=== PATIENT | female | born 1945 | race Caucasian/White ===

== ENCOUNTER 2018-03-10 14:55 | Emergency (ER) | payer MEDICARE, OTHER, SELFPAY ==
[2018-03-10 14:56] VITALS: BP 122/72; PULSE 60; RESP 14; TEMP 36.2; O2SAT 99; BMI 23.8
--- NOTE | 2018-03-10 15:22 | EKG12_ITS ---
Test Reason : SYNCOPE Blood Pressure : / mmHG Vent. Rate : 053 BPM Atrial Rate : 053 BPM P-R Int : 168 ms QRS Dur : 072 ms QT Int : 484 ms P-R-T Axes : 012 000 018 degrees QTc Int : 454 ms Sinus bradycardia Low voltage QRS (limb leads) Confirmed by DICK URIAS, JOSE ([id number]), industrial editor KRISTOPHER DE LA TORRE ([id number]) on 03/12/2018 11:47:24 AM Referred By: INES Confirmed By:JOSE JENNINGS MD
--- NOTE | 2018-03-10 15:29 | ED.VISSUMM ---
- ER Visit Summary Date of Service: 03/10/18 Chief Complaint: Syncope History of Present Illness: The patient is a [address] Becerril. She reports approximately 10:00 this morning she had just stood from having a bowel movement. She reports that she had minimal straining while doing this. She had no symptoms while on the commode. Specifically she denies lightheadedness, chest pain, palpitations, shortness of breath, or abdominal pain. She stood up and had pulled up her pants when she had a syncopal episode. She denied any symptoms that preceded this. Patient estimates that she was out for 1-2 minutes. When she woke she was diaphoretic. However, she still was not experiencing any chest pain, palpitations, abdominal pain, or nausea. She reports that she took her blood pressure and it was 95 systolic this morning. States that typically her blood pressure is 120/80. She states that she was seen in the office and her blood pressure was 102 systolic while sitting and 90 systolic when she stood. Patient denies any injury from the fall. She did not hit her head and does not have a headache now. She is not on blood thinners. She denies any neck, back, shoulder, wrist, or hip pain. Patient has not been ill recently. She denies any chest pain or change in dyspnea exertion in the past month. Review of systems: General: No fever, chills, cold sweats. Cardiovascular: No chest pain, palpitations. Respiratory: No cough, shortness of breath, dyspnea on exertion. Gastrointestinal: No abdominal pain, nausea, vomiting, diarrhea, melena, or hematochezia. Genitourinary: No dysuria, frequency, hematuria. Skin: No rash. Neuro: No headache, numbness, weakness. Physical Examination: Vitals: Stable. Afebrile. General: Well-nourished and well-developed. Head: Normocephalic atraumatic. Neck: Supple, no lymphadenopathy. No JVD. Nontender. Cardiovascular: Regular rate and rhythm. No murmurs. Respiratory: No respiratory distress. Clear to auscultation bilaterally. Abdominal: Soft, nontender, nondistended, normal bowel sounds. No guarding, rebound, or peritoneal signs. Back: Nontender. Extremities: Nontender, no edema. Skin: Normal color, no rash. Neurologic: Alert and oriented ?3. Cranial nerves II through XII are intact. Normal strength and sensation. Psych: Normal affect. Test Results: EKG is sinus bradycardia at 53. Is unchanged from December 2015 except her rate was 83 then. Troponin is negative. Chem-7 is marked for BUN of 19 and a BUN/creatinine ratio 32.8. CBC is marked for monocytes of 11. UA shows leukocytes, but is otherwise negative. Emergency Department Course and Treatment: Patient had positive orthostatic vital signs. She was given a liter of normal saline and feels much improved. Treatment Plan: Patient will be discharged instructions to follow with her primary care physician 1-2 days if not improving. Push fluids. Return to the emergency department for any worsening symptoms. Disposition: To home in improved and stable condition. Impression: 1. Orthostatic hypotension. 2. Dehydration. This note was generated with [employer] dictation software. It may contain incorrect words, spelling, and punctuation that were not noted in review of the chart prior to signing ED Disposition - Plan for ED Patient: Chief Complaint: Syncope Instructions: ED Hypotension Orthostatic Referrals: Annie Becerril DO [Primary Care Provider] - 1-2 Days if not improving
[2018-03-10] MEDS: 0.9% Normal Saline 1,000 ML 1000 ML IV (16:00)
[2018-03-10 16:11] LABS: Absolute Lymphocyte Count 1.84 X10^3/ul (0.83-4.51); Absolute Neutrophil Count 3.4 X10^3/uL (2.0-7.7); Basophil# 0.01 X10^3/uL; Basophil% 0.2 % (0-1); Eosinophil# 0.08 X10^3/uL; Eosinophils% 1.3 % (0-5); Hematocrit 40.5 % (37-47); Hemoglobin 13.7 g/dl (12.0-15.0); Lymphocyte # 1.84 X10^3/ul (4.0); Lymphocyte % 30.8 % (19-41); Mean Corp Hgb Conc 33.8 g/gl (32-36); Mean Corpuscular Hgb 30.3 pg (27.0-32.0); Mean Corpuscular Volume 89.6 fL (81-99); Mean Platelet Vol. 10.2 fl (6.2-12.0); Monocyte# 0.67 X10^3/uL; Monocyte% 11.2 % (0-10); Neutrophil # 3.38 X10^3/uL (2.7-7.7); Neutrophil % 56.5 % (47-70); POSITIVE COUNT NO; POSITIVE DIFFERENTIAL NO; POSITIVE MORPHOLOGY NO; Platelet Count 173 K/mm3 (150-450); RBC Distribution Width CV 14.1 % (11.6-14.6); RBC Distribution Width SD 45.8 fl (35.1-43.9); Red Blood Count 4.52 M/mm3 (4.2-5.4)
[2018-03-10 16:13] LABS: Bacteria 0 SEEN /hpf (None Seen); Mucous, Urine 0 SEEN /hpf (<or=2+); Red Blood Cells-Urine 0 SEEN /hpf (0-5); Squamous Epithelial Cells - UA 0 SEEN /hpf (5-10); White Blood Cells 0 SEEN /hpf (0-5)
[2018-03-10 16:19] LABS: Color, Urine Yellow (Yellow); Glucose, Dipstick Normal (Normal); Ketone-Dipstick Negative (Negative); Leukocyte Esterase-Dipstick 25 /ul (Negative); Nitrite-Dipstick Negative (Negative); Occult Blood-Urine Negative /ul (Negative); Protein-Dipstick Negative (Negative); Urine Bilirubin Dipstick Negative (Negative); Urine Clarity Clear (Clear); Urine Urobilinogen Normal (Normal)
[2018-03-10 16:22] VITALS: BP 105/83; BP 118/68; BP 125/65; PULSE 52; PULSE 54; PULSE 66
[2018-03-10 16:29] LABS: Anion Gap 8 (5-15); BUN 19 mg/dL (7-18); BUN/Creat Ratio 32.8 RATIO (10-20); Calcium,Total 9.1 mg/dL (8.5-10.1); Chloride 105 mmol/L (98-107); Creatinine, Serum 0.58 mg/dL (0.55-1.02); EST Glomerular Filtration Rate 109 mL/min (>60); Est Glom Filt Rate - Afr Amer 132 mL/min (>60); Estimated Creatinine Clearance 38.94 ml/min; Glucose 91 mg/dL (74-106); Magnesium 2.1 mg/dL (1.6-2.6); Potassium 3.8 mmol/L (3.5-5.1); Sodium Level 137 mmol/L (136-145)
[2018-03-10 18:04] VITALS: BP 113/65; PULSE 67; RESP 12; O2SAT 96
[2018-03-10] MEDS: 0.9% Normal Saline 1,000 ML 999 ML IV (18:16)
[2018-03-10 19:09] VITALS: BP 123/63; PULSE 68; RESP 21; O2SAT 98
== END 2018-03-10 19:11 | disposition home or self-care (01) ==
PROVIDERS: Emergency Provider Emergency Medicine; Family Provider Internal Medicine; PCP Internal Medicine
DX: I95.1 Orthostatic hypotension (principal); E86.0 Dehydration; E78.00 Pure hypercholesterolemia, unspecified; F32.9 Major depressive disorder, single episode, unspecified; M85.80 Other specified disorders of bone density and structure, unspecified site; M06.9 Rheumatoid arthritis, unspecified; Z85.3 Personal history of malignant neoplasm of breast; Z79.82 Long term (current) use of aspirin; Z79.899 Other long term (current) drug therapy
CPT/HCPCS: 36591; 80048; 81001; 83735; 84443; 84484; 85025; 93005; 96360; 96361; 99284; J7030; A4216

== ENCOUNTER → 2018-07-13 09:47 | Outpatient (CLI) | payer MEDICARE, OTHER, SELFPAY ==
--- NOTE | 2018-07-13 09:51 | BI_ITS ---
MAMMOGRAPHY - BILATERAL SCREENING REASON FOR EXAM: Female, 72 years old. Routine annual screening examination. PERTINENT HISTORY: Personal history of breast cancer. Prior left lumpectomy with radiation and chemotherapy. TECHNIQUE: Digital bilateral breast javier (3D mammographic acquisition) in the CC and MLO projections. 2-D mediolateral oblique (MLO) and craniocaudad (CC) views of both breasts were obtained. CAD: Full Field Digital Mammography with Computer Added Detection was performed. COMPARISON: Comparison is made with prior study dated July 10, 2017 and June 19, 2016. FINDINGS: Breast Composition: There are scattered areas of fibroglandular density. There are no dominant masses or suspicious calcifications. Once again, the patient is status post left lumpectomy with resultant breast deformity and architectural distortion. This is unchanged. No other significant abnormalities are identified. There has been no significant change since the prior study. BI/SCREENING MAMM (CAD), BILAT IMPRESSION: Stable bilateral screening mammogram. Yearly follow-up mammogram recommended. (A) ASSESSMENT CATEGORY: BIRADS Category 2: Benign. A letter regarding these results will be sent to the patient by the facility within 30 days. Approximately 10% of breast cancers are not detected by mammography. A normal mammogram should not delay biopsy of a clinically suspicious abnormality. [id number] Electronically Signed: Ramiro Gilman MD at 14:01 EST Tel [phone], Service support ,
== END ==
PROVIDERS: Family Provider Internal Medicine; PCP Internal Medicine; Referring Provider Radiology Radiation Oncology; Visit Provider Radiology Radiation Oncology
DX: Z12.31 Encounter for screening mammogram for malignant neoplasm of breast (principal); Z85.3 Personal history of malignant neoplasm of breast
CPT/HCPCS: 77063; 77067

== ENCOUNTER → 2018-11-12 14:04 | Outpatient (CLI) | payer MEDICARE, OTHER, SELFPAY ==
[2018-07-21 13:09] VITALS: BMI 24.3
== END ==
PROVIDERS: Family Provider Internal Medicine; PCP Internal Medicine; Referring Provider Urology; Visit Provider Urology
DX: R30.0 Dysuria (principal)
CPT/HCPCS: 87086; 87088

== ENCOUNTER → 2019-07-14 09:49 | Outpatient (CLI) | payer MEDICARE, OTHER, SELFPAY ==
[2019-01-25 13:47] VITALS: BMI 25.4
--- NOTE | 2019-07-14 09:51 | BI_ITS ---
MAMMOGRAPHY - BILATERAL SCREENING REASON FOR EXAM: Female, 73 years old. Routine annual screening examination. PERTINENT HISTORY: Personal history of breast cancer. Prior left lumpectomy with chemotherapy and radiation therapy. TECHNIQUE: Digital bilateral breast almita (3D mammographic acquisition) in the CC and MLO projections. 2-D mediolateral oblique (MLO) and craniocaudad (CC) views of both breasts were obtained. CAD: Full Field Digital Mammography with Computer Added Detection was performed. COMPARISON: Comparison is made with prior examination of July 13, 2018 and July 10, 2017. FINDINGS: Breast Composition: The breasts are heterogeneously dense, which may obscure small masses. There are no dominant masses or suspicious calcifications. Postoperative changes with deformity and architectural distortion in the deep mid lateral portion of the left breast. A port is seen in the axillary region of the right breast. No other significant abnormalities are identified. There has been no significant change since the prior study. BI/SCREEN MAMM (CAD) W/ALMITA BILAT IMPRESSION: Stable bilateral screening mammogram. Yearly follow-up mammogram recommended. (A) ASSESSMENT CATEGORY: BIRADS Category 2: Benign. A letter regarding these results will be sent to the patient by the facility within 30 days. Approximately 10% of breast cancers are not detected by mammography. A normal mammogram should not delay biopsy of a clinically suspicious abnormality. [id number] Electronically Signed: Ramiro Gilman, at 10:50 EST , Service support ,
== END ==
PROVIDERS: Family Provider Internal Medicine; PCP Internal Medicine; Referring Provider Nurse Practitioner Family; Visit Provider Nurse Practitioner Family
DX: Z12.31 Encounter for screening mammogram for malignant neoplasm of breast (principal); Z85.3 Personal history of malignant neoplasm of breast
CPT/HCPCS: 77063; 77067

== ENCOUNTER → 2020-01-20 12:45 | Outpatient (CLI) | payer MEDICARE, OTHER, SELFPAY ==
[2019-07-22 13:55] VITALS: BMI 26.0
--- NOTE | 2020-01-20 12:54 | CDU_ITS ---
Reason For Study: occlusion and stenosis of carotid artery Rt. Velocities/BP Lt. Velocities/BP Prox CCA 82.6/16.0 cm/sec. Prox CCA 73.9/19.0 cm/sec. Mid CCA 64.3/20.0 cm/sec. Mid CCA 72.8/20.1 cm/sec. Dist CCA 60.4/17.3 cm/sec. Dist CCA 73.9/21.2 cm/sec. Prox ICA 52.6/14.7 cm/sec. Prox ICA 79.4/25.6 cm/sec. Mid ICA 49.9/17.3 cm/sec. Mid ICA 74.1/20.8 cm/sec. Dist ICA 65.6/17.3 cm/sec. Dist ICA 86.0/27.8 cm/sec. Rt. ICA/CCA = 1.0. Lt. ICA/CCA = 1.2. Prox ECA 119.1/14.7 cm/sec. Prox ECA 87.1/12.4 cm/sec. Rt. Vert. 31.1/11.3 cm/sec. Lt. Vert. 69.5/22.3 cm/sec. Right Extracranial There is intimal thickening but no significant atherosclerotic plaque noted in the right common carotid artery. There is heterogeneous, irregular atherosclerotic plaque noted in the right internal carotid artery. There is heterogeneous, irregular atherosclerotic plaque noted in the right external carotid artery. Antegrade flow is noted in the right vertebral artery. Left Extracranial There is heterogeneous, smooth atherosclerotic plaque noted in the left common carotid artery. There is heterogeneous, irregular atherosclerotic plaque noted in the left internal carotid artery. There is heterogeneous, irregular atherosclerotic plaque noted in the left external carotid artery. Antegrade flow is noted in the left vertebral artery. Procedure Carotid Duplex [id number]. The exam was diagnostic. Exam performed in department. Interpretation Summary Mild (<50%) stenosis right extracranial internal carotid. Mild (<50%) stenosis left extracranial internal carotid. Acoustic shadowing is present in the proximal left internal carotid artery, which obscures visualization of the arterial lumen. The degree of stenosis appears to be <50% based upon velocity criteria. However, this cannot be corroborated by kam-scale imaging. Therefore, clinical correlation is advised, and alternative imaging may be helpful. Flow within the vertebral arteries is antegrade bilaterally. Ordering Physician: Annie Becerril Performed By: Don Winters RVT
== END ==
PROVIDERS: PCP Internal Medicine; Referring Provider Internal Medicine; Visit Provider Internal Medicine
DX: I65.23 Occlusion and stenosis of bilateral carotid arteries (principal)
CPT/HCPCS: 93880

== ENCOUNTER → 2020-06-06 11:57 | Outpatient (CLI) | payer MEDICARE, OTHER, SELFPAY ==
[2019-07-22 13:55] VITALS: BMI 26.0
--- NOTE | 2020-06-06 11:59 | US_ITS ---
STUDY: RENAL ULTRASOUND - COMPLETE REASON FOR EXAM: Female, 74 years old. UTI TECHNIQUE: Ultrasound evaluation of the kidneys was performed with real-time and static boles-scale imaging. COMPARISON: None. FINDINGS: Aorta: Not visualized. IVC: Visualized portions appear patent. Right kidney: Measures 9.8 cm. Normal contour. Renal cortical thickness appears normal. No cysts. No masses, stones, or hydronephrosis identified. Left kidney: Measures 10.2 cm. Normal contour. Renal cortical thickness appears normal. No cysts. No masses, stones, or hydronephrosis identified. Bladder: No intrinsic masses, stones, or abnormal dilatation noted. US/Kidney and Bladder IMPRESSION: Renal ultrasound is within normal limits. Electronically Signed: Eric Salguero, at 21:29 EDT Tel , Service support ,
== END ==
PROVIDERS: PCP Internal Medicine; Referring Provider Urology; Visit Provider Urology
DX: N39.0 Urinary tract infection, site not specified (principal)
CPT/HCPCS: 76770

== ENCOUNTER 2020-06-20 08:31 | Day surgery (SDC) | payer MEDICARE, OTHER, SELFPAY ==
[2019-07-22 13:55] VITALS: BMI 26.0
--- NOTE | 2020-06-19 10:30 | EKG12_ITS ---
Test Reason : PREOP Blood Pressure : / mmHG Vent. Rate : 061 BPM Atrial Rate : 061 BPM P-R Int : 152 ms QRS Dur : 070 ms QT Int : 426 ms P-R-T Axes : 014 -04 016 degrees QTc Int : 428 ms Normal sinus rhythm Normal ECG Confirmed by KEIRA URIAS, GAUILAR ([id number]), associate entertainment editor KINZA GÓMEZ ([id number]) on 06/20/2020 10:56:54 AM Referred By: Concepción Conway Confirmed By:AGUILAR CROCKETT MD
--- NOTE | 2020-06-19 10:34 | RAD_ITS ---
STUDY: X-RAY CHEST REASON FOR EXAM: Female, 74 years old. Preop chest xray for biopsy of urinary bladder, pt states lumpectomy on left side x 5 years ago TECHNIQUE: PA and lateral views of the chest. COMPARISON: Comparison is made with prior examination dated 12/14/2015. FINDINGS: A right-sided portacatheter is in situ with the tip at the junction of the superior vena cava and right atrium. Hyperinflation. The lungs are clear. There is no demonstrated pleural abnormality. Normal size heart. Normal mediastinum and inna. Normal visualized pulmonary arteries. There is atherosclerotic calcification of the aortic arch with tortuosity. There are diffuse degenerative changes of the visualized thoracic spine. Normal visualized ribs, clavicles, and shoulders. Hiatal hernia. RAD/Chest PA and Lateral IMPRESSION: Hyperinflation. No acute abnormality is seen. Electronically Signed: Ramiro Gilman, at 15:59 EST , Service support ,
[2020-06-19 11:19] LABS: Hematocrit 41.3 % (37-47); Hemoglobin 13.2 g/dL (12.0-15.0); Mean Corpuscular Hgb 29.5 pg (27.0-32.0); Mean Corpuscular Volume 92.4 fL (81-99); Mean Platelet Vol. 9.9 fl (6.2-12.0); Platelet Count 170 K/mm3 (150-450); RBC Distribution Width CV 13.5 % (11.6-14.6); RBC Distribution Width SD 44.9 fl (35.1-43.9); Red Blood Count 4.47 M/mm3 (4.2-5.4); White Blood Count 4.7 K/mm3 (4.4-11.0)
[2020-06-19 11:50] LABS: AST(SGOT) 21 U/L (15-37); Alanine Aminotransfer ALT/SGPT 26 U/L (13-56); Albumin, Serum 3.9 g/dL (3.2-5.0); Alkaline Phosphatase 64 U/L (45-117); Bilirubin, Direct 0.18 mg/dL (0.00-0.30); Globulin 3.4 g/dL (2.2-4.2); Protein, Total 7.3 g/dL (6.4-8.2)
[2020-06-20 08:46] VITALS: BP 120/85; PULSE 72; RESP 14; TEMP 36.3; O2SAT 97; BMI 25.2
[2020-06-20] MEDS: Lactated Ringers 1,000 ML 100 ML IV (09:10)
--- NOTE | 2020-06-20 09:26 | PCM.OPRPT ---
Problem List (1) Neoplasm of unspecified behavior of bladder Status: Acute Report of Operation Date of Procedure: 06/20/20 Pre-Operative Diagnosis: bladder neoplasm unspecified behavior Post-Operative Diagnosis: same Surgery/Procedure Performed:: cystoscopy with bladder biopsy and fulguration Type of Anesthesia:: General Specimen's removed: Bladder biopsy Description of Procedure: The patient is a 74-year-old female who had a cystoscopy done in the office for evaluation of urinary tract infections. She was identified as having 2 areas of erythema possible ulceration versus early neoplasm. She now presents for biopsy and fulguration for hemostatic control and tissue treatment. Informed consent was obtained including a discussion of COVID-19. Patient was taken to the operating room and placed on the operating room table. Anesthesia monitored the head, neck, airway, IV access and vital signs throughout the case. Once anesthesia was appropriately administered the patient was placed into dorsal lithotomy position was prepped and draped in usual sterile fashion. The cystoscope with 30 degree lens was inserted through the urethra under direct visualization. The ulcerations seen in the office were seen here today as well. There is one more towards the right lateral wall but also posterior approximately 1.5 cm in size. A second posterior bladder wall ulceration/area of erythema was visualized as well approximately 1 cm in size. Both of these areas were biopsied with flexible biopsy forceps. Both areas were fulgurated for hemostatic control and tissue treatment. The patient's bladder was then emptied. Hemostasis was achieved and there was no injury to the ureters. At this time the patient was awakened and taken to the recovery room in good condition. There were no complications during the procedure. Grafts/Implants Used: none - Complications None - Admit VTE Documentation VTE Present on Admission: Yes VTE Mechan Device Prophylaxis: SCD's VTE Pharm Prophylaxis ordered?: No Reason prophylaxis not ordered:: Treatment Not Indicated
--- NOTE | 2020-06-20 09:30 | PCM.DC.URO ---
Discharge Diet: No Restrictions Discharge Activity: May not drive while taking narcotic pain medications. May resume sexual activity in: No Restrictions Call your doctor if you observe: Fever of 101 or Higher, Inability to urinate, Inability to have a bowel movement Allergies/Adverse Reactions: Allergies No Known Allergies Allergy (Verified 06/16/20 15:06) Medications to take at Discharge Cholecalciferol (VIT D3) [Vitamin D3] 1,000 unit PO MOFR 09/01/15 Citalopram [Celexa] 20 mg PO DAILY 09/01/15 Folic Acid 1 mg PO DAILY@0800 09/01/15 Multivitamins,Therapeutic [Multivitamin] 1 tablet PO DAILY 09/01/15 Simvastatin [Zocor] 20 mg PO QHS 09/01/15 Etanercept [Enbrel] 25 mg SQ TUTH 01/21/17 Methotrexate 6 tab PO QWEEK 01/21/17 Alendronate Sodium [Fosamax] 10 mg PO QWEEK 01/20/18 Aspirin [Aspirin EC] 81 mg PO DAILY 03/10/18 Hypromellose [Systane Gel] 10 gm LEFT EYE QHS 03/10/18 Lidocaine/Prilocaine [Lidocaine-Prilocaine Cream] 1 applicatio TP DAILY PRN PRN 03/10/18 Cephalexin [Keflex] 500 mg PO Q12 3 Days #6 cap 06/20/20 Hydrocodone Bitart/Apap 5-325 [[place] 5MG-325MG] 1 tablet PO Q6H PRN PRN 7 Days #5 tablet 06/20/20 Phenazopyridine [Pyridium] 100 mg PO TID #30 tab 06/20/20 The following prescriptions were given: Cephalexin [Keflex] 500 mg PO Q12 3 Days #6 cap Transmission Status: Pending to [facility] Hydrocodone Bitart/Apap 5-325 [[place] 5MG-325MG] 1 tablet PO Q6H PRN PRN 7 Days #5 tablet PRN Reason: Pain Transmission Status: Sent to [facility] Phenazopyridine [Pyridium] 100 mg PO TID #30 tab Transmission Status: Pending to [facility] Primary Care Physician: Annie Becerril DO [Primary Care Provider] - Test Results: Test results from this visit will be discussed in further detail at your follow-up appointment, if applicable. Please Follow Up With: Concepción Conway MD When: call office for appt next week Proposed Discharge Date: 06/20/20
[2020-06-20] MEDS: Cefazolin 2 GM in 0.9% Normal Saline 100 ML IV (09:39)
--- NOTE | 2020-06-20 10:20 | BLA_PTH ---
PATIENT: CHARMAINE DÍAZ LOC: [facility] U#:[id number] AGE/SX: 74/F ROOM: RE06/20/[address]: Dr. Concepción Conway MD : [id number] BED: DIS: 06/20/2020 SPEC #: [id number] RECD: 06/20/20 12:03 STATUS: PARKER ROBB #: [id number] DARIO: 06/20/20 10:[address]: Concepción Conway DEPT: SURGICAL PATHOLOGY RECD BY: Queenie Kramer ENTERED: 06/20/20 13:04 SP TYPE: BLADDER BX OTHR DR: Dr. Annie Becerril DO Tissues: Urinary bladder, NOS Procedures: Surgery Specimen Level IV HEADER OPERATION: Cysto, biopsy, fulguration, bladder tumor PRE-OP DIAGNOSIS: Neoplasm of bladder TISSUE SUBMITTED: Bladder biopsy MICROSCOPIC DIAGNOSIS Bladder, biopsy: Fragments of urothelial mucosa with moderate chronic inflammation and mild acute inflammation. Negative for malignancy. See comment. JOSE:estrellita 06/21/20 COMMENT The epithelium is denuded in most of the specimen. Detrusor muscle is present in the submitted specimen. MICROSCOPIC DESCRIPTION Slides are reviewed. GROSS DESCRIPTION Received in fixative is one container labeled with the patient's name and designated bladder biopsy. The specimen consists of multiple irregular fragments of light hernandez soft tissue that in aggregate measure 1 x 0.2 x 0.1 cm. The specimen is totally submitted in one cassette. / JOSE:estrellita 06/20/29 TC:3 CPT: 90143
[2020-06-20 10:25] VITALS: BP 120/85; BP 128/76; PULSE 71; RESP 16; TEMP 36.3; O2SAT 94
[2020-06-20 10:30] VITALS: BP 120/85; BP 122/56; PULSE 60; RESP 16; O2SAT 95
[2020-06-20 10:45] VITALS: BP 120/85; BP 127/78; PULSE 64; RESP 16; O2SAT 95
[2020-06-20 11:00] VITALS: BP 120/85; BP 145/44; PULSE 60; RESP 16; TEMP 36.3; O2SAT 95
[2020-06-20 11:48] VITALS: BP 120/85; BP 134/72; PULSE 73; RESP 18; TEMP 36.3; O2SAT 97
== END 2020-06-20 11:52 | disposition home or self-care (01) ==
LOC: SDC 08:31 → AC 08:32
PROVIDERS: Anesthesiology; PCP Internal Medicine; Referring Provider Urology; Visit Provider Urology
PROC: 0TBB8ZX Excision of Bladder, Via Natural or Artificial Opening Endoscopic, Diagnostic (ICD-10-PCS; CPT 52204; principal; 2020-06-20 10:10)
DX: D41.4 Neoplasm of uncertain behavior of bladder (principal); N39.46 Mixed incontinence; N95.2 Postmenopausal atrophic vaginitis; R35.1 Nocturia; F32.9 Major depressive disorder, single episode, unspecified; M06.9 Rheumatoid arthritis, unspecified; E78.2 Mixed hyperlipidemia; Z78.0 Asymptomatic menopausal state; Z85.3 Personal history of malignant neoplasm of breast; Z87.440 Personal history of urinary (tract) infections; Z79.899 Other long term (current) drug therapy; Z79.82 Long term (current) use of aspirin; Z87.891 Personal history of nicotine dependence; Z20.828 Contact with and (suspected) exposure to other viral communicable diseases
CPT/HCPCS: 00910; 52204; 36415; 71046; 80076; 85027; 87426; 88305; 93005; C9803; J7120; J2405

== ENCOUNTER → 2020-07-07 08:46 | Outpatient (CLI) | payer MEDICARE, OTHER, SELFPAY ==
[2020-06-20 08:46] VITALS: BMI 25.2
[2020-07-07 09:20] LABS: Absolute Lymphocyte Count 1.43 X10^3/uL (0.83-4.51); Absolute Neutrophil Count 2.5 X10^3/uL (2.0-7.7); Basophil# 0.04 X10^3/uL; Basophil% 0.9 % (0-1); Eosinophil# 0.12 X10^3/uL; Eosinophils% 2.6 % (0-5); Hemoglobin 13.1 g/dL (12.0-15.0); Lymphocyte # 1.43 X10^3/ul (4.0); Lymphocyte % 30.6 % (19-41); Mean Platelet Vol. 9.9 fl (6.2-12.0); Monocyte# 0.63 X10^3/uL; Monocyte% 13.5 % (0-10); NRBC Flagged by Analyzer 0 % (0-5); Neutrophil # 2.45 X10^3/uL (2.7-7.7); Neutrophil % 52.2 % (47-70); Platelet Count 191 K/mm3 (150-450); RBC Distribution Width CV 13.8 % (11.6-14.6); RBC Distribution Width SD 46.7 fl (35.1-43.9); Red Blood Count 4.36 M/mm3 (4.2-5.4); White Blood Count 4.7 K/mm3 (4.4-11.0)
[2020-07-07 10:17] LABS: ALB/GLOB Ratio 1.1 RATIO (0.9-2.4); AST(SGOT) 29 U/L (15-37); Alanine Aminotransfer ALT/SGPT 27 U/L (13-56); Albumin, Serum 3.7 g/dL (3.2-5.0); Alkaline Phosphatase 66 U/L (45-117); Anion Gap 5 (5-15); BUN 22 mg/dL (7-18); BUN/Creat Ratio 25.9 RATIO (10-20); Chloride 110 mmol/L (98-107); Cholesterol 140 mg/dL (200); Creatinine, Serum 0.85 mg/dL (0.55-1.02); EST Glomerular Filtration Rate 70 mL/min (>60); Est Glom Filt Rate - Afr Amer 84 mL/min (>60); Globulin 3.5 g/dL (2.2-4.2); Glucose 105 mg/dL (74-106); High Density Lipoprotein 56 mg/dL; Potassium 4.2 mmol/L (3.5-5.1); Protein, Total 7.2 g/dL (6.4-8.2); Sodium Level 141 mmol/L (136-145); Thyroid Stim Hormone (TSH) 1.23 uIU/mL (0.358-3.74); Triglycerides 143 mg/dL; Very Low Density Lipoprotein 29 mg/dL (5-40)
== END ==
PROVIDERS: PCP Internal Medicine; Referring Provider Internal Medicine; Visit Provider Internal Medicine
DX: E78.2 Mixed hyperlipidemia (principal)
CPT/HCPCS: 36415; 80053; 80061; 84443; 85025

== ENCOUNTER → 2020-07-19 07:46 | Outpatient (CLI) | payer MEDICARE, OTHER, SELFPAY ==
[2019-07-22 13:55] VITALS: BMI 26.0
[2020-06-20 08:46] VITALS: BMI 25.2
--- NOTE | 2020-07-19 07:48 | BI_ITS ---
MAMMOGRAPHY - BILATERAL SCREENING REASON FOR EXAM: Female, 74 years old. Routine annual screening examination. PERTINENT HISTORY: Personal history of breast cancer. History of prior left lumpectomy with chemotherapy and radiation therapy. TECHNIQUE: Digital bilateral breast almita (3D mammographic acquisition) in the CC and MLO projections. 2-D mediolateral oblique (MLO) and craniocaudad (CC) views of both breasts were obtained. CAD: Full Field Digital Mammography with Computer Added Detection was performed. COMPARISON: Comparison is made with prior study dated 07/14/2019 and 07/13/2018. FINDINGS: Breast Composition: The breasts are heterogeneously dense, which may obscure small masses. Stable deformity of the left breast with architectural distortion in the deep upper lateral aspect of left breast in keeping with the postoperative changes. Stable secretory calcification in the right axillary region. A tissue clip marker is seen in the upper lateral aspect of the right breast. No other significant abnormalities are identified. There has been no significant change since the prior study. BI/SCREEN MAMM (CAD) W/ALMITA BILAT IMPRESSION: Stable bilateral screening mammogram. Yearly follow-up mammogram recommended. (A) ASSESSMENT CATEGORY: BIRADS Category 2: Benign. A letter regarding these results will be sent to the patient by the facility within 30 days. Approximately 10% of breast cancers are not detected by mammography. A normal mammogram should not delay biopsy of a clinically suspicious abnormality. [id number] Electronically Signed: Ramiro Gilman, at 9:28 EST , Service support ,
== END ==
PROVIDERS: PCP Internal Medicine; Referring Provider Internal Medicine Medical Oncology; Visit Provider Internal Medicine Medical Oncology
DX: Z12.31 Encounter for screening mammogram for malignant neoplasm of breast (principal); Z85.3 Personal history of malignant neoplasm of breast
CPT/HCPCS: 77063; 77067

== ENCOUNTER → 2020-09-01 13:16 | Outpatient (CLI) | payer MEDICARE, OTHER, SELFPAY ==
[2020-07-26 11:11] VITALS: BMI 25.3
[2020-09-01 14:52] LABS: Absolute Lymphocyte Count 2.37 X10^3/uL (0.83-4.51); Absolute Neutrophil Count 3.8 X10^3/uL (2.0-7.7); Basophil# 0.06 X10^3/uL; Basophil% 0.8 % (0-1); Eosinophils% 2.8 % (0-5); Hematocrit 34.9 % (37-47); Hemoglobin 11.2 g/dL (12.0-15.0); Lymphocyte # 2.37 X10^3/ul (4.0); Lymphocyte % 33.5 % (19-41); Mean Corp Hgb Conc 32.1 g/dL (32-36); Mean Corpuscular Hgb 31.9 pg (27.0-32.0); Mean Corpuscular Volume 99.4 fL (81-99); Mean Platelet Vol. 10.6 fl (6.2-12.0); Monocyte# 0.65 X10^3/uL; Monocyte% 9.2 % (0-10); NRBC Flagged by Analyzer 0 % (0-5); Neutrophil # 3.77 X10^3/uL (2.7-7.7); Neutrophil % 53.4 % (47-70); Platelet Count 219 K/mm3 (150-450); RBC Distribution Width CV 14.7 % (11.6-14.6); RBC Distribution Width SD 53.1 fl (35.1-43.9); Red Blood Count 3.51 M/mm3 (4.2-5.4); White Blood Count 7.1 K/mm3 (4.4-11.0)
== END ==
PROVIDERS: PCP Internal Medicine; Referring Provider Internal Medicine Rheumatology; Visit Provider Internal Medicine Rheumatology
DX: D64.9 Anemia, unspecified (principal)
CPT/HCPCS: 36415; 85025

== ENCOUNTER → 2020-09-08 | Outpatient (CLI) | payer MEDICARE, OTHER, SELFPAY ==
[2020-07-26 11:11] VITALS: BMI 25.3
[2020-09-08 15:39] LABS: Absolute Lymphocyte Count 2.14 X10^3/uL (0.83-4.51); Absolute Neutrophil Count 2.7 X10^3/uL (2.0-7.7); Basophil# 0.05 X10^3/uL; Basophil% 0.9 % (0-1); Eosinophil# 0.15 X10^3/uL; Eosinophils% 2.6 % (0-5); Hematocrit 39.2 % (37-47); Hemoglobin 12.3 g/dL (12.0-15.0); Lymphocyte # 2.14 X10^3/ul (4.0); Lymphocyte % 37.3 % (19-41); Mean Corp Hgb Conc 31.4 g/dL (32-36); Mean Corpuscular Hgb 31.3 pg (27.0-32.0); Mean Corpuscular Volume 99.7 fL (81-99); Mean Platelet Vol. 10.5 fl (6.2-12.0); Monocyte% 12.2 % (0-10); NRBC Flagged by Analyzer 0 % (0-5); Neutrophil # 2.68 X10^3/uL (2.7-7.7); Neutrophil % 46.8 % (47-70); Platelet Count 218 K/mm3 (150-450); RBC Distribution Width CV 13.8 % (11.6-14.6); RBC Distribution Width SD 50.4 fl (35.1-43.9); Red Blood Count 3.93 M/mm3 (4.2-5.4); White Blood Count 5.7 K/mm3 (4.4-11.0)
[2020-09-08 15:43] LABS: ALB/GLOB Ratio 1.5 RATIO (0.9-2.4); AST(SGOT) 21 U/L (15-37); Alanine Aminotransfer ALT/SGPT 29 U/L (13-56); Albumin, Serum 4.3 g/dL (3.2-5.0); Alkaline Phosphatase 61 U/L (45-117); Anion Gap 6 (5-15); BUN 27 mg/dL (7-18); BUN/Creat Ratio 35.2 RATIO (10-20); Calcium,Total 9.2 mg/dL (8.5-10.1); Chloride 108 mmol/L (98-107); Creatinine, Serum 0.77 mg/dL (0.55-1.02); EST Glomerular Filtration Rate 78 mL/min (>60); Est Glom Filt Rate - Afr Amer 95 mL/min (>60); Globulin 2.8 g/dL (2.2-4.2); Glucose 91 mg/dL (74-106); Potassium 4.3 mmol/L (3.5-5.1); Protein, Total 7.1 g/dL (6.4-8.2); Sodium Level 138 mmol/L (136-145)
== END | disposition home or self-care (01) ==
LOC: LABSPEC 15:11
PROVIDERS: PCP Internal Medicine; Visit Provider Internal Medicine
DX: D64.9 Anemia, unspecified (principal); R17 Unspecified jaundice
CPT/HCPCS: 80053; 85025

== ENCOUNTER 2020-11-07 05:46 | Day surgery (SDC) | payer MEDICARE, OTHER, SELFPAY ==
[2020-07-26 11:11] VITALS: BMI 25.3
[2020-11-07 06:22] VITALS: BP 121/75; PULSE 70; RESP 12; TEMP 36.5; O2SAT 95; BMI 25.4
[2020-11-07] MEDS: Lactated Ringers 1,000 ML 100 ML IV (06:35)
[2020-11-07] MEDS: Lubricating Jelly 60 GM Tube 30 GM TOPICAL (07:23)
[2020-11-07] MEDS: Cefazolin 2 GM in 0.9% Normal Saline 100 ML IV (07:25)
--- NOTE | 2020-11-07 07:30 | PCM.OPRPT ---
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 Informed consent was obtained to proceed with cystoscopy and fulguration under anesthesia. She was taken to the operating room and placed on the operating room table. Anesthesia monitored the head, neck, airway, IV access and vital signs throughout the case. Once anesthesia was apparently administered the patient was placed into dorsal lithotomy position was prepped and draped in usual sterile fashion. A cystourethroscopy was performed through the urethra under direct visualization. There were two areas of ulceration identified one on the patient's right lateral wall approximately 1.5 cm in diameter. The other ulceration was on the patient's left posterior bladder wall and was approximately 1 cm in diameter. Both of these areas were fulgurated for tissue treatment. There were no complications during this procedure. The patient's bladder was emptied and the case was terminated. She was awakened and taken to the recovery room in good condition. Grafts/Implants Used: none - Complications none - Admit VTE Documentation VTE Present on Admission: Yes VTE Mechan Device Prophylaxis: SCD's VTE Pharm Prophylaxis ordered?: No Reason prophylaxis not ordered:: Treatment Not Indicated
--- NOTE | 2020-11-07 07:33 | DCINST_ITS ---
Discharge Diet: No Restrictions Discharge Activity: May not drive while taking narcotic pain medications. May resume sexual activity in: No Restrictions Call your doctor if you observe: Fever of 101 or Higher, Inability to urinate, Inability to have a bowel movement, Calf discomfort, Uncontrolled pain Allergies/Adverse Reactions: Allergies No Known Allergies Allergy (Verified 10/31/20 08:41) Medications to take at Discharge Cholecalciferol (VIT D3) [Vitamin D3] 1,000 unit PO MOFR 09/01/15 Citalopram [Celexa] 20 mg PO DAILY 09/01/15 Folic Acid 1 mg PO DAILY@0800 09/01/15 Multivitamins,Therapeutic [Multivitamin] 1 tablet PO DAILY 09/01/15 Simvastatin [Zocor] 20 mg PO QHS 09/01/15 Etanercept [Enbrel] 25 mg SQ TUTH 01/21/17 Methotrexate 6 tab PO QWEEK 01/21/17 Alendronate Sodium [Fosamax] 10 mg PO QWEEK 01/20/18 Aspirin [Aspirin EC] 81 mg PO DAILY 03/10/18 Hypromellose [Systane Gel] 10 gm LEFT EYE QHS 03/10/18 Lidocaine/Prilocaine [Lidocaine-Prilocaine Cream] 1 applicatio TP DAILY PRN PRN 03/10/18 Cranberry 500 mg PO DAILY 07/26/20 Famotidine [Pepcid] 20 mg PO BID 07/26/20 Phenazopyridine [Pyridium] 100 mg PO TID PRN 07/26/20 Primary Care Physician: Annie Becerril DO [Primary Care Provider] - Test Results: Test results from this visit will be discussed in further detail at your follow- up appointment, if applicable. Please Follow Up With: Concepción Conway MD When: call for appt in 1-2 weeks Proposed Discharge Date: 11/07/20
[2020-11-07 08:02] VITALS: BP 119/77; BP 121/75; PULSE 76; RESP 18; TEMP 36.4; O2SAT 93
[2020-11-07 08:15] VITALS: BP 121/75; BP 122/77; PULSE 70; RESP 18; O2SAT 97
[2020-11-07 08:34] VITALS: BP 107/83; BP 121/75; PULSE 64; RESP 18; TEMP 36.3; O2SAT 97
[2020-11-07 09:32] VITALS: BP 116/56; BP 121/75; PULSE 73; RESP 16; TEMP 36.6; O2SAT 98
== END 2020-11-07 09:45 | disposition home or self-care (01) ==
LOC: SDC 05:46 → AC 05:46
PROVIDERS: PCP Internal Medicine; Referring Provider Urology; Visit Provider Urology
PROC: 0TBB8ZX Excision of Bladder, Via Natural or Artificial Opening Endoscopic, Diagnostic (ICD-10-PCS; CPT 52234; principal; 2020-11-07 07:20)
DX: N30.10 Interstitial cystitis (chronic) without hematuria (principal); N32.89 Other specified disorders of bladder; N95.2 Postmenopausal atrophic vaginitis; N39.46 Mixed incontinence; R30.0 Dysuria; E78.2 Mixed hyperlipidemia; K21.9 Gastro-esophageal reflux disease without esophagitis; M06.9 Rheumatoid arthritis, unspecified; F32.9 Major depressive disorder, single episode, unspecified; Z20.822 Contact with and (suspected) exposure to COVID-19; Z79.82 Long term (current) use of aspirin; Z79.899 Other long term (current) drug therapy; Z87.891 Personal history of nicotine dependence
CPT/HCPCS: 52234; 87426; C9803; J7120; J2405

== ENCOUNTER → 2021-03-16 16:54 | Outpatient (CLI) | payer MEDICARE, OTHER, SELFPAY ==
--- NOTE | 2021-03-16 17:30 | MRI_ITS ---
History: Neck pain, right shoulder pain. Hx of breast CA and RA Technique: T1 and T2 MR imaging of the cervical spine performed without contrast enhancement in axial and sagittal planes. Findings: Mild retrolisthesis of C5 and C6 and mild anterior listhesis of C7 on T1 related to underlying disc degeneration and facet arthropathy. No bone marrow edema. Cervical cord is normal. Visualized soft tissues of the neck are normal. C2-3: No disc protrusion. Normal caliber spinal canal and neural foramina. C3-4: No disc protrusion. Normal caliber spinal canal and neural foramina. C4-5: Moderate disc space narrowing minimal bulging the disc. No significant narrowing of the spinal canal or neuroforamina. C5-6: Prominent disc space narrowing and moderate vertebral hypertrophy. Mild posterior ligamentous redundancy. No significant impingement on the spinal canal. Moderate narrowing of the left neural foramen related to uncinate joint hypertrophy. C6-7: Moderate disc space narrowing. Mild disc bulging without significant impingement on the spinal canal. Moderate narrowing of the neural foramina related to uncinate joint hypertrophy. C7-T1: No disc protrusion. Normal caliber spinal canal and neural foramina. MRI/Spine Cervical (Routine) IMPRESSION: Disc degeneration at C4-5, C5-6 and C6-7 without significant spinal stenosis. Neural foraminal narrowing related to uncinate joint hypertrophy. Normal cervical cord. at 0949 Reported and signed by: Denzel Yang MD Electronically Signed: Denzel Yang MD at 9:48 EDT Tel , Service support ,
== END ==
PROVIDERS: PCP Internal Medicine; Referring Provider Internal Medicine Rheumatology; Visit Provider Internal Medicine Rheumatology
DX: M50.321 Other cervical disc degeneration at C4-C5 level (principal)
CPT/HCPCS: 72141

== ENCOUNTER 2021-03-21 13:41 | Observation (INO) | payer MEDICARE, OTHER, SELFPAY ==
[2021-03-21] VITALS (8 sets, daily range): BP systolic 107–150; BP diastolic 61–86; PULSE 66–98; RESP 16–18; TEMP 36.2–36.8; O2SAT 93–99; BMI 22.1; BMI 23.3
--- NOTE | 2021-03-21 14:12 | CT_ITS ---
STUDY: CT HEAD STROKE PROTOCOL W/O CONTRAST INJECTION REASON FOR EXAM: Female, 75 years old. Neuro deficit, acute, stroke suspected RADIATION DOSAGE (If Supplied By Facility): CTDIvol = ( 44.99 ) mGy, DLP = ( 745.49 ) mGycm TECHNIQUE: Transaxial CT imaging of the brain was performed without administration of intravenous contrast material. Individualized dose optimization techniques were used for this CT. COMPARISON: Comparison is made with prior study 03/30/2010. FINDINGS: Normal soft tissue structures. Normal calvarium. There is mild cerebral atrophy with widening of the extra-axial spaces and ventricular dilatation. There is a 7 mm x 7 mm rounded hypodensity in the posterior medial aspect of the right frontal lobe suggestive of an old ischemic insult. Findings suggestive of a small lacunar infarct in the posterior limb of the left internal capsule. These are unchanged. Normal brainstem. Normal cerebellum. There is no intracranial hemorrhage. There are no findings of an acute ischemic infarction. Atherosclerotic calcification of the cavernous portions of the internal carotid arteries bilaterally. Normal visualized paranasal sinuses. CT/STROKE Brain/Head without Cont IMPRESSION: Chronic involutional changes of the brain. N.B. : The above Results were Read Back by Ramiro Gilman MD to Asad Gibbons and understanding confirmed on 03/21/2021 15:07:40 (ET). Electronically Signed: Ramiro Gilman MD at 15:09 EDT , Service support ,
--- NOTE | 2021-03-21 14:12 | EKG12_ITS ---
Test Reason : WEAKNESS Blood Pressure : / mmHG Vent. Rate : 083 BPM Atrial Rate : 083 BPM P-R Int : 140 ms QRS Dur : 072 ms QT Int : 366 ms P-R-T Axes : 025 005 027 degrees QTc Int : 430 ms Normal sinus rhythm Normal ECG Confirmed by OSMANI URIAS, HUGO ([id number]), newspaper editor KINZA GÓMEZ ([id number]) on 03/23/2021 10:10:03 A M Referred By: NAHOMY Confirmed By:NICHOLE KEEN MD
--- NOTE | 2021-03-21 14:14 | EDS_ITS ---
HPI History of Present Illness Chief Complaint: Weakness Informant: patient and PCP Onset/Context/Timing Onset: Yesterday Context: Sudden Onset Timing: Continuous Quality and Location: Positive for - (off-balance) Onset: see below Current Severity: Mild Maximum Severity: Moderate Worsened by: walking Relieved by: remaining still Associated Symptoms Associated Symptoms: Negative for Headache, Nausea, Vomiting and Chest Pain Narrative Narrative: Patient states yesterday morning she was standing at her counter, she told her chin to look down at the counter, and suddenly her legs gave out causing her to almost fall but her was nearby and caught her keeping her from injuring herself. She denies any other symptoms with this at the time such as chest pain, headache, loss of consciousness, dizziness/lightheadedness of any kind, but since then, she has been off balance when walking. When sitting or lying down, she has no symptoms. She has experienced no dizziness or symptoms in her head. No ear symptoms including pain, tinnitus, changes in hearing, discharge. No recent illness, fevers or chills. She did have 3 episodes of loose diarrhea since this occurred, 2 yesterday and 1 today, without any abdominal pain, blood, nausea, vomiting. She called her doctor, her doctor referred her here for further evaluation. Patient takes baby aspirin daily, no anticoagulants. Patient states that her doctor wanted her to have a Covid test. She has had no known contact with anyone with Covid that she knows of. She suspects she had Covid in August based on symptoms she had and the fact that she was around a lot of people with Covid at that time, but she was not tested she subsequently was vaccinated in September. [facility] Medical History (Updated 03/21/21 @ 15:[address] Asad Gibbons MD) Arthritis Breast cancer Depression Hyperlipidemia Interstitial cystitis med port placement Neoplasm of unspecified behavior of bladder Rheumatoid arthritis pain Home Medications cholecalciferol (vitamin D3) [Vitamin D3] 1,000 unit PO MOFR 09/01/15 [History Last Taken 03/19/21] citalopram 20 mg PO DAILY 09/01/15 [History Last Taken 03/21/21] folic acid 1 mg PO DAILY@0800 09/01/15 [History Last Taken 03/21/21] multivitamin with folic acid [Thera] 1 tab PO DAILY 09/01/15 [History Last Taken 03/21/21] simvastatin 20 mg PO QHS 09/01/15 [History Last Taken 03/20/21] Enbrel 25 mg SQ WESA 01/21/17 [History Last Taken 03/17/21] methotrexate sodium 6 tab PO WE 01/21/17 [History Last Taken 03/21/21] Systane Gel 1 drp LEFT EYE QHS 03/10/18 [History Last Taken 03/09/18] aspirin 81 mg PO DAILY 03/10/18 [History Last Taken 03/21/21] lidocaine-prilocaine 1 applicatio TP DAILY PRN PRN 03/10/18 [History Last Taken Unknown] cranberry 500 mg PO DAILY 07/26/20 [History Last Taken 03/21/21] famotidine 40 mg PO DAILY 07/26/20 [History Last Taken 03/21/21] alendronate 70 mg PO QWEEK 03/21/21 [History Last Taken Unknown] ascorbic acid (vitamin C) 1 g PO DAILY 03/21/21 [History Last Taken 03/21/21] cephalexin 250 mg PO QHS 03/21/21 [History Last Taken 03/20/21] methenamine hippurate 1 g PO BID 03/21/21 [History Last Taken 03/21/21] vibegron [Gemtesa] 75 mg PO DAILY 03/21/21 [History Last Taken 03/21/21] Allergy/AdvReac Type Severity Reaction Status Date / Time No Known Allergies Allergy Verified 03/21/21 13:44 Family History Father Diabetes Prostate CA Mother Arthritis Lupus Surgical History (Updated 07/26/20 @ 11:[address] Jorge Martin MD) History of bladder surgery Previous back surgery Social History (Updated 03/21/21 @ 16:[address] Alexa Watkins MD) household members: spouse Smoking Status: Former smoker how long ago did patient quit smoking: Quit > 20 years prior, smoked <1/4 ppd since teen. alcohol intake: never substance use type: does not use ROS ROS ED Constitutional Constitutional ED: Denies chills or fever(s) Eyes Eyes: Denies change in vision or diplopia ENT ENT ED: Denies rhinorrhea or sore throat Cardiovascular Cardiovascular: Denies chest pain or palpitations Respiratory/Chest Respiratory/Chest: Denies cough or dyspnea Gastrointestinal Gastrointestinal: Reports as per HPI and diarrhea; Denies abdominal pain, nausea or vomiting Genitourinary Genitourinary ED: Denies dysuria or hematuria Musculoskeletal Musculoskeletal: Denies back pain or neck pain Integumentary Denies abscess or rash Neurologic Neurologic: Reports as per HPI and disequilibrium; Denies dizziness, focal weakness, headache(s), paresthesias or weakness Psychiatric Psychiatric: Denies anxiety or suicidal thoughts EXAM Physical Exam Const Vital Signs: 03/21/21 13:42 03/21/21 15:35 03/21/21 15:39 Temperature 97.1 F L 97.6 F L Temperature Source Temporal Oral Pulse Rate 98 66 Respiratory Rate 18 16 Respiratory Effort Normal Non-Labored Blood Pressure 107/61 142/76 H Blood Pressure Mean 76 98 Pulse Ox 99 95 Oxygen Delivery Method Room Air Room Air Positive well nourished and well developed General Appearance ED: well developed and NAD HEENT Reports moist mucous membranes normocephalic and atraumatic Eyes PERRL and EOMs intact bilaterally EOM: nystagmus horizontal, with left lateral gaze and other (No vertical or rotatory nystagmus) Neck full ROM and supple Resp normal respiratory effort and clear to auscultation bilaterally Cardio regular rate, regular rhythm and no murmurs GI non-tender and non-distended Auscultation: normoactive bowel sounds Palpation: soft Back/Spine no CVA tenderness General Back: other FROM Extremity normal to inspection General Extremety ED: Negative for edema, pulses abnormal or tenderness General Extremity: Negative for edema or pulses abnormal Neuro oriented x3, CN's II-XII intact bilaterally and no sensory deficits noted Neuro Narrative: Normal [id number] and lgvu-uh-[id number] bilaterally Sensorium / Orientation: awake and alert Motor Exam: strength 5/5 throughout Skin no rashes or lesions noted and no wounds STROKE Vital Signs/Narrative: Vital Signs Temp Pulse Resp BP Pulse Ox 03/21/21 15:35 97.6 F L 66 16 142/76 H 95 03/21/21 13:42 97.1 F L 98 18 107/61 99 NIHSS Initial: 1a Level of Consciousness: 0 1b LOC Questions (Score 2 if aphasic/stupor): 0 1c LOC Commands (Only score 1st attempt): 0 2 Best Gaze (If aphasic, use reflexive mvmts.): 0 3 Visual: 0 4 Facial Palsy: 0 5 Motor Arm Right (UN = amputation/fusion): 0 5 Motor Arm Left: 0 6 Motor Leg Right: 0 6 Motor Leg Left: 0 7 Limb ataxia (Only + if out of proportion): 0 8 Sensory (Aphasia/stupor=0 or 1, coma=2): 0 9 Best Language: 0 10 Dysarthria (mute, coma=2, intubated=UN): 0 11 Extinction and Inattention (only scored if +): 0 Total Score: 0 MDM MDM MDM Narrative Medical decision making narrative: My concern in this patient is central etiology of vertigo. CT shows no changes compared with prior, lab work is unremarkable. Chest x-ray shows atelectasis versus infiltrate in the right upper lobe, I suspect this is atelectasis. She has no leukocytosis or symptoms of Covid although she does want to be tested, that is sent and pending. Plan will be for admission and further evaluation. Lab Data Attestation: I reviewed the patient's lab results. Labs: Laboratory Results - last 24 hr 03/21/21 03/21/21 03/21/21 14:30 14:30 14:30 WBC 6.7 RBC 3.96 L Hgb 11.9 L Hct 36.9 L MCV 93.2 MCH 30.1 MCHC 32.2 RDW Std Deviation 54.6 H RDW Coeff of Marya 16.3 H Plt Count 163 MPV 9.4 Immature Gran % (Auto) 0.400 Neut % (Auto) 78.6 H Lymph % (Auto) 10.9 L Merrick % (Auto) 8.3 Eos % (Auto) 1.5 Baso % (Auto) 0.3 Absolute Neuts (auto) 5.3 Absolute Lymphs (auto) 0.73 L Nucleated RBC % 0 Sodium 133 L Potassium 3.6 Chloride 99 Carbon Dioxide 24.0 Anion Gap 10 BUN 24 H Creatinine 0.58 Estim Creat Clear Calc 37.24 Est GFR (MDRD) Af Amer 131 Est GFR (MDRD) Non-Af 108 BUN/Creatinine Ratio 41.5 H Glucose 93 Calcium 8.8 Magnesium 2.0 Troponin I High Sens 6.0 Radiography Diagnostic Testing: Radiology Impression Brain CT 03/21/21 14:12 IMPRESSION: Chronic involutional changes of the brain. N.B. : The above Results were Read Back by Ramiro Gilman MD to Asad Gibbons and understanding confirmed on 03/21/2021 15:07:40 (ET). Electronically Signed: Ramiro Gilman MD at 15:09 EDT , Service support , ADDENDUM: 03/21/21 1516 IMPRESSION: Chronic involutional changes of the brain. N.B. : The above Results were Read Back by Ramiro Gilman MD to Asad Gibbons and understanding confirmed on 03/21/2021 15:07:40 (ET). Electronically Signed: Ramiro Gilman MD at 15:09 EDT , Service support , Chest X-Ray 03/21/21 14:55 IMPRESSION: Hyperinflation. Increased markings in the right upper lobe suggestive of atelectasis and/or early infiltrate. Electronically Signed: Ramiro Gilman MD at 15:10 EDT , Service support , EKG Initial EKG: Attestation: I personally reviewed and interpreted this EKG as follows: Interpretation: Sinus Rhythm and No Acute Injury Pattern Stroke Documentation Questions Stroke Team Activated: No (Patient presents outside of 24 hours) Was Patient considered for Endovascular Intervention?: No (outside of 24 hrs window) IV Alteplase (t-PA) Administered: No Discharge Plan Dx/Rx/DC Orders Clinical Impression: Vertigo, central Disposition Disposition: Acute Care Hospital [facility] Discharge Date/Time: 03/21/21 16:19
[2021-03-21 14:41] LABS: Absolute Lymphocyte Count 0.73 X10^3/uL (0.83-4.51); Absolute Neutrophil Count 5.3 X10^3/uL (2.0-7.7); Basophil# 0.02 X10^3/uL; Basophil% 0.3 % (0-1); Eosinophils% 1.5 % (0-5); Hematocrit 36.9 % (37-47); Hemoglobin 11.9 g/dL (12.0-15.0); Lymphocyte # 0.73 X10^3/ul (0.83-4.51); Lymphocyte % 10.9 % (19-41); Mean Corp Hgb Conc 32.2 g/dL (32-36); Mean Corpuscular Hgb 30.1 pg (27.0-32.0); Mean Corpuscular Volume 93.2 fL (81-99); Mean Platelet Vol. 9.4 fl (6.2-12.0); Monocyte# 0.56 X10^3/uL; Monocyte% 8.3 % (0-10); NRBC Flagged by Analyzer 0 % (0-5); Neutrophil # 5.27 X10^3/uL (2.7-7.7); Neutrophil % 78.6 % (47-70); Platelet Count 163 K/mm3 (150-450); RBC Distribution Width CV 16.3 % (11.6-14.6); RBC Distribution Width SD 54.6 fl (35.1-43.9); Red Blood Count 3.96 M/mm3 (4.2-5.4); White Blood Count 6.7 K/mm3 (4.4-11.0)
--- NOTE | 2021-03-21 14:55 | RAD_ITS ---
STUDY: X-RAY CHEST REASON FOR EXAM: Female, 75 years old. Neuro deficit, acute, stroke suspected TECHNIQUE: Single AP portable view of the chest. COMPARISON: Comparison is made with prior study dated 06/19/2020. FINDINGS: A right-sided Port-A-Cath is seen with the tip in the right atrium. Hyperinflation. Mild increased markings in the right upper lobe suggestive of either atelectasis and/or early infiltrate. There is no demonstrated pleural abnormality. Normal size heart. Normal mediastinum and inna. Normal visualized pulmonary arteries. There is atherosclerotic calcification of the aortic arch with tortuosity. Normal visualized thoracic spine. Normal visualized ribs, clavicles, and shoulders. Hiatal hernia. RAD/Chest 1 View IMPRESSION: Hyperinflation. Increased markings in the right upper lobe suggestive of atelectasis and/or early infiltrate. Electronically Signed: Ramiro Gilman MD at 15:10 EDT , Service support ,
[2021-03-21 14:56] LABS: Anion Gap 10 (5-15); BUN 24 mg/dL (7-18); BUN/Creat Ratio 41.5 RATIO (10-20); Calcium,Total 8.8 mg/dL (8.5-10.1); Chloride 99 mmol/L (98-107); Creatinine, Serum 0.58 mg/dL (0.55-1.02); EST Glomerular Filtration Rate 108 mL/min (>60); Est Glom Filt Rate - Afr Amer 131 mL/min (>60); Estimated Creatinine Clearance 37.24 ml/min; Glucose 93 mg/dL (74-106); Potassium 3.6 mmol/L (3.5-5.1); Sodium Level 133 mmol/L (136-145)
--- NOTE | 2021-03-21 15:33 | PCM.HP.STD ---
HPI - General General Date of Admission: 03/21/21 Date of Service: 03/21/21 Chief Complaint: Debility, imbalance/disequilibrium, diarrhea HPI Narrative The patient is a 75 y/o F w/ PMHx: Hx Breast CA, RA, HLD, OA, Anxiety and Depression who presents to the [facility] ED on 03/21/21 with history of day prior suddenly losing her balance describing her legs having given out and falling in her kitchen, fortunately caught by her with no injury with since then difficulty walking with sensation of feeling off balance with only other noted ongoing symptoms including loose stools with 2-day prior and one on day of presentation with no associated fevers, chills, nausea, emesis, abdominal pain, chest pain or dyspnea. Patient did discuss this presentation with her ED physician who recommended that she be Covid tested and evaluated. Patient additionally notes poor appetite over the last 1 to 2 weeks as well as body aches. Patient has been Covid vaccinated and suspected that she was ill with Covid in August of this year. Work-up in the ED included T 97.1 temporally, heart rate 98, BP 107/61, respiratory rate 18, 99% on room air, CBC with a BC 6.7, hemoglobin 11.9, platelet 163 with lymphopenia, BMP with sodium 133, BUN/creatinine 24/0.58 otherwise not marked appearing, high-sensitivity troponin 6.0, chest x-ray with hyperinflation with increased markings right upper lobe suggestive of atelectasis and/or early infiltrate, CT head with chronic involutional changes with no acute intracranial findings, EKG with SR without acute evidence of ischemia. In the ED NIHSS 0 but noted abnormal horiztonal nystagmus. UA requested. COVID testing pending. [facility] Medical History (Updated 03/21/21 @ 15:[address] Asad Gibbons MD) Arthritis Breast cancer Depression Hyperlipidemia Interstitial cystitis med port placement Neoplasm of unspecified behavior of bladder Rheumatoid arthritis pain Home Medications cholecalciferol (vitamin D3) [Vitamin D3] 1,000 unit PO MOFR 09/01/15 [History Last Taken 03/19/21] citalopram 20 mg PO DAILY 09/01/15 [History Last Taken 03/21/21] folic acid 1 mg PO DAILY@0800 09/01/15 [History Last Taken 03/21/21] multivitamin with folic acid [Thera] 1 tab PO DAILY 09/01/15 [History Last Taken 03/21/21] simvastatin 20 mg PO QHS 09/01/15 [History Last Taken 03/20/21] Enbrel 25 mg SQ WESA 01/21/17 [History Last Taken 03/17/21] methotrexate sodium 6 tab PO WE 01/21/17 [History Last Taken 03/21/21] Systane Gel 1 drp LEFT EYE QHS 03/10/18 [History Last Taken 03/09/18] aspirin 81 mg PO DAILY 03/10/18 [History Last Taken 03/21/21] lidocaine-prilocaine 1 applicatio TP DAILY PRN PRN 03/10/18 [History Last Taken Unknown] cranberry 500 mg PO DAILY 07/26/20 [History Last Taken 03/21/21] famotidine 40 mg PO DAILY 07/26/20 [History Last Taken 03/21/21] alendronate 70 mg PO QWEEK 03/21/21 [History Last Taken Unknown] ascorbic acid (vitamin C) 1 g PO DAILY 03/21/21 [History Last Taken 03/21/21] cephalexin 250 mg PO QHS 03/21/21 [History Last Taken 03/20/21] methenamine hippurate 1 g PO BID 03/21/21 [History Last Taken 03/21/21] vibegron [Gemtesa] 75 mg PO DAILY 03/21/21 [History Last Taken 03/21/21] Allergy/AdvReac Type Severity Reaction Status Date / Time No Known Allergies Allergy Verified 03/21/21 13:44 Family History Father Diabetes Prostate CA Mother Arthritis Lupus Surgical History (Updated 07/26/20 @ 11:[address] Jorge Martin MD) History of bladder surgery Previous back surgery Social History (Updated 03/21/21 @ 16:[address] Alexa Watkins MD) household members: spouse Smoking Status: Former smoker how long ago did patient quit smoking: Quit > 20 years prior, smoked <1/4 ppd since teen. alcohol intake: never substance use type: does not use ROS ROS Narrative Admission Review of Systems: CONSTITUTIONAL: No weight loss, fever, chills, + weakness or fatigue. HEENT: Eyes: No visual loss, blurred vision, double vision or yellow sclerae. Ears, Nose, Throat: No hearing loss, sneezing, congestion, runny nose or sore throat. SKIN: No rash or itching, lesions, wounds. CARDIOVASCULAR: No chest pain, chest pressure or chest discomfort, palpitations, edema, orthopnea, syncopal events. RESPIRATORY: No shortness of breath, cough or sputum, wheezing, hemoptysis. GASTROINTESTINAL: + anorexia, diarrhea, No nausea, vomiting, abdominal pain, melena, BRBPR. GENITOURINARY: No dysuria, frequency, urgency or retention. NEUROLOGICAL: + Disequilibrium. No headache, dizziness, syncope, paralysis, ataxia, numbness or tingling in the extremities, focal weakness, change in bowel or bladder control, seizure. MUSCULOSKELETAL: + muscle, back pain, joint pain or stiffness. HEMATOLOGIC: + anemia, bleeding or bruising. LYMPHATICS: No enlarged nodes. No history of splenectomy. PSYCHIATRIC: + history of depression or anxiety. ENDOCRINOLOGIC: No reports of sweating, cold or heat intolerance. No polyuria or polydipsia. ALLERGIES: No history of asthma, hives, eczema or rhinitis. Vital Signs Vital Signs Vital Signs: 03/21/21 13:42 Temperature 97.1 F L Temperature Source Temporal Pulse Rate 98 Respiratory Rate 18 Blood Pressure 107/61 Blood Pressure Mean 76 Pulse Ox 99 Oxygen Delivery Method Room Air Weight Weight: 117 lb Body Mass Index (BMI) 22.1 Physical Exam Narrative Physical Examination: General: Awake, alert, oriented x 3 and cooperative, seated upright in the ED bed in no apparent distress. Skin: Normal color, normal turgor, no icterus, no cyanosis except for abrasion to the face. HEENT: AT/NC, EOMI, PERRLA, mildly dry MM, no carotid bruits or JVD noted. Lungs: Mildly diminished, greater ASIS, appropriate effort, no rales, ronchi or wheezing. Heart: Regular rate and rhythm; no gallop, rub audible. Abdomen: Soft, NTTP, ND, mildly hyperactive BS, no HSM. Extremities: No cyanosis, clubbing, or edema. Neurological: Patient awake, alert, oriented as noted, cognitive function intact; pupils equally reactive to light and accommodation, cranial nerves II-XII grossly normal, moving all 4 extremities, no focal deficits, strength moderately global decreased secondary to acute presentation, unable to reproduce nystagmus witnessed by ED physician. Psychiatric: Affect appears fatigued otherwise normal, no acute evidence of depressive or anxiety feelings. Results Lab / Micro Data Result Diagrams: 03/21/21 14:30 03/21/21 14:30 Labs: Laboratory Results - last 24 hr 03/21/21 14:30: WBC 6.7, RBC 3.96 L, Hgb 11.9 L, Hct 36.9 L, MCV 93.2, MCH 30.1, MCHC 32.2, RDW Std Deviation 54.6 H, RDW Coeff of Marya 16.3 H, Plt Count 163, MPV 9.4, Immature Gran % (Auto) 0.400, Neut % (Auto) 78.6 H, Lymph % (Auto) 10.9 L, [place] % (Auto) 8.3, Eos % (Auto) 1.5, Baso % (Auto) 0.3, Absolute Neuts (auto) 5.3, Absolute Lymphs (auto) 0.73 L, Nucleated RBC % 0 03/21/21 14:30: Sodium 133 L, Potassium 3.6, Chloride 99, Carbon Dioxide 24.0, Anion Gap 10, BUN 24 H, Creatinine 0.58, Estim Creat Clear Calc 37.24, Est GFR (MDRD) Af Amer 131, Est GFR (MDRD) Non-Af 108, BUN/Creatinine Ratio 41.5 H, Glucose 93, Calcium 8.8, Troponin I High Sens 6.[address] 03/21/21 14:12 IMPRESSION: Chronic involutional changes of the brain. N.B. : The above Results were Read Back by Ramiro Gilman MD to Asad Gibbons and understanding confirmed on 03/21/2021 15:07:40 (ET). Electronically Signed: Ramiro Gilman MD at 15:09 EDT , Service support , ADDENDUM: 03/21/21 1516 IMPRESSION: Chronic involutional changes of the brain. N.B. : The above Results were Read Back by Ramiro Gilman MD to Asad Gibbons and understanding confirmed on 03/21/2021 15:07:40 (ET). Electronically Signed: Ramiro Gilman MD at 15:09 EDT , Service support , Chest X-Ray 03/21/21 14:55 IMPRESSION: Hyperinflation. Increased markings in the right upper lobe suggestive of atelectasis and/or early infiltrate. Electronically Signed: Ramiro Gilman MD at 15:10 EDT , Service support , Assessment & Plan Assessment/Plan (1) Vertigo, central: PLAN: The patient is a 75 y/o F w/ PMHx: Hx Breast CA, RA, HLD, OA, Anxiety and Depression who presents to the [facility] ED on 03/21/21 with history of day prior suddenly losing her balance describing her legs having given out and falling in her kitchen, fortunately caught by her with no injury with since then difficulty walking with sensation of feeling off balance with only other noted ongoing symptoms including loose stools with 2-day prior and one on day of presentation with no associated fevers, chills, nausea, emesis, abdominal pain, chest pain or dyspnea. 1. Debility, imbalance/disequilibrium, unclear specific etiology but concerning for possible acute CVA: Will admit to PCU, will obtain MRI Brain, MRA Head and carotid ultrasound, ECHO, PT/OT/Speech/Nutrition evaluation per protocol. Will allow permissive HTN, maintain on asa, continue home statin w/ AM FLP, fall precautions. Magnesium, TSH, FLP, hemoglobin A1c requested. Given also history of occasional diarrhea will obtain stools samples to be cautious and obtain COVID testing. 2. Hyperlipidemia: Continue home statin regimen. AM FLP. 3. Anxiety and depression: We will continue patient home citalopram regimen. 4. Rheumatoid arthritis: We will continue patient home Enbrel and methotrexate regimen with supplemental folic acid. 5. History of breast cancer: Unclear specific type, in remission, continue outpatient follow-up with her oncologist. 6. DVT prophylaxis: SCDs, Lovenox. 7. CODE status: Patient HCPOA is her who is present and living will is currently in place. Discussed CODE status at length including difference between FULL code, DNR-CCA and DNR-CC status. Following discussions about the differences in these status, requested Full Code status. Advanced Care Planning Face to Face Time: 16 minutes. Charges/Coding Visit Charges OBSV E&M: 86799 Initial observation care L3 Procedures Hospitalists Procedures: [id number] Advncd Care Plan 30 Min
[2021-03-21] MEDS: 0.9% Normal Saline 1,000 ML 100 ML IV ×2 (15:55→16:59)
--- NOTE | 2021-03-21 16:32 | MRI_ITS ---
STUDY: MRI BRAIN WITHOUT CONTRAST REASON FOR EXAM: Female, 75 years old. CVA weakness, unsteady gait TECHNIQUE: Standardized multiplanar fat and water weighted pulse sequences were obtained. COMPARISON: CT. FINDINGS: There is mild cerebral atrophy with widening of the extra-axial spaces and ventricular dilatation. There are multiple white matter hyperintensities, distributed throughout the deep white matter tracts of the cerebral hemispheres, consistent with moderate chronic white matter ischemic changes. There is 0.7 cm dilated perivascular space or cyst of the right frontal lobe. There is no evidence for recent intracranial ischemia or other cause of cytotoxic edema on diffusion weighted imaging (DWI). Normal T2* images of the brain without demonstrated susceptibility artifact. There is no demonstrated hemosiderin stain. Normal bilateral basal ganglia. Normal thalami. There is no extra-axial fluid accumulation. Normal flow voids within the major intracranial circulation suggesting patency by spin echo criteria. Normal sella turcica, pituitary gland, infundibular stalk, optic chiasm and hypothalamus. Normal tectal plate and pineal gland. There are chronic white matter ischemic changes of the grayson. The midbrain and medulla are otherwise normal. Normal cerebellum. Normal basal cisterns. Normal bilateral temporal bones. Normal bilateral internal auditory canals. No demonstrated orbital abnormality, within the constraints of a routine brain study. Normal visualized paranasal sinuses. Normal calvarium and skull base. Normal visualized soft tissue structures. Normal visualized upper cervical spine. MRI/Brain without Contrast IMPRESSION: Involutional changes of the brain, as described above. Electronically Signed: Asad Pfeiffer MD at 23:10 EDT , Service support ,
--- NOTE | 2021-03-21 16:32 | MRI_ITS ---
STUDY: MRA OF THE HEAD WITHOUT CONTRAST REASON FOR EXAM: Female, 75 years old. CVA, weakness, unsteady gait TECHNIQUE: 3-D akso-lx-sqbnae (TOF) imaging was performed with MIPs. The study was performed unenhanced. COMPARISON: None. FINDINGS: Normal bilateral petrous carotid arteries. Normal right cavernous carotid artery with a normal supraclinoid bifurcation. Normal left cavernous carotid artery with a normal supraclinoid bifurcation. Normal right A1 segments of the anterior cerebral artery. Normal left A1 segments of the anterior cerebral artery. Normal intact anterior communicating artery (ACOM). Normal bilateral A2 segments of the anterior cerebral arteries. Normal right M1 and M2 segments of the middle cerebral arteries, with a normal M1 bifurcation. Normal left M1 and M2 segments of the middle cerebral arteries, with a normal M1 bifurcation. There is non-visualization of the right posterior communicating artery (PCOM). Normal left posterior communicating artery (PCOM). Normal bilateral vertebral arteries. Normal basilar artery with a normal basilar bifurcation. The visualized bilateral superior cerebellar (SCA) arteries are normal. Normal bilateral P1, P2 and visualized P3 segments of the posterior cerebral arteries. There is no demonstrated aneurysm of the [place] of [place]. There is no major vessel occlusion or hemodynamically significant stenosis. There is no demonstrated abnormality of the visualized brain. MRI/MRA Head ONLY without Contrast IMPRESSION: Normal MRA of the head. No aneurysm or large vessel occlusion. Electronically Signed: Asad Pfeiffer MD at 23:13 EDT , Service support ,
[2021-03-21] MEDS: Atorvastatin Calcium 10 MG Tablet PO (21:25)
[2021-03-21] MEDS: Methenamine Hippurate 1 GM Tablet PO (21:25)
[2021-03-21] MEDS: Cephalexin 250 MG Capsule PO (21:25)
[2021-03-22] VITALS (9 sets, daily range): BP systolic 105–130; BP diastolic 70–88; PULSE 81–106; RESP 16–18; TEMP 36.7–37.1; O2SAT 96–98; BMI 23.3
[2021-03-22] MEDS: 0.9% Normal Saline 1,000 ML 100 ML IV ×2 (05:10→13:55)
[2021-03-22 07:20] LABS: Absolute Lymphocyte Count 0.66 X10^3/uL (0.83-4.51); Absolute Neutrophil Count 3.3 X10^3/uL (2.0-7.7); Basophil# 0.01 X10^3/uL; Basophil% 0.2 % (0-1); Eosinophil# 0.08 X10^3/uL; Eosinophils% 1.8 % (0-5); Hematocrit 34.9 % (37-47); Hemoglobin 11.2 g/dL (12.0-15.0); Lymphocyte # 0.66 X10^3/ul (0.83-4.51); Lymphocyte % 14.8 % (19-41); Mean Corp Hgb Conc 32.1 g/dL (32-36); Mean Corpuscular Hgb 30.1 pg (27.0-32.0); Mean Corpuscular Volume 93.8 fL (81-99); Mean Platelet Vol. 9.8 fl (6.2-12.0); Monocyte# 0.37 X10^3/uL; Monocyte% 8.3 % (0-10); NRBC Flagged by Analyzer 0 % (0-5); Neutrophil # 3.32 X10^3/uL (2.7-7.7); Neutrophil % 74.5 % (47-70); Platelet Count 136 K/mm3 (150-450); RBC Distribution Width CV 16.1 % (11.6-14.6); Red Blood Count 3.72 M/mm3 (4.2-5.4); White Blood Count 4.5 K/mm3 (4.4-11.0)
[2021-03-22] MEDS: Multivitamins,Therapeutic Tablet 1 TABLET PO (07:45)
[2021-03-22] MEDS: Aspirin E.C. 81 MG Tablet PO (07:45)
[2021-03-22] MEDS: Folic Acid 1 MG Tablet PO (07:45)
[2021-03-22 08:02] LABS: ALB/GLOB Ratio 0.7 RATIO (0.9-2.4); AST(SGOT) 17 U/L (15-37); Alanine Aminotransfer ALT/SGPT 23 U/L (13-56); Albumin, Serum 2.4 g/dL (3.2-5.0); Alkaline Phosphatase 57 U/L (45-117); Anion Gap 7 (5-15); BUN 19 mg/dL (7-18); BUN/Creat Ratio 28.7 RATIO (10-20); Chloride 104 mmol/L (98-107); Cholesterol 110 mg/dL (200); Creatinine, Serum 0.66 mg/dL (0.55-1.02); EST Glomerular Filtration Rate 93 mL/min (>60); Est Glom Filt Rate - Afr Amer 112 mL/min (>60); Estimated Creatinine Clearance 37.24 ml/min; Globulin 3.5 g/dL (2.2-4.2); Glucose 101 mg/dL (74-106); High Density Lipoprotein 48 mg/dL; Protein, Total 5.9 g/dL (6.4-8.2); Sodium Level 137 mmol/L (136-145); Thyroid Stim Hormone (TSH) 2.08 uIU/mL (0.358-3.74); Triglycerides 92 mg/dL; Very Low Density Lipoprotein 18 mg/dL (5-40)
[2021-03-22 08:43] LABS: Hemoglobin A1c 5.6 % (3.8-5.6)
[2021-03-22] MEDS: Enoxaparin 40 MG/0.4 ML Syringe SC (08:47)
[2021-03-22] MEDS: Citalopram 20 MG Tablet PO (08:48)
[2021-03-22] MEDS: Methenamine Hippurate 1 GM Tablet PO (08:48)
[2021-03-22] MEDS: Famotidine 20 MG Tablet PO (08:48)
--- NOTE | 2021-03-22 08:52 | CT_ITS ---
STUDY: CTA HEAD AND NECK WITH CONTRAST REASON FOR EXAM: Female, 75 years old. cva RADIATION DOSAGE (If Supplied By Facility): CTDIvol = ( 14.03 ) mGy, DLP = ( 538.19 ) mGycm TECHNIQUE: CT angiography was performed with a multi-detector CT scanner. Data acquisition was obtained from the skull base through the vertex following intravenous administration of IV 100mL Isovue-370. MIP images were reconstructed from the axial data set. Post-processing of the angiographic images was performed, with multiplanar reformation and 3D reconstruction. Individualized dose optimization techniques were used for this CT. COMPARISON: Comparison is made with prior examination dated 03/21/2021 as well as prior MRI of the brain dated 03/21/2021. FINDINGS: Normal bilateral petrous carotid arteries. There is calcified plaque formation of the right cavernous carotid artery, without a cross-sectional luminal stenosis. There is calcified plaque formation of the left cavernous carotid artery, without a cross-sectional luminal stenosis. Normal right A1 segments of the anterior cerebral artery. Normal left A1 segments of the anterior cerebral artery. Normal intact anterior communicating artery (ACOM). Normal bilateral A2 segments of the anterior cerebral arteries. Normal right M1 and M2 segments of the middle cerebral arteries, with a normal M1 bifurcation. Normal left M1 and M2 segments of the middle cerebral arteries, with a normal M1 bifurcation. Normal right posterior communicating artery (PCOM). Normal left posterior communicating artery (PCOM). Normal bilateral vertebral arteries. Normal basilar artery with a normal basilar bifurcation. The visualized bilateral superior cerebellar (SCA) arteries are normal. Normal bilateral P1, P2 and visualized P3 segments of the posterior cerebral arteries. There is no demonstrated aneurysm of the [place] of [place]. AORTIC ARCH: There is atherosclerotic calcific plaque formation of the aortic arch and great vessels arising from the aortic arch, without a hemodynamically significant stenosis. There is a normal origin of the brachiocephalic, left common carotid, and left subclavian arteries. RIGHT CAROTID ARTERIES: Normal right common carotid artery (CCA). Normal right common carotid bulb. There is mild atherosclerotic plaque formation of the origin of the right internal carotid artery with less than 50% cross sectional diameter stenosis. Normal visualized cervical portion of the right internal carotid artery. Normal origin of the right external carotid artery (ECA). LEFT CAROTID ARTERIES: There is atherosclerotic plaque formation of the common carotid artery, but without a hemodynamically significant stenosis. Normal left common carotid bulb. There is moderate atherosclerotic plaque formation of the origin of the left internal carotid artery with an estimated stenosis of 50-69% stenosis. Normal visualized cervical portion of the left internal carotid artery. Normal origin of the left external carotid artery (ECA). VERTEBRAL ARTERIES: Normal bilateral vertebral arteries. There is a 1.2 cm x 0.9 cm hypodense nodule in the upper pole of the left lobe of the thyroid with peripheral calcification. There is also evidence of a 0.7 cm hypodense nodule in the upper pole of the right lobe of the thyroid. CT/CTA Head AND Neck W/ Contrast IMPRESSION: Atherosclerotic calcific plaques at the origin of the right internal carotid artery causing less than 50% luminal stenosis. Atherosclerotic calcific plaques at the origin of the left internal carotid artery causing between 50 and 69% stenosis. Electronically Signed: Ramiro Gilman MD at 10:15 EDT , Service support ,
--- NOTE | 2021-03-22 11:25 | PCM.DC ---
Discharge Instructions Diet Discharge Diet: No restrictions Activity Discharge Activity: Return to Normal Activity Dressing / Incision Call your doctor if you observe: Shortness of breath, Dizziness, Fainting spells and Chest pain Follow Up Care Test Results: Test results from this visit will be discussed in further detail at your follow-up appointment, if applicable. Discharge Plan Admission Admit Date/Time: 03/21/21 15:41 Primary Reason for Your Visit: Imbalance, near syncope Attending Provider: Jose Ham Primary Care Provider: Annie Becerril Discharge Orders/Prescriptions Prescriptions: New Ensure Enlive 0.08 gram-1.5 kcal/mL Liquid 120 ml PO 4X/DAY Qty: 0 RF: 0 Continued citalopram 20 MG tablet 20 mg PO DAILY RF: 0 simvastatin 20 MG tablet 20 mg PO QHS RF: 0 folic acid 1 MG tablet 1 mg PO DAILY@0800 RF: 0 cholecalciferol (vitamin D3) [Vitamin D3] 1,000 UNIT tablet 1,000 unit PO MOFR RF: 0 multivitamin with folic acid [Thera] 1 TABLET tablet 1 tab PO DAILY RF: 0 methotrexate sodium 2.5 MG tablet 6 tab PO WE RF: 0 Enbrel 50 MG/ML syringe 25 mg SQ WESA RF: 0 famotidine 20 MG tablet 40 mg PO DAILY RF: 0 cranberry 500 MG capsule 500 mg PO DAILY RF: 0 aspirin 81 MG tablet,delayed release (DR/EC) 81 mg PO DAILY RF: 0 lidocaine-prilocaine 30 GM cream 1 applicatio TP DAILY PRN PRN (Reason: Not Specified) RF: 0 Systane Gel 10 GM gel 1 drp Left Eye QHS RF: 0 ascorbic acid (vitamin C) 1,000 mg Tablet 1 g PO DAILY RF: 0 cephalexin 250 mg capsule 250 mg PO QHS RF: 0 alendronate 70 mg tablet 70 mg PO QWEEK RF: 0 methenamine hippurate 1 gram tablet 1 g PO BID RF: 0 Gemtesa 75 mg Tablet 75 mg PO DAILY RF: 0 Referrals / Follow Up: Oncology, Primary [Other] - In 1 Week Annie Becerril DO [Primary Care Provider] - In 1 Week Disposition Disposition (needs filled in before D/C Order can be placed): Home, Self Care
--- NOTE | 2021-03-22 12:39 | CASEMGMT ---
Therapy states no need for any further therapy. SStaten RN CM
--- NOTE | 2021-03-22 14:46 | DS.PCM_ITS ---
Documented by User: Ying Hernandez NP, HEALTH AND FITNESS PROFESSOR-C 03/22/21 14:53 Providers Date of Admission: 03/21/21 Date of Discharge: 03/22/21 Primary Care Physician: Dr. Annie Becerril DO Reason For Visit: CVA Diagnosis Discharge Diagnosis (1) Vertigo, central: Status: Acute Code(s): H81.4 - Vertigo of central origin Medications at Discharge Home Medications cholecalciferol (vitamin D3) [Vitamin D3] 1,000 unit PO MOFR 09/01/15 citalopram 20 mg PO DAILY 09/01/15 folic acid 1 mg PO DAILY@0800 09/01/15 multivitamin with folic acid [Thera] 1 tab PO DAILY 09/01/15 simvastatin 20 mg PO QHS 09/01/15 Enbrel 25 mg SQ WESA 01/21/17 methotrexate sodium 6 tab PO WE 01/21/17 Systane Gel 1 drp LEFT EYE QHS 03/10/18 aspirin 81 mg PO DAILY 03/10/18 lidocaine-prilocaine 1 applicatio TP DAILY PRN PRN 03/10/18 cranberry 500 mg PO DAILY 07/26/20 famotidine 40 mg PO DAILY 07/26/20 Gemtesa 75 mg PO DAILY 03/21/21 alendronate 70 mg PO QWEEK 03/21/21 ascorbic acid (vitamin C) 1 g PO DAILY 03/21/21 cephalexin 250 mg PO QHS 03/21/21 methenamine hippurate 1 g PO BID 03/21/21 food supplemt, lactose-reduced [Ensure Enlive] 120 ml PO 4X/DAY #0 ml 03/22/21 Hospital Course Operations None Procedures 2-D Echocardiogram Summary of Care Provided Minutes Spent on Discharge: 35 Hospital Course: Patient is a 75-year-old female admitted 03/21/2021 due to imbalance, near syncope. 1. Imbalance, near syncope-CVA ruled out. Patient denies speech/vision changes, focal deficits. States her legs gave out on her and she has experienced generalized weakness over the past week or more. MRI of brain negative. MRA of head normal. CTA of head and neck with less than 50% right internal carotid stenosis and 50 to 69% left internal carotid stenosis. Recommend outpatient referral to vascular surgery for left carotid monitoring. Orthostatic vitals negative. PT evaluated patient without additional recommend ations. Telemetry without arrhythmia. Echocardiogram completed, report pending and will be reviewed prior to discharge. If patient has recurrent symptoms, may consider 30-day event monitor. Also recommend follow-up with oncology given cancer history and recent significant weight loss. Follow-up with PCP in 1 week. 2. Diarrhea-no further episode during admission. Suspect viral gastroenterit is. 3. Severe protein calorie malnutrition-patient reports 14 pound weight loss over the past 2 weeks. Reports poor appetite and poor oral intake. States she drinks 1 bottle of water per day. Encouraged increased oral intake. Recommend continued nutritional supplementation at discharge. 4. History of breast cancer-given recent weight loss, recommend follow-up with oncology at discharge for cancer surveillance. 5. Hyperlipidemia-continue statin. 6. Anxiety/depression-on citalopram. 7. Rheumatoid arthritis-on Enbrel, methotrexate. Patient seen and examined prior to discharge. Physical assessment as noted below. Patient is stable for discharge with follow up recommendations as noted above. This patient was seen by PILAR Bianchi under the supervision of Dr. Ham. Physical Exam Const alert, oriented x3 and no apparent distress Orientation / Consciousness: awake, oriented to person, oriented to place and oriented to time Nutritional Appearance: cachectic HEENT normocephalic and moist oral mucous membranes Eyes PERRL, EOMs intact bilaterally and conjunctivae normal Neck no lymphadenopathy Resp normal respiratory effort and clear to auscultation bilaterally Cardio regular rate, regular rhythm and no murmurs Peripheral Pulses: pulses 2+ throughout GI normal to inspection, nondistended, normoactive bowel sounds, non-tender and non-distended Extremity normal to inspection Skin no rashes or lesions noted Lesions: no lesions Rashes: no rashes Trauma: no lacerations or abrasions Neuro CN's II-XII intact bilaterally, no focal motor deficits, no sensory deficits noted and deep tendon reflexes 2+ bilaterally Psych mental status grossly normal and affect normal Medical Records Data Medical Nutrition Assessment Dietitian: Nutrition Therapy Diagnosis Start: 03/22/21 11:38 Freq: Status: Active Protocol: Document 03/22/21 11:51 AG (Rec: 03/22/21 11:51 AG [id number]) Nutrition Malnutrition Evidence of Malnutrition Exists Yes Malnutrition (severe): Acute Illness/Injury Evidenced By Suboptimal Energy Intake ( Severe),Weight Loss (Severe) Clinical Problem Acute Disease or Injury Related Malnutrition Etiology severe, acute malnutrition r/t inadequate energy intake during acute illness Signs/Symptoms as evidenced by estimated PO intake meeting <50% of estimated nutritional needs x 2 weeks, 11.3#/8.3% unintentional wt loss x 2 weeks Status Active Problem Recommendation Dietitian Recommendations/Changes regular diet given acute malnutrition, continue ensure enlive 120mL 4x/day Weight / BMI Weight Weight: 126 lb 12.253 oz Body Mass Index (BMI) 23.3 ABG / Lab / Microbiology Data Result Diagrams: 03/22/21 05:50 03/22/21 05:50 Laboratory: Laboratory Results - last 24 hr 03/21/21 14:30: Sodium 133 L, Potassium 3.6, Chloride 99, Carbon Dioxide 24.0, Anion Gap 10, BUN 24 H, Creatinine 0.58, Estim Creat Clear Calc 37.24, Est GFR (MDRD) Af Amer 131, Est GFR (MDRD) Non-Af 108, BUN/Creatinine Ratio 41.5 H, Glucose 93, Calcium 8.8, Troponin I High Sens 6.0 03/21/21 14:30: Magnesium 2.0 03/22/21 05:50: WBC 4.5, RBC 3.72 L, Hgb 11.2 L, Hct 34.9 L, MCV 93.8, MCH 30.1, MCHC 32.1, RDW Std Deviation 55.0 H, RDW Coeff of Marya 16.1 H, Plt Count 136 L, MPV 9.8, Immature Gran % (Auto) 0.400, Neut % (Auto) 74.5 H, Lymph % (Auto) 14.8 L, [place] % (Auto) 8.3, Eos % (Auto) 1.8, Baso % (Auto) 0.2, Absolute Neuts (auto) 3.3, Absolute Lymphs (auto) 0.66 L, Nucleated RBC % 0 03/22/21 05:50: Sodium 137, Potassium 4.0, Chloride 104, Carbon Dioxide 26.0, Anion Gap 7, BUN 19 H, Creatinine 0.66, Estim Creat Clear Calc 37.24, Est GFR (MDRD) Af Amer 112, Est GFR (MDRD) Non-Af 93, BUN/Creatinine Ratio 28.7 H, Glucose 101, Calcium 8.0 L, Total Bilirubin 0.40, AST 17, ALT 23, Alkaline Phosphatase 57, Total Protein 5.9 L, Albumin 2.4 L, Globulin 3.5, Albumin/Globulin Ratio 0.7 L, Triglycerides 92, Cholesterol 110, LDL Cholesterol 44, VLDL Cholesterol 18, HDL Cholesterol 48, TSH 2.08 03/22/21 05:50: Hemoglobin A1c 5.6 Microbiology: Microbiology 03/21/21 15:53 Mucosa - Nose SARS-CoV-2 Antigen (Rapid) - Final Radiography Diagnostic Testing: Radiology Impression Brain CT 03/21/21 14:12 IMPRESSION: Chronic involutional changes of the brain. N.B. : The above Results were Read Back by Ramiro Gilman MD to Asad Gibbons and understanding confirmed on 03/21/2021 15:07:40 (ET). Electronically Signed: Ramiro Gilman MD at 15:09 EDT , Service support , ADDENDUM: 03/21/21 1516 IMPRESSION: Chronic involutional changes of the brain. N.B. : The above Results were Read Back by Ramiro Gilman MD to Asad Gibbons and understanding confirmed on 03/21/2021 15:07:40 (ET). Electronically Signed: Ramiro Gilman MD at 15:09 EDT , Service support , Chest X-Ray 03/21/21 14:55 IMPRESSION: Hyperinflation. Increased markings in the right upper lobe suggestive of atelectasis and/or early infiltrate. Electronically Signed: Ramiro Gilman MD at 15:10 EDT , Service support , Brain MRI 03/21/21 16:32 IMPRESSION: Involutional changes of the brain, as described above. Electronically Signed: Asad Pfeiffer MD at 23:10 EDT , Service support , Head MRA 03/21/21 16:32 IMPRESSION: Normal MRA of the head. No aneurysm or large vessel occlusion. Electronically Signed: Asad Pfeiffer MD at 23:13 EDT , Service support , Head/Neck CTA 03/22/21 08:52 IMPRESSION: Atherosclerotic calcific plaques at the origin of the right internal carotid artery causing less than 50% luminal stenosis. Atherosclerotic calcific plaques at the origin of the left internal carotid artery causing between 50 and 69% stenosis. Electronically Signed: Ramiro Gilman MD at 10:15 EDT , Service support , D/C Instructions Discharge Diet: No restrictions Call your doctor if you observe: Shortness of breath, Dizziness, Fainting spells and Chest pain Meaningful Use Info Meaningful Use Diagnoses (Choose all that apply): None applicable Discharge Plan Admission Admit Date/Time: 03/21/21 15:41 Primary Reason for Your Visit: Imbalance, near syncope Attending Provider: Jose Ham Primary Care Provider: Annie Becerril Discharge Orders/Prescriptions Prescriptions: New Ensure Enlive 0.08 gram-1.5 kcal/mL Liquid 120 ml PO 4X/DAY Qty: 0 RF: 0 Continued citalopram 20 MG tablet 20 mg PO DAILY RF: 0 simvastatin 20 MG tablet 20 mg PO QHS RF: 0 folic acid 1 MG tablet 1 mg PO DAILY@0800 RF: 0 cholecalciferol (vitamin D3) [Vitamin D3] 1,000 UNIT tablet 1,000 unit PO MOFR RF: 0 multivitamin with folic acid [Thera] 1 TABLET tablet 1 tab PO DAILY RF: 0 methotrexate sodium 2.5 MG tablet 6 tab PO WE RF: 0 Enbrel 50 MG/ML syringe 25 mg SQ WESA RF: 0 famotidine 20 MG tablet 40 mg PO DAILY RF: 0 cranberry 500 MG capsule 500 mg PO DAILY RF: 0 aspirin 81 MG tablet,delayed release (DR/EC) 81 mg PO DAILY RF: 0 lidocaine-prilocaine 30 GM cream 1 applicatio TP DAILY PRN PRN (Reason: Not Specified) RF: 0 Systane Gel 10 GM gel 1 drp Left Eye QHS RF: 0 ascorbic acid (vitamin C) 1,000 mg Tablet 1 g PO DAILY RF: 0 cephalexin 250 mg capsule 250 mg PO QHS RF: 0 alendronate 70 mg tablet 70 mg PO QWEEK RF: 0 methenamine hippurate 1 gram tablet 1 g PO BID RF: 0 Gemtesa 75 mg Tablet 75 mg PO DAILY RF: 0 Referrals / Follow Up: Oncology, Primary [Other] - In 1 Week Annie Becerril DO [Primary Care Provider] - In 1 Week Disposition Disposition (needs filled in before D/C Order can be placed): Home, Self Care Documented by User: Dr. Jose Ham MD 03/22/21 15:57 Providers Date of Admission: 03/21/21 Reason For Visit: CVA Medications at Discharge Home Medications cholecalciferol (vitamin D3) [Vitamin D3] 1,000 unit PO MOFR 09/01/15 citalopram 20 mg PO DAILY 09/01/15 folic acid 1 mg PO DAILY@0800 09/01/15 multivitamin with folic acid [Thera] 1 tab PO DAILY 09/01/15 simvastatin 20 mg PO QHS 09/01/15 Enbrel 25 mg SQ WESA 01/21/17 methotrexate sodium 6 tab PO WE 01/21/17 Systane Gel 1 drp LEFT EYE QHS 03/10/18 aspirin 81 mg PO DAILY 03/10/18 lidocaine-prilocaine 1 applicatio TP DAILY PRN PRN 03/10/18 cranberry 500 mg PO DAILY 07/26/20 famotidine 40 mg PO DAILY 07/26/20 Gemtesa 75 mg PO DAILY 03/21/21 alendronate 70 mg PO QWEEK 03/21/21 ascorbic acid (vitamin C) 1 g PO DAILY 03/21/21 cephalexin 250 mg PO QHS 03/21/21 methenamine hippurate 1 g PO BID 03/21/21 food supplemt, lactose-reduced [Ensure Enlive] 120 ml PO 4X/DAY #0 ml 03/22/21 Hospital Course Operations None Summary of Care Provided Hospital Course: This patient was seen in conjunction with MONICA Bianchi . I have independently interviewed and examined the patient and reviewed pertinent historical, laboratory, and other data. Please refer to PILAR Bianchi note for details of this patient's presentation, findings, and recommendations. I have reviewed PILAR Bianchi note and concur with documented findings. In brief, patient is a 75-year-old female with multiple comorbidities admitted with imbalance. Patient was admitted to a monitored bed for subsequent work-up of possible posterior circulation CVA. Patient MRI obtained was negative for CVA. Hospital course: As documented above ABG / Lab / Microbiology Data Result Diagrams: 03/22/21 05:50 03/22/21 05:50 Discharge Plan Admission Admit Date/Time: 03/21/21 15:41 Primary Reason for Your Visit: Imbalance, near syncope Attending Provider: Jose Ham Primary Care Provider: Annie Becerril Discharge Orders/Prescriptions Prescriptions: New Ensure Enlive 0.08 gram-1.5 kcal/mL Liquid 120 ml PO 4X/DAY Qty: 0 RF: 0 Continued citalopram 20 MG tablet 20 mg PO DAILY RF: 0 simvastatin 20 MG tablet 20 mg PO QHS RF: 0 folic acid 1 MG tablet 1 mg PO DAILY@0800 RF: 0 cholecalciferol (vitamin D3) [Vitamin D3] 1,000 UNIT tablet 1,000 unit PO MOFR RF: 0 multivitamin with folic acid [Thera] 1 TABLET tablet 1 tab PO DAILY RF: 0 methotrexate sodium 2.5 MG tablet 6 tab PO WE RF: 0 Enbrel 50 MG/ML syringe 25 mg SQ WESA RF: 0 famotidine 20 MG tablet 40 mg PO DAILY RF: 0 cranberry 500 MG capsule 500 mg PO DAILY RF: 0 aspirin 81 MG tablet,delayed release (DR/EC) 81 mg PO DAILY RF: 0 lidocaine-prilocaine 30 GM cream 1 applicatio TP DAILY PRN PRN (Reason: Not Specified) RF: 0 Systane Gel 10 GM gel 1 drp Left Eye QHS RF: 0 ascorbic acid (vitamin C) 1,000 mg Tablet 1 g PO DAILY RF: 0 cephalexin 250 mg capsule 250 mg PO QHS RF: 0 alendronate 70 mg tablet 70 mg PO QWEEK RF: 0 methenamine hippurate 1 gram tablet 1 g PO BID RF: 0 Gemtesa 75 mg Tablet 75 mg PO DAILY RF: 0 Referrals / Follow Up: Oncology, Primary [Other] - In 1 Week Annie Becerril DO [Primary Care Provider] - In 1 Week Disposition Disposition (needs filled in before D/C Order can be placed): Home, Self Care Charges/Coding Visit Charges OBSV E&M: 45648 Observation care discharge Hospital Course Imaging Results Imaging Results: 03/22/21 08:52 CTA Head AND Neck W/ Contrast [CT] Urgent Operations None
[2021-03-22] MEDS: 0.9% Saline Lock 10 ML Syringe IV (16:00)
== END 2021-03-22 11:30 | disposition home or self-care (01) ==
LOC: ED 15:26 → PCU 16:01
PROVIDERS: Admitting Provider Family Medicine; Emergency Provider Emergency Medicine; PCP Internal Medicine; Visit Provider Internal Medicine
DX: H81.4 Vertigo of central origin (principal); I65.23 Occlusion and stenosis of bilateral carotid arteries; M19.90 Unspecified osteoarthritis, unspecified site; E78.5 Hyperlipidemia, unspecified; F32.9 Major depressive disorder, single episode, unspecified; M06.9 Rheumatoid arthritis, unspecified; N30.10 Interstitial cystitis (chronic) without hematuria; Z79.899 Other long term (current) drug therapy; Z79.82 Long term (current) use of aspirin; Z87.891 Personal history of nicotine dependence; R29.700 NIHSS score 0; F41.9 Anxiety disorder, unspecified; E43 Unspecified severe protein-calorie malnutrition; R19.7 Diarrhea, unspecified; Z85.3 Personal history of malignant neoplasm of breast; Z68.24 Body mass index [BMI] 24.0-24.9, adult
CPT/HCPCS: 36415; 36591; 70450; 70496; 70498; 70544; 70551; 71045; 80048; 80053; 80061; 83036; 83735; 84443; 84484; 85025; 87426; 92610; 93005; 93306; 94762; 96361; 96372; 96374; 97162; 97166; 97802; 99218; 99251; 99285; J7030; Q9967; A4216; G0378; G0463

== ENCOUNTER → 2021-03-29 15:29 | Outpatient (CLI) | payer MEDICARE, OTHER, SELFPAY ==
[2021-03-29 17:39] LABS: Absolute Lymphocyte Count 0.95 X10^3/uL (0.83-4.51); Absolute Neutrophil Count 2.1 X10^3/uL (2.0-7.7); Basophil# 0.02 X10^3/uL; Basophil% 0.5 % (0-1); Eosinophil# 0.14 X10^3/uL; Eosinophils% 3.8 % (0-5); Hematocrit 35.8 % (37-47); Hemoglobin 11.5 g/dL (12.0-15.0); Lymphocyte # 0.95 X10^3/ul (0.83-4.51); Lymphocyte % 25.8 % (19-41); Mean Corp Hgb Conc 32.1 g/dL (32-36); Mean Corpuscular Hgb 29.3 pg (27.0-32.0); Mean Corpuscular Volume 91.3 fL (81-99); Mean Platelet Vol. 9.8 fl (6.2-12.0); Monocyte# 0.45 X10^3/uL; Monocyte% 12.2 % (0-10); NRBC Flagged by Analyzer 0 % (0-5); Neutrophil % 57.2 % (47-70); Platelet Count 247 K/mm3 (150-450); RBC Distribution Width SD 53.1 fl (35.1-43.9); Red Blood Count 3.92 M/mm3 (4.2-5.4); White Blood Count 3.7 K/mm3 (4.4-11.0)
[2021-03-29 17:51] LABS: Erythrocyte Sedimentation Rate 71 mm/hr (0-30)
[2021-03-29 18:00] LABS: ALB/GLOB Ratio 0.6 RATIO (0.9-2.4); AST(SGOT) 31 U/L (15-37); Alanine Aminotransfer ALT/SGPT 32 U/L (13-56); Albumin, Serum 2.7 g/dL (3.2-5.0); Alkaline Phosphatase 64 U/L (45-117); Anion Gap 6 (5-15); BUN 19 mg/dL (7-18); BUN/Creat Ratio 33.4 RATIO (10-20); Calcium,Total 9.4 mg/dL (8.5-10.1); Chloride 107 mmol/L (98-107); Creatinine, Serum 0.57 mg/dL (0.55-1.02); EST Glomerular Filtration Rate 110 mL/min (>60); Est Glom Filt Rate - Afr Amer 134 mL/min (>60); Globulin 4.3 g/dL (2.2-4.2); Glucose 86 mg/dL (74-106); Potassium 3.7 mmol/L (3.5-5.1); Sodium Level 137 mmol/L (136-145); Thyroid Stim Hormone (TSH) 3.04 uIU/mL (0.358-3.74)
[2021-03-31 20:16] LABS: CMV Acute Antibody IgM < 30.0 AU/mL (0.0-29.9); CMV Antibody IgG < 0.60 U/mL (0.00-0.59); EBV Acute VCA IgM < 36.0 U/mL (0.0-35.9); EBV Nuclear Antigen IgG 19.5 U/mL (0.0-17.9); EBV-VCA IgG > 600.0 U/mL (0.0-17.9)
== END ==
PROVIDERS: PCP Internal Medicine; Referring Provider Internal Medicine; Visit Provider Internal Medicine
DX: R05 Cough (principal); R53.83 Other fatigue; I95.9 Hypotension, unspecified; R63.4 Abnormal weight loss
CPT/HCPCS: 36415; 80053; 84443; 85025; 85652; 86140; 86644; 86645; 86664; 86665; 87086; 87088

== ENCOUNTER → 2021-04-06 14:19 | Outpatient (CLI) | payer MEDICARE, OTHER, SELFPAY ==
--- NOTE | 2021-04-06 14:21 | CT_ITS ---
STUDY: CT CHEST, ABDOMEN T PELVIS WITH CONTRAST REASON FOR EXAM: Female, 75 years old. Cough and weight loss. History of breast cancer. RADIATION DOSAGE (If Supplied By Facility): CTDIvol = ( 6.96 ) mGy, DLP = ( 549.97 ) mGycm TECHNIQUE: Transaxial imaging was performed following intravenous administration of Oral and amp; IV Gastrografin and amp; 100mL Isovue-300. Individualized dose optimization techniques were used for this CT. COMPARISON: Comparison made with prior CT scan of the thorax dated 12/07/2015. FINDINGS: CHEST A right-sided portacatheter is seen with the tip in the superior vena cava. Surgical clips are seen in the left axillary region. There now is evidence of a 2.8 cm x 2.2 cm area of scarring and heterogeneous appearance in the anterior aspect of the left upper lobe. This extends inferiorly into the origin of the aortic arch. This most likely represents post radiation fibrosis although a neoplastic process cannot be ruled out. Correlation with a PET scan is recommended for further evaluation. Mild degree of increased markings are also seen along the medial aspect of the right upper lobe suggestive of scarring. There is no demonstrated pleural abnormality. There are calcifications of the coronary arteries. Normal mediastinum. Normal hilar regions. Normal unenhanced pulmonary arteries. Normal aorta arch and descending thoracic aorta. There are multi-level degenerative changes of the thoracic spine. Moderate degree of hiatal hernia. ABDOMEN Normal liver. Normal gallbladder and extrahepatic biliary system. There is a 8.7 mm cyst in the anterior aspect of the spleen. Normal pancreas. Normal bilateral adrenal glands. Normal right kidney. Normal left kidney. There is a moderate sized hiatal hernia. Normal small intestine. Normal colon. The appendix is visualized and appears normal. There is diffuse atherosclerotic calcification of the abdominal aorta, without a demonstrated aneurysm. Normal inferior vena cava. Normal retroperitoneum. Normal abdominal wall. Disc space narrowing and disc degeneration at the L4-L5 and L5-S1 levels. There is evidence of a decreased density of the L2 vertebrae. This may represent an hemangioma. Correlation with the bone scan is recommended. PELVIS Normal urinary bladder. Scattered sigmoid diverticula. 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 Correlation with a PET scan is recommended for further evaluation. Findings suggestive of an hemangioma in the body of the L2 vertebrae. Correlation with a bone scan is recommended. Electronically Signed: Ramiro Gilman MD at 15:10 EDT , Service support ,
== END ==
PROVIDERS: PCP Internal Medicine; Referring Provider Internal Medicine; Visit Provider Internal Medicine
DX: R05 Cough (principal); R63.4 Abnormal weight loss
CPT/HCPCS: 71260; 74177; Q9967

== ENCOUNTER → 2021-04-20 09:30 | Outpatient (CLI) | payer MEDICARE, OTHER, SELFPAY ==
--- NOTE | 2021-04-20 09:32 | NM_ITS ---
CLINICAL: Female, 75 years old. BREAST CA WHOLE BODY NUCLEAR BONE SCAN TECHNIQUE: Following the IV administration of 24 mCi of Tc MDP, whole body bone imaging was performed with a gamma camera following a three hour delay. COMPARISON STUDIES : NM - None. CR - Not available for review at this time. CT - Not available for review at this time. MR - Not available for review at this time. US - Not available for review at this time. FINDINGS: There is a normal concentration of radiopharmaceutical throughout the axial and appendicular skeletal system without either a focal decrease or increase in uptake. NM/Bone Scan Whole Body IMPRESSION: Normal whole body nuclear bone scan. No scintigraphic evidence of metastatic disease. Electronically Signed: Jorge L Looney MD at 13:08 EDT Tel , Service support ,
== END ==
PROVIDERS: PCP Internal Medicine; Referring Provider Internal Medicine; Visit Provider Internal Medicine
DX: C50.919 Malignant neoplasm of unspecified site of unspecified female breast (principal)
CPT/HCPCS: 78306; A9503

== ENCOUNTER → 2021-05-22 16:53 | Outpatient (CLI) | payer MEDICARE, OTHER, SELFPAY ==
--- NOTE | 2021-05-22 16:30 | PET_ITS ---
EXAMINATION: FDG PET-CT INDICATIONS: A 75-year-old female with history of pulmonary nodularity. COMPARISON EXAMINATION: CT of the chest, abdomen and pelvis report dated 04/06/21 TECHNIQUE: Following the intravenous administration of F-18 deoxyglucose, multiplanar image acquisitions of the neck, chest, abdomen and pelvis to level of mid thigh, obtained at one hour post radiopharmaceutical administration contemporaneously interpreted with the current CT of the neck, chest, abdomen and pelvis, to level of mid thigh, dated 05/22/[address] of the chest, abdomen and pelvis report dated 04/06/21 reveals: FINDINGS: 1. There is no quantitative scintigraphic evidence of abnormal increased glucose metabolism to correlate with an ill-defined ground glass density noted in the left upper anteromedial lung-left upper lobe noted on review of CT of the thorax dated 05/22/21. 2. Normal physiologic distribution of the radiopharmaceutical is apparent in the hepatic and splenic parenchyma, both renal units, bladder and visualized intestinal tract. The visualized portion of the cerebral cortical-subcortical structures demonstrate symmetric and preserved glucose metabolism. Diffuse radiopharmaceutical concentration is noted in all four quadrants of the abdomen and pelvis. Pertinent CT findings are as follows: CHEST: Paola-cath placement is noted. There is atherosclerotic calcification defined in the thoracic aorta without evidence of dilatation-aneurysm formation. Coronary arterial calcification is observed. A hiatal hernia is defined. Bilateral axillary soft tissue densities with fatty hilus are ametabolic. Surgical clip placement is defined in the left axilla. The ground glass density defined in the left upper anteromedial lung field demonstrates no evidence of quantitatively significant increased FDG uptake. ABDOMEN AND PELVIS: There is atherosclerotic calcification defined in the abdominal aorta without evidence of dilatation-aneurysm formation. Pelvic arterial calcification is demonstrated. Bilateral inguinal soft tissue densities with fatty hilus are ametabolic. SKELETAL: Degenerative changes are noted in the cervical, thoracic and lumbar spine without evidence of increased radiopharmaceutical concentration. PET/PET/CT Tumor Base -Thigh Init IMPRESSION: 1. NEGATIVE EXAMINATION. There is no quantitative scintigraphic evidence of abnormal increased glucose metabolism to correlate with the ill-defined ground glass density noted in the left upper anteromedial lung-left upper lobe noted on review of CT of the thorax dated 05/22/21. 2. Anatomic stability may be ensured in the nonglucose avid left upper lobe parenchymal density with repeat FDG PET-CT imaging and/or CT of the chest in 3-6 months if clinically indicated. (Keri, Seminars in Thoracic and Cardiovascular Surgery 14:292, 2002). Electronic Signature Jorge L Reeves D.O. Accurate Quantification of SUVs for this report are calculated using the exclusive [employer]. (U.S. Patent No. 10, [id number] 983). Standardization and correction of the FDG SUV metric via [employer] technology allow for vendor non-specific objective quantitative examination comparison and optimization of the sensitivity and specificity of the FDG PET-CT examination. Electronically Signed: Jorge L Reeves DO at 22:37 EDT Tel , Service support ,
== END ==
PROVIDERS: PCP Internal Medicine; Referring Provider Internal Medicine; Visit Provider Internal Medicine
DX: R93.5 Abnormal findings on diagnostic imaging of other abdominal regions, including retroperitoneum (principal)
CPT/HCPCS: 78815; A9552

== ENCOUNTER → 2021-07-20 09:46 | Outpatient (CLI) | payer MEDICARE, OTHER, SELFPAY ==
--- NOTE | 2021-07-20 10:21 | BI_ITS ---
MAMMOGRAPHY - BILATERAL SCREENING REASON FOR EXAM: Female, 75 years old. Routine annual screening examination. PERTINENT HISTORY: Personal history of breast cancer. Prior left lumpectomy with chemotherapy and radiation therapy. TECHNIQUE: Digital bilateral breast almita (3D mammographic acquisition) in the CC and MLO projections. 2-D mediolateral oblique (MLO) and craniocaudad (CC) views of both breasts were obtained. CAD: Full Field Digital Mammography with Computer Added Detection was performed. COMPARISON: Comparison is made with prior study dated 07/19/2020 and 07/14/2019. FINDINGS: Breast Composition: The breasts are heterogeneously dense, which may obscure small masses. There are no dominant masses or suspicious calcifications. The patient is status post left lumpectomy WITH postoperative scarring and deformity in the deep upper lateral aspect of the left breast with persistent skin thickening. Interstitial clip marker is seen in the upper lateral aspect of the right breast. No other significant abnormalities are identified. There has been no significant change since the prior study. BI/SCRN MAMM (CAD)W/ALMITA BILAT IMPRESSION: Stable bilateral screening mammogram. Yearly follow-up mammogram recommended. (A) ASSESSMENT CATEGORY: BIRADS Category 2: Benign. A letter regarding these results will be sent to the patient by the facility within 30 days. Approximately 10% of breast cancers are not detected by mammography. A normal mammogram should not delay biopsy of a clinically suspicious abnormality. [id number] Electronically Signed: Ramiro Gilman MD at 12:17 EST , Service support ,
== END ==
PROVIDERS: PCP Internal Medicine; Referring Provider Internal Medicine Medical Oncology; Visit Provider Internal Medicine Medical Oncology
DX: Z12.31 Encounter for screening mammogram for malignant neoplasm of breast (principal); Z85.3 Personal history of malignant neoplasm of breast
CPT/HCPCS: 77063; 77067

== ENCOUNTER 2021-10-11 11:48 | Outpatient (CLI) | payer MEDICARE, OTHER, SELFPAY ==
--- NOTE | 2021-10-11 15:49 | RAD_ITS ---
STUDY: X-RAY CHEST REASON FOR EXAM: Female, 75 years old. SOB TECHNIQUE: Frontal and lateral views COMPARISON: 04/13/2021. FINDINGS: Stable right-sided venous port. The lungs are clear and expanded. There is no demonstrated pleural abnormality. Normal size heart. Normal mediastinum and inna. Normal visualized pulmonary arteries. Normal visualized aortic arch and descending thoracic aorta. Normal visualized thoracic spine. Normal visualized ribs, clavicles, and shoulders. Hiatal hernia. RAD/Chest PA and Lateral IMPRESSION: Hiatal hernia. Electronically Signed: Carlos Stevens DO at 16:11 EST Reading Location ID and State: [facility] / [place] Tel [phone], Service support ,
[2021-10-11 17:55] LABS: Absolute Lymphocyte Count 2.37 X10^3/uL (0.83-4.51); Absolute Neutrophil Count 7.4 X10^3/uL (2.0-7.7); Basophil# 0.05 X10^3/uL; Basophil% 0.5 % (0-1); Eosinophil# 0.07 X10^3/uL; Eosinophils% 0.6 % (0-5); Hematocrit 41.3 % (37-47); Hemoglobin 13.4 g/dL (12.0-15.0); Lymphocyte # 2.37 X10^3/ul (0.83-4.51); Lymphocyte % 21.8 % (19-41); Mean Corp Hgb Conc 32.4 g/dL (32-36); Mean Corpuscular Hgb 28.8 pg (27.0-32.0); Mean Corpuscular Volume 88.8 fL (81-99); Mean Platelet Vol. 10.4 fl (6.2-12.0); Monocyte# 0.94 X10^3/uL; Monocyte% 8.6 % (0-10); NRBC Flagged by Analyzer 0 % (0-5); Neutrophil # 7.42 X10^3/uL (2.7-7.7); Neutrophil % 68.1 % (47-70); Platelet Count 298 K/mm3 (150-450); RBC Distribution Width CV 15.2 % (11.6-14.6); RBC Distribution Width SD 48.6 fl (35.1-43.9); Red Blood Count 4.65 M/mm3 (4.2-5.4); White Blood Count 10.9 K/mm3 (4.4-11.0)
[2021-10-11 18:14] LABS: ALB/GLOB Ratio 0.9 RATIO (0.9-2.4); AST(SGOT) 20 U/L (15-37); Alanine Aminotransfer ALT/SGPT 22 U/L (13-56); Albumin, Serum 3.9 g/dL (3.2-5.0); Alkaline Phosphatase 89 U/L (45-117); Anion Gap 10 (5-15); BUN 22 mg/dL (7-18); BUN/Creat Ratio 20.6 RATIO (10-20); Calcium,Total 10.3 mg/dL (8.5-10.1); Chloride 106 mmol/L (98-107); Creatinine, Serum 1.07 mg/dL (0.55-1.02); EST Glomerular Filtration Rate 53 mL/min (>60); Est Glom Filt Rate - Afr Amer 64 mL/min (>60); Globulin 4.2 g/dL (2.2-4.2); Glucose 120 mg/dL (74-106); Potassium 4.2 mmol/L (3.5-5.1); Protein, Total 8.1 g/dL (6.4-8.2); Sodium Level 133 mmol/L (136-145)
== END 2021-10-11 23:59 | disposition home or self-care (01) ==
LOC: LAB 11:50 → MTLAB 15:45
PROVIDERS: PCP Internal Medicine; Referring Provider Urology; Visit Provider Urology
DX: L24.4 Irritant contact dermatitis due to drugs in contact with skin (principal); L01.1 Impetiginization of other dermatoses; R06.02 Shortness of breath; R53.83 Other fatigue
CPT/HCPCS: 36415; 71046; 80053; 85025; 87070; 87205

== ENCOUNTER 2021-10-26 10:02 | Day surgery (SDC) | payer MEDICARE, OTHER, SELFPAY ==
--- NOTE | 2021-10-25 11:00 | EKG12_ITS ---
Test Reason : PREOP Blood Pressure : / mmHG Vent. Rate : 072 BPM Atrial Rate : 072 BPM P-R Int : 142 ms QRS Dur : 066 ms QT Int : 398 ms P-R-T Axes : 022 -12 018 degrees QTc Int : 435 ms Normal sinus rhythm Normal ECG Confirmed by OSMANI URIAS, HUGO ([id number]), design editor KINZA GÓMEZ ([id number]) on 10/25/2021 1:39:01 PM Referred By: Concepción Conway Confirmed By:NICHOLE KEEN MD
[2021-10-25 11:31] LABS: Hematocrit 40.1 % (37-47); Hemoglobin 12.9 g/dL (12.0-15.0); Mean Corp Hgb Conc 32.2 g/dL (32-36); Mean Corpuscular Hgb 29.9 pg (27.0-32.0); Mean Corpuscular Volume 92.8 fL (81-99); Mean Platelet Vol. 9.6 fl (6.2-12.0); Platelet Count 259 K/mm3 (150-450); RBC Distribution Width CV 14.7 % (11.6-14.6); RBC Distribution Width SD 49.4 fl (35.1-43.9); Red Blood Count 4.32 M/mm3 (4.2-5.4)
[2021-10-25 11:55] LABS: Anion Gap 4 (5-15); BUN 24 mg/dL (7-18); Calcium,Total 9.7 mg/dL (8.5-10.1); Chloride 108 mmol/L (98-107); Creatinine, Serum 0.75 mg/dL (0.55-1.02); EST Glomerular Filtration Rate 80 mL/min (>60); Est Glom Filt Rate - Afr Amer 97 mL/min (>60); Glucose 116 mg/dL (74-106); Potassium 4.5 mmol/L (3.5-5.1); Sodium Level 137 mmol/L (136-145)
[2021-10-26] VITALS (7 sets, daily range): BP systolic 108–129; BP diastolic 54–76; PULSE 70–96; RESP 16; TEMP 36.2–36.9; O2SAT 94–100; BMI 22.8
--- NOTE | 2021-10-26 10:24 | OP.PCM_ITS ---
Problems Associated Problem List Diagnoses (1) Interstitial cystitis: Report of Operation Date of Procedure: 10/26/21 Pre-Operative Diagnosis: Interstitial cystitis Post-Operative Diagnosis: Same, Hunner's Ulcers Surgery/Procedure Performed:: Cystoscopy, bladder biopsy with fulguration Surgeon: Concepción Conway Type of Anesthesia: MAC Specimen's removed: bladder biopsy Description of Procedure: The patient is a 75-year-old female with a history of interstitial cystitis and Anthony's ulcers. She has been having severe bladder pain with urgency and frequency, severe nocturia for the last few weeks. She now presents for evaluation and management of possible recurrence of these ulcerations. Informed consent was obtained. The patient was taken the operating room and placed on the operating room table. Anesthesia monitored the head, neck, airway, IV access and vital signs throughout the case. Once anest hesia was probably administered the patient was placed into dorsal lithotomy position and was prepped and draped in usual sterile fashion. The cystoscope was then inserted through the urethra under direct visualization into the urinary bladder. The bladder mucosa was visualized in its entirety. Two Hunner's ulcers were identified, one on the left lateral wall and one on the right lateral wall. Both areas were biopsied and fulgurated for hemostasis and tissue treatment. At this time the patient's bladder was emptied and the case was terminated. The patient was awakened and taken to the recovery room in good condition. There were no complications during this procedure. Grafts/Implants Used: None Complications None Admit VTE Documentation VTE Present on Admission: Yes VTE Mechan Device Prophylaxis: SCD's VTE Pharm Prophylaxis ordered?: No Reason prophylaxis not ordered:: Treatment Not Indicated
[2021-10-26] MEDS: Lactated Ringers 1,000 ML 15 ML IV (10:25)
--- NOTE | 2021-10-26 10:26 | PCM.DC ---
Discharge Instructions Diet Discharge Diet: No restrictions Activity Discharge Activity: Return to Normal Activity Dressing / Incision Call your doctor if you observe: Fever of 101 or Higher, Inability to urinate and Inability to have a bowel movement Follow Up Care Please Follow Up With: Concepción Conway MD When: Call the office for appointment Test Results: Test results from this visit will be discussed in further detail at your follow-up appointment, if applicable. Discharge Plan Admission Attending Provider: Concepción Conway Primary Care Provider: Melissa Laura Discharge Orders/Prescriptions Prescriptions: New oxycodone-acetaminophen [oxycodone-acetaminophen] 1 TABLET tablet 2 tab PO Q8H PRN PRN (Reason: Pain) 7 Days Qty: 20 RF: 0 cephalexin [cephalexin] 500 MG capsule 500 mg PO Q12 3 Days Qty: 6 RF: 0 Continued oxybutynin chloride 5 mg tablet 5 mg PO DAILY RF: 0 citalopram 20 MG tablet 20 mg PO DAILY RF: 0 simvastatin 20 MG tablet 20 mg PO QHS RF: 0 folic acid 1 MG tablet 1 mg PO DAILY@0800 RF: 0 cholecalciferol (vitamin D3) [Vitamin D3] 1,000 UNIT tablet 1,000 unit PO MOFR RF: 0 multivitamin with folic acid [Thera] 1 TABLET tablet 1 tab PO DAILY RF: 0 methotrexate sodium 2.5 MG tablet 6 tab PO WE RF: 0 Enbrel 50 MG/ML syringe 25 mg SQ WESA RF: 0 famotidine 20 MG tablet 40 mg PO DAILY RF: 0 cranberry 500 MG capsule 500 mg PO DAILY RF: 0 aspirin 81 MG tablet,delayed release (DR/EC) 81 mg PO DAILY RF: 0 lidocaine-prilocaine 30 GM cream 1 applicatio TP DAILY PRN PRN (Reason: Not Specified) RF: 0 Systane Gel 10 GM gel 1 drp Left Eye QHS RF: 0 ascorbic acid (vitamin C) 1,000 mg Tablet 1 g PO DAILY RF: 0 alendronate 70 mg tablet 70 mg PO QWEEK RF: 0 Referrals / Follow Up: Melissa Laura MD [Primary Care Provider] - Disposition Disposition (needs filled in before D/C Order can be placed): Home, Self Care
[2021-10-26] MEDS: Cefazolin 2 GM in 0.9% Normal Saline 100 ML IV (10:39)
--- NOTE | 2021-10-26 11:25 | BLA_PTH ---
PATIENT: CHARMAINE DÍAZ [place] [facility] [place][id number] AGE/SX: 75/F ROOM: RE10/26/[address]: Dr. Concepción Conway MD : [id number] BED: DIS: 10/26/2021 SPEC #: [id number] RECD: 10/26/21 13:30 STATUS: PARKER ZAMUDIO #: [id number] DARIO: 10/26/21 11:[address]: Concepción Conway DEPT: SURGICAL PATHOLOGY RECD BY: Yoli Arnett ENTERED: 10/29/21 10:26 SP TYPE: BLADDER BX OTHR DR: Dr. Melissa Laura MD Tissues: Urinary bladder, NOS Procedures: Surgery Specimen Level IV HEADER OPERATION: Cysto, bladder biopsy, fulguration PRE-OP DIAGNOSIS: Interstitial cystitis TISSUE SUBMITTED: Bladder biopsy MICROSCOPIC DIAGNOSIS Bladder, biopsy: Fragments of urothelial mucosa with moderate chronic inflammation and mild acute inflammation. Negative for malignancy. See comment. JSOE:estrellita 10/30/2021 COMMENT The epithelium is denuded in most of the specimen. Detrusor muscle is present in the specimen. MICROSCOPIC DESCRIPTION Slides are reviewed. GROSS DESCRIPTION Received in fixative is one container labeled with the patient's name and designated bladder biopsy. The specimen consists of two irregular fragments of light hernandez soft tissue that in aggregate measure 0.2 x 0.2 x 0.1 cm. The specimen is totally submitted in one cassette. / AM:estrellita 10/29/2021 TC:3 CPT: 31485
== END 2021-10-26 23:59 | disposition home or self-care (01) ==
LOC: SDC 10:03 → AC 10:04
PROVIDERS: PCP Internal Medicine; Referring Provider Urology; Visit Provider Urology
PROC: 0TBB8ZX Excision of Bladder, Via Natural or Artificial Opening Endoscopic, Diagnostic (ICD-10-PCS; CPT 52204; principal; 2021-10-26 11:15)
DX: N30.10 Interstitial cystitis (chronic) without hematuria (principal); M06.9 Rheumatoid arthritis, unspecified; N32.89 Other specified disorders of bladder; R35.1 Nocturia; N39.46 Mixed incontinence; N95.2 Postmenopausal atrophic vaginitis; E78.00 Pure hypercholesterolemia, unspecified; K21.9 Gastro-esophageal reflux disease without esophagitis; Z90.12 Acquired absence of left breast and nipple; Z79.82 Long term (current) use of aspirin; Z79.899 Other long term (current) drug therapy; Z87.440 Personal history of urinary (tract) infections; Z87.891 Personal history of nicotine dependence; Z20.822 Contact with and (suspected) exposure to COVID-19
CPT/HCPCS: 52204; 36415; 80048; 85027; 87426; 88305; 93005; C9803; J7120; A4216

== ENCOUNTER 2021-11-20 14:57 | Outpatient (CLI) | payer MEDICARE, OTHER, SELFPAY ==
[2021-11-20 17:51] LABS: Anion Gap 8 (5-15); BUN 17 mg/dL (7-18); Calcium,Total 9.4 mg/dL (8.5-10.1); Chloride 109 mmol/L (98-107); Creatinine, Serum 0.68 mg/dL (0.55-1.02); EST Glomerular Filtration Rate 90 mL/min (>60); Est Glom Filt Rate - Afr Amer 109 mL/min (>60); Glucose 119 mg/dL (74-106); Potassium 3.7 mmol/L (3.5-5.1); Sodium Level 138 mmol/L (136-145)
== END 2021-11-20 23:59 | disposition home or self-care (01) ==
LOC: MTLAB 14:58
PROVIDERS: PCP Internal Medicine; Referring Provider Urology; Visit Provider Urology
DX: N30.10 Interstitial cystitis (chronic) without hematuria (principal); N32.89 Other specified disorders of bladder; R35.1 Nocturia
CPT/HCPCS: 36415; 80048

== ENCOUNTER → 2021-11-30 | Outpatient (CLI) | payer MEDICARE, OTHER, SELFPAY ==
[2021-11-30 15:36] LABS: Anion Gap 7 (5-15); BUN 21 mg/dL (7-18); BUN/Creat Ratio 26.6 RATIO (10-20); Calcium,Total 9.3 mg/dL (8.5-10.1); Chloride 105 mmol/L (98-107); Creatinine, Serum 0.79 mg/dL (0.55-1.02); EST Glomerular Filtration Rate 75 mL/min (>60); Est Glom Filt Rate - Afr Amer 91 mL/min (>60); Glucose 102 mg/dL (74-106); Sodium Level 136 mmol/L (136-145)
== END | disposition home or self-care (01) ==
LOC: MTLAB 11:40
PROVIDERS: PCP Internal Medicine; Referring Provider Urology; Visit Provider Urology
DX: R35.1 Nocturia (principal)
CPT/HCPCS: 36415; 80048

== ENCOUNTER → 2022-02-28 | Outpatient (CLI) | payer MEDICARE, OTHER, SELFPAY ==
[2022-02-28 12:41] LABS: Anion Gap 8 (5-15); BUN 19 mg/dL (7-18); BUN/Creat Ratio 23.1 RATIO (10-20); Calcium,Total 9.2 mg/dL (8.5-10.1); Chloride 105 mmol/L (98-107); Creatinine, Serum 0.82 mg/dL (0.55-1.02); EST Glomerular Filtration Rate 72 mL/min (>60); Est Glom Filt Rate - Afr Amer 87 mL/min (>60); Glucose 139 mg/dL (74-106); Potassium 4.2 mmol/L (3.5-5.1); Sodium Level 136 mmol/L (136-145)
[2022-02-28 15:48] LABS: Mucous, Urine 0 SEEN /hpf (<or=2+)
[2022-02-28 15:59] LABS: Color, Urine Amber (Yellow); Glucose, Dipstick Normal (Normal); Ketone-Dipstick 5 mg/dl (Negative); Leukocyte Esterase-Dipstick Negative /ul (Negative); Nitrite-Dipstick Positive (Negative); Occult Blood-Urine Negative /ul (Negative); Protein-Dipstick 30 mg/dl (Negative); Specific Gravity, Urine 1.015 (1.002-1.030); Urine Clarity Clear (Clear); Urine Urobilinogen 12 mg/dl (Normal)
[2022-02-28 16:09] LABS: Urine Bilirubin Dipstick 6 mg/dL (Negative)
[2022-02-28 16:13] LABS: Bacteria 1+ /hpf (None Seen); Red Blood Cells-Urine 0-5 SEEN /hpf (0-5); Squamous Epithelial Cells - UA 0-5 SEEN /hpf (5-10); White Blood Cells 5-10 SEEN /hpf (0-5)
== END | disposition home or self-care (01) ==
PROVIDERS: Physician Assistant; PCP Internal Medicine; Referring Provider Urology; Visit Provider Urology
DX: N30.10 Interstitial cystitis (chronic) without hematuria (principal); N32.89 Other specified disorders of bladder
CPT/HCPCS: 36415; 80048; 81001; 87086; 87088

== ENCOUNTER → 2022-04-24 | Outpatient (CLI) | payer MEDICARE, OTHER, SELFPAY ==
[2022-04-24 12:34] LABS: Anion Gap 10 (5-15); BUN 19 mg/dL (7-18); BUN/Creat Ratio 24.8 RATIO (10-20); Calcium,Total 9.7 mg/dL (8.5-10.1); Chloride 103 mmol/L (98-107); Creatinine, Serum 0.77 mg/dL (0.55-1.02); EST Glomerular Filtration Rate 78 mL/min (>60); Est Glom Filt Rate - Afr Amer 94 mL/min (>60); Glucose 106 mg/dL (74-106); Potassium 4.1 mmol/L (3.5-5.1); Sodium Level 137 mmol/L (136-145)
== END | disposition home or self-care (01) ==
LOC: MTLAB 10:11
PROVIDERS: PCP Internal Medicine; Referring Provider Urology; Visit Provider Urology
DX: N30.10 Interstitial cystitis (chronic) without hematuria (principal)
CPT/HCPCS: 36415; 80048

== ENCOUNTER → 2022-05-01 | Outpatient (CLI) | payer MEDICARE, OTHER, SELFPAY ==
[2022-05-01 11:01] LABS: Anion Gap 8 (5-15); BUN 18 mg/dL (7-18); BUN/Creat Ratio 27.4 RATIO (10-20); Calcium,Total 9.7 mg/dL (8.5-10.1); Chloride 106 mmol/L (98-107); Creatinine, Serum 0.66 mg/dL (0.55-1.02); EST Glomerular Filtration Rate 93 mL/min (>60); Est Glom Filt Rate - Afr Amer 113 mL/min (>60); Glucose 101 mg/dL (74-106); Potassium 4.2 mmol/L (3.5-5.1); Sodium Level 139 mmol/L (136-145)
[2022-05-01 11:03] LABS: Vitamin D,25 Hydroxy 60.3 ng/mL
[2022-05-01 11:11] LABS: T4 Free Direct 1.02 ng/dL (0.76-1.46); Thyroid Stim Hormone (TSH) 1.69 uIU/mL (0.358-3.74)
== END | disposition home or self-care (01) ==
PROVIDERS: Urology; PCP Internal Medicine; Referring Provider Internal Medicine; Visit Provider Internal Medicine
DX: N30.10 Interstitial cystitis (chronic) without hematuria (principal); M81.0 Age-related osteoporosis without current pathological fracture; R53.83 Other fatigue
CPT/HCPCS: 36415; 80048; 82306; 84439; 84443

== ENCOUNTER 2022-06-19 10:30 | Outpatient (RCR) | payer MEDICARE, OTHER, SELFPAY ==
--- NOTE | 2022-05-15 10:39 | HP.PTEVAL ---
Patient's Visit Information CHARMAINE DÍAZ is a 76 year old F referred to Physical Therapy by Dr. Melissa Laura MD with a diagnosis of balance problems and debility. Date of Evaluation: 05/15/22 Physical Therapist: SKYLAR Lucas - Visit Plan Frequency: 2x /Week Duration: 2 Months Plan: 2X/ week for 8 weeks for LE strengthening, higher level balance on compliant and non compliant surfaces, gait with and without head turns and changes in speed and direction with gait training and HEP. HEP: standing heel and toe raises at the counter - Subjective Pt reports that she is off balance and fatigued. She has to hold on to someone when she goes shopping cause she goes all over the place. When she stands up, she has to get her bearings and then she is ok. She once awhile ago (December) when she was walking into a restraunt and someone caught her. She does not get dizzy. Her legs get weak sometimes. She gets tired to easily. 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 She is up and down all day at home. She does not use an AD at home. Stairs: has a hard time with stairs due to RA. - Pain neck pain Pain Intensity (Out of 10): 6 - Objective Gait: Walks with increase veering in B directions and reaches out for the hallway rails as needed to correct balance. Stairs: up and down recip with 2 hand rails and uses the handrails to pull self up and increase heaviness in her legs going up and down the steps. Sit to stand: uses arms to help get self out of the chair. Takes her a few seconds to stand up straight to get her balance. LE MMT: R hip flex 7.9 and L 7#. R knee ext 8# and L knee ext 6.6#. R knee flex 10.4# and L knee flex 6.9#. R hip abd 9.9# and L 7.3#. Pt struggles to roll from R side to L side. Standing heel and toe raises: Pt has decreased ability to heel and toe raise due to weakness and LOB. FGA 12. CATSIB 80 - Balance/Special Test Scores Functional Gait Assessment Score: 12 % Disability: 60.0000 CATSIB Score (Max score 120 seconds): 80 Lower Extremity Functional Score: 21 - Goals Goal 1:: I HEP Goal Time Frame: 6-8 Weeks Goal 2:: Pt complain of 50% less fatigue with ADL's/housework/shopping Goal Time Frame: 6-8 Weeks Goal 3:: Increase score on FGA to decrease risk of falls (FGA: 12) Goal Time Frame: 6-8 Weeks Goal 4:: Increase CATSIB score (score was 80 at time of the eval) to improve balance Goal Time Frame: 6-8 Weeks - Rehabilitation Potential Rehabilitation Potential: Good - Anticipated Interventions Patient/Client Instruction: Educate patient on: Condition, Plan of Care For the Purpose of:: To improve muscle performance and motor function, To improve ability to perform ADL's, To increase tolerance to activity/condition/position, To improve performance and independence with ADL's, To decrease level of supervision to perform tasks, To improve ability of physical actions for home/community/work/leisure, To improve gait and locomotor functions, To improve endurance, To improve balance, To improve safety with gait Therapeutic Exercise to Include: Strength training, Endurance training, Balance training, Postural training, Gait and locomotor training, Neuromotor development, Active ROM, Dynamic Lumbar Stabilization For the Purpose of:: To improve muscle performance and motor function, To improve ability to perform ADL's, To increase tolerance to activity/condition/position, To improve performance and independence with ADL's, To decrease level of supervision to perform tasks, To improve ability of physical actions for home/community/work/leisure, To improve gait and locomotor functions, To improve endurance, To improve balance, To improve safety with gait Functional Training to Include: Gait training For the Purpose of:: To improve gait and locomotor functions, To improve safety with gait Thank you for the opportunity to evaluate your patient. For Medicare and Medicare HMO plans, please review the plan of care and approve it. It will need to be FAXED BACK to us at [phone] for Medicare purposes. For Medicare only, by signing this I certify the plan of care. Please let me know if there are questions or concerns regarding this plan of care. Physician Signature: Date:
--- NOTE | 2022-06-19 10:54 | HP.PTDCSUM ---
It has been my pleasure to treat CHARMAINE DÍAZ referred by Dr. Melissa Laura MD, with the diagnosis of balance problems and debility for a total of 9 visit(s). Discharge Date: 06/19/22 Please see the following information for a summary of their discharge status. Subjective: Pt reports that she feels 100% better. She feels that her balance is better. She has no pain. She is doing sink exercises including heel and toe raises and side hip abd and sit to stands and moving head horizontal. She has no dizziness. Pt reports 70% improvement in endurance. neck pain Pain Intensity (Out of 10): 0 % Improvement: 100 Objective/Function: FGA 27. CATSIB. Walks with normal gait pattern without veering Goal 1:: I HEP Goal Progress: Goal Met Goal 2:: Pt complain of 50% less fatigue with ADL's/housework/shopping Goal Progress: Goal Met Goal 3:: Increase score on FGA to decrease risk of falls (FGA: 12) Goal Progress: Goal Met Goal 4:: Increase CATSIB score (score was 80 at time of the eval) to improve balance Goal Progress: Goal Met Plan: DC PT to HEP Discharge Comments: DC PT to HEP If there are questions or concerns regarding this patient's physical therapy, please feel free to call me at [phone]. Thank you for the referral of this patient. Sincerely, Jo Ann Rasheed, MPT Balance/Gait/Functional tests - Balance/Special Test Scores Functional Gait Assessment Score: 27 % Disability: 10.0000 CATSIB Score (Max score 120 seconds): 120 Lower Extremity Functional Score: 60
== END 2022-06-19 19:00 | disposition home or self-care (01) ==
LOC: PT 10:30
PROVIDERS: PCP Internal Medicine; Visit Provider Internal Medicine
DX: R26.89 Other abnormalities of gait and mobility (principal); R53.81 Other malaise
CPT/HCPCS: 97110; 97140; 97161

== ENCOUNTER 2022-06-27 07:02 | Day surgery (SDC) | payer MEDICARE, OTHER, SELFPAY ==
[2022-06-27] MEDS: Lactated Ringers 1,000 ML 15 ML IV (07:30)
[2022-06-27 07:44] VITALS: BP 113/53; PULSE 82; RESP 16; TEMP 36.2; O2SAT 99; BMI 22.4
[2022-06-27] MEDS: Vancomycin IV 1,000 MG/200 ML BAG 200 MG IV (07:44)
[2022-06-27] MEDS: Lidocaine 2% /Epi 1:100 (20ml) 20 ML VIAL (08:32)
--- NOTE | 2022-06-27 08:40 | SUR.PREOP ---
PATIENT C/O SEVERE ITCHING TO RIGHT ARM WHERE IV VANCOMYCIN INFUSING, ALSO ITCHING RIGHT FLANK & ABDOMEN WHICH INITIALLY WAS JUST REDDENED, BUT NOW WITH A RAISED RED RASH. STOPPED IV VANCOMYCIN AND FLUSHED IV TUBING. DENIES ANY DIFFICULTY BREATHING OR SWALLOWING, NO ITCHING IN MOUTH, EYES, NOSE, OR THROAT. DR MORAN NOTIFIED, GAVE BENADRYL IV ORDERED. WILL NOTIFY DR TOBAR. WILL ADD VANCOMYCIN TO ALLERGIES.
--- NOTE | 2022-06-27 09:15 | RAD_ITS ---
STUDY: X-RAY - PELVIS REASON FOR EXAM: Female, 76 years old. Catheter placement TECHNIQUE: 3 intraoperative COMPARISON: None. FINDINGS: 3 limited intraoperative studies performed as the patient has undergone neural stimulator placement. No intraoperative complications. RAD/Pelvis 1 or 2 Views IMPRESSION: No intraoperative complications noted during neurostimulator placement Electronically Signed: Krishan Jeffries MD at 10:13 EST ,
[2022-06-27 09:55] VITALS: BP 107/83; BP 113/53; PULSE 71; RESP 16; TEMP 36.9; O2SAT 98
[2022-06-27 10:00] VITALS: BP 113/53; BP 126/56; PULSE 68; RESP 16; O2SAT 99
--- NOTE | 2022-06-27 10:03 | DCINST_ITS ---
Discharge Instructions Diet Discharge Diet: No restrictions Activity Discharge Activity: May Not Shower May resume sexual activity in: 4 weeks Dressing / Incision Call your doctor if your incision/area has: Continuous Slow Oozing, Sudden Increased Bleeding, Increased Pain/ Swelling, Increased Redness, Foul Smelling Discharge and Swelling at the incision site Call your doctor if you observe: Fever of 101 or Higher, Inability to urinate and Inability to have a bowel movement Suture Line Care: Avoid Pulling/Pushing and Avoid Pinching/Bending Change Dressing in: leave in place till F/U Remove Dressing in: do not remove dressing Cleanse incision/area with: Keep Dressing Clean & Dry Follow Up Care Please Follow Up With: Concepción Conway MD When: as scheduled next week Test Results: Test results from this visit will be discussed in further detail at your follow- up appointment, if applicable. Discharge Plan Admission Attending Provider: Concepción Conway Primary Care Provider: Melissa Laura Discharge Orders/Prescriptions Prescriptions: New hydrocodone-acetaminophen [hydrocodone-acetaminophen] 5-325 mg tablet 1 tab PO Q4H PRN PRN (Reason: Pain) 3 Days Qty: 10 0RF cephalexin [cephalexin] 500 mg capsule 500 mg PO Q12 3 Days Qty: 6 0RF Continued oxybutynin chloride 5 mg tablet 5 mg PO DAILY citalopram 20 mg tablet 20 mg PO DAILY Qty: 90 2RF simvastatin 20 mg tablet 20 mg PO QHS Qty: 90 3RF desmopressin 0.2 mg tablet 0.6 mg PO QHS folic acid 1 MG tablet 1 mg PO DAILY@0800 cholecalciferol (vitamin D3) [Vitamin D3] 1,000 UNIT tablet 1,000 unit PO MOFR multivitamin with folic acid [Thera] 1 TABLET tablet 1 tab PO DAILY methotrexate sodium 2.5 MG tablet 6 tab PO WE Rx Instructions: on wednesdays Enbrel 50 MG/ML syringe 25 mg SQ WESA Label Comments: states was not told to stop preop famotidine 20 MG tablet 40 mg PO DAILY aspirin 81 MG tablet,delayed release (DR/EC) 81 mg PO DAILY Label Comments: lidocaine-prilocaine 30 GM cream 1 applicatio TP DAILY PRN PRN (Reason: Not Specified) Rx Instructions: apply dime sized amount topically to port 30 minutes prior to planned access Systane Gel 10 GM gel 1 drp Left Eye QHS ascorbic acid (vitamin C) 1,000 mg Tablet 1 g PO DAILY alendronate 70 mg tablet 70 mg PO QWEEK Label Comments: take 1 tablet by mouth every week ON AN EMPTY STOMACH WITH 6-8 OZ... (REFER TO PRESCRIPTION NOTES). lidocaine-prilocaine 2.5-2.5 % cream 1 applic topical ONCE PRN (Reason: port access) 30 Days Qty: 30 2RF Referrals / Follow Up: Melissa Laura MD [Primary Care Provider] - Disposition Disposition (needs filled in before D/C Order can be placed): Home, Self Care
[2022-06-27 10:05] VITALS: BP 113/53; BP 118/53; PULSE 71; RESP 16; O2SAT 97
[2022-06-27 10:10] VITALS: BP 113/53; BP 115/53; PULSE 68; RESP 16; TEMP 36.6; O2SAT 99
--- NOTE | 2022-06-27 10:16 | OP.PCM_ITS ---
Report of Operation Date of Procedure: 06/27/22 Pre-Operative Diagnosis: Nocturia Post-Operative Diagnosis: Same Surgery/Procedure Performed:: Axonics stage I Surgeon: Concepción Conway Type of Anesthesia: MAC Description of Procedure: The patient is a 76-year-old female with refractory nocturia who has decided to proceed with Axonics stage I for management. Informed consent has been obtained. The patient was taken to the operating room and placed in a prone position on the operating room table. She was appropriately secured and padded. Anesthesia monitored the head, neck, airway, IV access and vital signs throughout the case. Once anesthesia was appropriate ministered, the patient was prepped and draped in usual sterile fashion. The S3 foramen was identified using fluoroscopy in AP and lateral positioning. The area of the skin overlying the sacrum was infiltrated with local anesthetic. The needle was then passed through the right S3 foramen as seen on fluoroscopy. With stimulation of the needle, there was good angela response and toe flexion. The guidewire was then placed through the needle which was removed. A skin incision was then made and the dilator was passed through the S3 foramen. The lead was then passed through the dilator and positioned using fluoroscopy. All 4 leads tested with good response. The sheath of the dilator was then removed leaving the lead in situ. A location for the pocket site was selected and infiltrated with local anesthetic. An incision was made using the knife and dissection of the pocket site was done using blunt dissection and cautery. Once hemostasis was achieved, the tunneling device was used to pull the lead from the insertion site into the pocket. The lead was then dried and inserted into the lead extension and s ecured using the torque wrench. Once again the tunneling device was used to tunnel the lead extension to the contralateral side. The lead extension was pulled into position and secured into the battery using Steri-Strips. This was done after the incisions were closed using 3-0 interrupted Vicryl followed by 4- 0 subcuticular and skin glue. A drain sponge followed by OpSite and cloth tape were then applied. The patient was then awakened and taken to the recovery room in good condition. There were no complications during this procedure. Grafts/Implants Used: Axonics lead and lead extension Complications None Admit VTE Documentation VTE Present on Admission: No VTE Mechan Device Prophylaxis: None VTE Pharm Prophylaxis ordered?: No Reason prophylaxis not ordered:: Treatment Not Indicated
[2022-06-27 10:43] VITALS: BP 113/53
== END 2022-06-27 10:57 | disposition home or self-care (01) ==
LOC: SDC 07:03 → AC 07:05
PROVIDERS: PCP Internal Medicine; Referring Provider Urology; Visit Provider Urology
PROC: (CPT 64581; principal; 2022-06-27 08:35)
DX: N39.46 Mixed incontinence (principal); M06.9 Rheumatoid arthritis, unspecified; R35.1 Nocturia; N30.10 Interstitial cystitis (chronic) without hematuria; E78.5 Hyperlipidemia, unspecified; Z79.82 Long term (current) use of aspirin; Z79.899 Other long term (current) drug therapy
CPT/HCPCS: 64581; 00630; 72170; 76000; J7120; J2405

== ENCOUNTER 2022-07-11 10:49 | Day surgery (SDC) | payer MEDICARE, OTHER, SELFPAY ==
[2022-07-11] VITALS (7 sets, daily range): BP systolic 75–131; BP diastolic 42–83; PULSE 63–84; RESP 16–18; TEMP 36.2–36.8; O2SAT 92–100; BMI 22.1
[2022-07-11] MEDS: Lactated Ringers 1,000 ML 15 ML IV (11:42)
--- NOTE | 2022-07-11 11:53 | DCINST_ITS ---
Discharge Instructions Diet Discharge Diet: No restrictions Activity Discharge Activity: May Shower (tomorrow) Dressing / Incision Call your doctor if your incision/area has: Continuous Slow Oozing, Sudden Increased Bleeding, Increased Pain/ Swelling, Increased Redness, Foul Smelling Discharge and Swelling at the incision site Call your doctor if you observe: Fever of 101 or Higher, Inability to urinate and Inability to have a bowel movement Suture Line Care: Avoid Pulling/Pushing and Avoid Pinching/Bending Additional Dressing/Incision Instructions:: do not pick at the skin glue, leave it to fall off as the incision heals Follow Up Care Please Follow Up With: Concepción Conway MD When: as scheduled Test Results: Test results from this visit will be discussed in further detail at your follow- up appointment, if applicable. Discharge Plan Admission Attending Provider: Concepción Conway Primary Care Provider: Melissa Laura Discharge Orders/Prescriptions Prescriptions: Continued oxybutynin chloride 5 mg tablet 5 mg PO DAILY citalopram 20 mg tablet 20 mg PO DAILY Qty: 90 2RF simvastatin 20 mg tablet 20 mg PO QHS Qty: 90 3RF desmopressin 0.2 mg tablet 0.6 mg PO QHS folic acid 1 MG tablet 1 mg PO DAILY@0800 cholecalciferol (vitamin D3) [Vitamin D3] 1,000 UNIT tablet 1,000 unit PO MOFR multivitamin with folic acid [Thera] 1 TABLET tablet 1 tab PO DAILY methotrexate sodium 2.5 MG tablet 6 tab PO WE Rx Instructions: on wednesdays Enbrel 50 MG/ML syringe 25 mg SQ WESA Label Comments: states was not told to stop preop famotidine 20 MG tablet 40 mg PO DAILY aspirin 81 MG tablet,delayed release (DR/EC) 81 mg PO DAILY Label Comments: lidocaine-prilocaine 30 GM cream 1 applicatio TP DAILY PRN PRN (Reason: Not Specified) Rx Instructions: apply dime sized amount topically to port 30 minutes prior to planned access Systane Gel 10 GM gel 1 drp Left Eye QHS ascorbic acid (vitamin C) 1,000 mg Tablet 1 g PO DAILY alendronate 70 mg tablet 70 mg PO QWEEK Label Comments: take 1 tablet by mouth every week ON AN EMPTY STOMACH WITH 6-8 OZ... (REFER TO PRESCRIPTION NOTES). hydrocodone-acetaminophen 5-325 mg tablet 1 tab PO Q4H PRN PRN (Reason: Pain) 3 Days Qty: 10 0RF cephalexin 500 mg capsule 500 mg PO Q12 3 Days Qty: 6 0RF lidocaine-prilocaine 2.5-2.5 % cream 1 applic topical ONCE PRN (Reason: port access) 30 Days Qty: 30 2RF Referrals / Follow Up: Melissa Laura MD [Primary Care Provider] - Disposition Disposition (needs filled in before D/C Order can be placed): Home, Self Care
--- NOTE | 2022-07-11 11:57 | PCM.OPRPT ---
Report of Operation Date of Procedure: 07/11/22 Pre-Operative Diagnosis: nocturia Post-Operative Diagnosis: same Surgery/Procedure Performed:: Axonics Stage 2 Surgeon: Concepción Conway Type of Anesthesia: MAC Description of Procedure: The patient is a 76-year-old female with greater than 50% improvement in her nocturia who presents for stage II Axonics procedure. Informed consent has been obtained. The patient was taken to the operating room and placed in a prone position on the operating room table. She was appropriately padded and secured. Her dressings were removed. Anesthesia monitored the head, neck, airway, IV access and vital signs throughout the case. Once anesthesia was appropriately administered, the patient was prepped and draped in usual sterile fashion. The skin surrounding the pocket incision was infiltrated with local anesthetic. The incision was reopened using a knife and hemostat. The Axonics lead was isolated and removed from the lead extension. The lead extension was then cut and removed from the contralateral exit site. At this time the pocket site was enlarged using a knife and Bovie cautery as well as blunt dissection. When the pocket was the correct size and hemostasis was achieved, the lead was dried and inserted into the battery and secured using the torque wrench. The battery was then placed into the pocket site which was closed with interrupted 3-0 Vicryl followed by 4-0 subcuticular closure with Monocryl. Skin glue was then applied. The patient was then awakened and taken to the recovery room in good condition. There were no complications during this procedure. Grafts/Implants Used: Axonics battery Complications none Admit VTE Documentation VTE Present on Admission: No VTE Mechan Device Prophylaxis: None Reason prophylaxis not ordered:: Treatment Not Indicated
[2022-07-11] MEDS: Cefazolin 2 GM in 0.9% Normal Saline 100 ML IV (12:02)
[2022-07-11] MEDS: Lidocaine 2% /Epi 1:100 (20ml) 20 ML VIAL (12:20)
== END 2022-07-11 14:03 | disposition home or self-care (01) ==
LOC: SDC 10:51 → AC 10:52
PROVIDERS: PCP Internal Medicine; Referring Provider Urology; Visit Provider Urology
PROC: (CPT 64590; principal; 2022-07-11 12:40)
DX: R35.1 Nocturia (principal); M06.9 Rheumatoid arthritis, unspecified; Z85.3 Personal history of malignant neoplasm of breast; E78.5 Hyperlipidemia, unspecified; N39.41 Urge incontinence
CPT/HCPCS: 64590; J7120; A4216; J2405

== ENCOUNTER → 2022-07-23 | Outpatient (CLI) | payer MEDICARE, OTHER, SELFPAY ==
--- NOTE | 2022-07-23 10:22 | BI_ITS ---
MAMMOGRAPHY - BILATERAL SCREENING REASON FOR EXAM: Female, 76 years old. Routine annual screening examination. PERTINENT HISTORY: Personal history of breast cancer. Prior left lumpectomy with chemotherapy and radiation therapy. TECHNIQUE: Digital bilateral breast almita (3D mammographic acquisition) in the CC and MLO projections. 2-D mediolateral oblique (MLO) and craniocaudad (CC) views of both breasts were obtained. CAD: Full Field Digital Mammography with Computer Added Detection was performed. COMPARISON: Comparison is made with prior study dated 07/20/2021 and 07/19/2020. FINDINGS: Breast Composition: The breasts are heterogeneously dense, which may obscure small masses. There are no dominant masses or suspicious calcifications. Stable appearance of the left breast secondary to prior left lumpectomy. There is residual postoperative scarring and deformity of the breast. A tissue clip marker is once again seen in the upper lateral aspect of the right breast. No other significant abnormalities are identified. There has been no significant change since the prior study. BI/SCRN MAMM (CAD)W/ALMITA BILAT IMPRESSION: Stable bilateral screening mammogram. Yearly follow-up mammogram recommended. (A) ASSESSMENT CATEGORY: BIRADS Category 2: Benign. A letter regarding these results will be sent to the patient by the facility within 30 days. Approximately 10% of breast cancers are not detected by mammography. A normal mammogram should not delay biopsy of a clinically suspicious abnormality. [id number] Electronically Signed: Ramiro Gilman MD at 11:11 EST ,
== END | disposition home or self-care (01) ==
LOC: OPBI 10:21
PROVIDERS: PCP Internal Medicine; Referring Provider Nurse Practitioner Family; Visit Provider Nurse Practitioner Family
DX: Z12.31 Encounter for screening mammogram for malignant neoplasm of breast (principal); Z92.21 Personal history of antineoplastic chemotherapy; Z85.3 Personal history of malignant neoplasm of breast
CPT/HCPCS: 77063; 77067

== ENCOUNTER → 2022-11-22 | Outpatient (CLI) | payer MEDICARE, OTHER, SELFPAY ==
--- NOTE | 2022-11-22 06:47 | RAD_ITS ---
STUDY: X-RAY - UNILATERAL RIBS ( RIGHT ) WITH CHEST REASON FOR EXAM: Female, 76 years old. Right sided rib pain TECHNIQUE - RIBS: 2 view(s) of the ribs. TECHNIQUE - CHEST: Single PA view of the chest. COMPARISON: None. FINDINGS - RIBS: There is severe demineralization of the osseous structures which diminishes the diagnostic sensitivity of this examination, however there is no visualized rib fracture. FINDINGS - CHEST: Satisfactory appearance of a right subclavian port The lungs are clear and expanded. There is no demonstrated pleural abnormality. Normal size heart. Normal mediastinum and inna. Normal visualized pulmonary arteries. There is atherosclerotic calcification of the aortic arch with tortuosity. There are diffuse degenerative changes of the visualized thoracic spine. Normal visualized ribs, clavicles, and shoulders. There is no demonstrated abnormality of the visualized soft tissue structures of the upper abdomen. RAD/Ribs Uni Min 3V w/PA Chest IMPRESSION: RIBS: No demonstrated acute displaced rib fracture, pleural thickening or pneumothorax CHEST: No acute pulmonary process Electronically Signed: Krishan Jeffries MD at 7:45 EDT ,
== END | disposition home or self-care (01) ==
PROVIDERS: PCP Internal Medicine; Referring Provider Internal Medicine; Visit Provider Internal Medicine
DX: R07.89 Other chest pain (principal)
CPT/HCPCS: 71101

== ENCOUNTER 2023-02-16 14:11 | Emergency (ER) | payer MEDICARE, OTHER, SELFPAY ==
[2023-02-16 14:12] VITALS: BP 140/53; PULSE 69; RESP 18; TEMP 36.6; O2SAT 100; BMI 23.6
[2023-02-16] MEDS: Morphine 4 MG/ML Syringe IV (14:21)
[2023-02-16] MEDS: Ondansetron 4 MG/2 ML Vial IV (14:21)
--- NOTE | 2023-02-16 14:21 | CT_ITS ---
STUDY: CT BRAIN WITHOUT CONTRAST REASON FOR EXAM: Female, 77 years old. head injury Individualized dose optimization techniques were used for this CT. TECHNIQUE: Transaxial CT imaging of the brain was performed without administration of intravenous contrast material. COMPARISON: MRI head March 21, 2021 FINDINGS: There are calcifications around the carotid artery. These are noted in the cavernous carotid arteries. Normal calvarium. There is no underlying fracture. Soft tissue swelling of the left forehead.Stable fatty lesion in the right frontal lobe. There is mild cerebral atrophy with widening of the extra-axial spaces and ventricular dilatation. There are areas of decreased attenuation within the white matter tracts of the supratentorial brain, consistent with microvascular disease changes. 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 Normal brainstem. There is mild cerebellar atrophy. There is no intracranial hemorrhage. There are no findings of an acute ischemic infarction. There is sinus disease. Degenerative changes of the mandibular condyles. ASPECTS Score for Acute Strokes: 05/20 CT/Brain/Head without Contrast IMPRESSION: There is no underlying fracture. Soft tissue swelling of the left forehead. Chronic involutional changes of the brain. Electronically Signed: Kennedy Huerta MD at 15:34 EDT ,
--- NOTE | 2023-02-16 14:21 | CT_ITS ---
We are attempting to reach an attending provider to discuss findings. An addendum with communication details will be sent when the communication is complete. EXAM: CT SPINE - CERVICAL WITHOUT IV REASON FOR EXAM: Female, 77 years old. NECK PAIN neck pain HISTORY: NECK PAIN neck pain Individualized dose optimization techniques were used for this CT. TECHNIQUE: Multiplanar images were obtained of the cervical spine. IV contrast was not utilized. COMPARISON: 03/16/21 mri cspine. FINDINGS: The vertebral bodies do maintain their height. The odontoid process is intact. Fracture of the anterior arch of C1.No pre-vertebral soft tissue swelling is seen. The intravertebral disc height is lost. There are scattered lymph nodes in the neck. There are degenerative changes of the osseous structures. There is bilateral facet arthropathy. There are scattered levels of foraminal stenosis. There are vascular calcifications. Degenerative changes of the mandibular condyles. CT/Spine Cervical without Contras IMPRESSION: Degenerative changes of the cervical spine. Fracture of the anterior arch of C1. This is age indeterminate. Electronically Signed: Kennedy Huerta MD at 15:36 EDT ,
--- NOTE | 2023-02-16 14:23 | EDS_ITS ---
HPI <LUIZ Jones - Last Filed: 02/16/23 15:57> History of Present Illness Chief Complaint: Lower Extremity Injury Narrative Narrative: Patient tripped on a step going up to her attic and landed on her right hip and has a deformity and was brought in by EMS. She also struck her head but denies LOC. No blood thinners. She denies weakness numbness or tingling in her extremities. No headache, nausea, or vomiting. PFSH <LUIZ Jones - Last Filed: 02/16/23 15:57> [facility] Medical History Anxiety and depression Arthritis Balance problems Bladder ulcer Breast cancer Cancer Debility Depression Dysuria Fatigue Former smoker Gastric reflux Health care maintenance Hepatitis High cholesterol History of breast cancer History of echocardiogram History of hiatal hernia History of stress test Hyperlipidemia Interstitial cystitis med port placement Mononucleosis MRSA infection Neoplasm of unspecified behavior of bladder Nocturia Non-smoker Osteoporosis Pneumonia Port-A-Cath in place Post-menopausal Rheumatoid arthritis Rheumatoid arthritis pain Right-sided chest wall pain Screening for breast cancer Urinary frequency Wears glasses Wears partial dentures Home Medications cholecalciferol (vitamin D3) 25 mcg (1,000 unit) tablet (Vitamin D3) 1,000 unit PO MOFR 09/01/15 [History Last Taken 02/16/23] folic acid 1 mg tablet 1 mg PO DAILY@0800 supplement 09/01/15 [History Last Taken 02/16/23] multivitamin with folic acid 400 mcg tablet (Thera) 1 tab PO DAILY 09/01/15 [History Last Taken 02/16/23] etanercept 50 mg/mL (1 mL) subcutaneous syringe (Enbrel) 25 mg SQ WESA RA 01/21/17 [History Last Taken 02/12/23] methotrexate sodium 2.5 mg tablet 6 tab PO WE RA 01/21/17 [History Last Taken 02/12/23] aspirin 81 mg tablet,delayed release 81 mg PO DAILY heart health 03/10/18 [History Last Taken 02/16/23] ascorbic acid (vitamin C) 1,000 mg tablet 1 g PO DAILY SUPPLEMENT 03/21/21 [History Last Taken 02/16/23] desmopressin 0.2 mg tablet 0.6 mg PO QHS 04/30/22 [History Last Taken 02/15/23] citalopram 20 mg tablet 20 mg PO DAILY #90 tabs 08/15/22 [Rx Last Taken 02/16/23] simvastatin 20 mg tablet See Rx Instructions .Route .COMPLEX #90 tabs 11/08/22 [Rx Last Taken 02/15/23] Allergy/AdvReac Type Severity Reaction Status Date / Time vancomycin Allergy RASH, Verified 02/16/23 14:16 ITCHING, REDNESS Family History Father Diabetes Prostate CA Mother Arthritis Lupus Other Cancer Heart disease Parkinsons disease Surgical History History of bladder surgery History of bladder surgery History of cystoscopy Hx of breast lump removal Hx of colonoscopy Previous back surgery Social History household members: spouse Smoking Status: Former smoker how long ago did patient quit smoking: Quit > 20 alcohol intake: never substance use type: does not use ROS <LUIZ Jones - Last Filed: 02/16/23 15:57> ROS ED ROS Narrative Eyes: Negative for visual change. CVS: Negative for chest pain. Respiratory: Negative for shortness of breath. GI: Negative for nausea, vomiting. Neuro: Negative for headache, motor/sensory dysfunction. Skin: Negative for wound. Musc: Positive for right hip pain, swelling, trauma. EXAM <LUIZ Jones - Last Filed: 02/16/23 15:57> Physical Exam Narrative Exam Narrative: CONST: Patient sitting in no acute distress. EYES: Normal inspection. ENT: Head normocephalic atraumatic, no raccoon eyes or brown sign, no nasal septal hematoma, no CSF otorrhea or rhinorrhea. NECK: Normal inspection. No midline spinal tenderness, no step off or crepitus. RESP: No respiratory distress, CTAB. Chest wall nontender. CVS: Regular rate and rhythm, no murmur, no gallop. ABD: Soft and nontender, no guarding or rebound, nondistended. Pelvis stable. SKIN: Color normal, no rash, warm, dry, intact. EXTREMITIES: Right hip deformity and tenderness. 2+ radial and DP pulses. NEURO: Oriented x4. PSYCH: Normal affect. Const Vital Signs: 02/16/23 16:14 Pulse Rate 64 Respiratory Rate 16 Blood Pressure 135/83 H Blood Pressure Mean 100 Pulse Ox 99 <Dr. Emery Haywood DO - Last Filed: 02/17/23 15:05> Physical Exam Const Vital Signs: 02/16/23 16:14 Pulse Rate 64 Respiratory Rate 16 Blood Pressure 135/83 H Blood Pressure Mean 100 Pulse Ox 99 MDM <LUIZ Jones - Last Filed: 02/16/23 15:57> [facility] Narrative Medical decision making narrative: History gathered from: Patient and EMS Patient had a mechanical fall onto her right hip. Also struck her head with no LOC and no thinners. Has an obvious right hip deformity with distal pulses intact. No other injuries noted; neurologically intact. ED attending interpretation of the right hip x-ray shows a comminuted right intertrochanteric fracture. CT brain is negative. CT cervical spine shows fracture of the anterior arch of C1 which is age-indeterminate but new from 2020. Patient was placed in a c-collar and remains neurologically intact. She requires transfer to a trauma facility and her preference is [facility]. Case was discussed with the transfer line and accepted under the ED physician, Dr. Miranda Sims. Patient was transferred in stable condition. Differential: Hip fracture or dislocation, pelvic fracture 35 minutes of critical care time was consumed by evaluation of the patient, treatment and planning, discussion with consultants. Lab Data Attestation: I reviewed the patient's lab results. Labs: Laboratory Results - last 24 hr 02/16/23 02/16/23 15:00 15:15 PT 13.5 INR 1.0 Antibody Screen NEGATIVE Radiography Diagnostic Testing: Clinical Impression(s) from Imaging Studies Brain CT 02/16/23 14:21 IMPRESSION: There is no underlying fracture. Soft tissue swelling of the left forehead. Chronic involutional changes of the brain. Electronically Signed: Kennedy Huerta MD at 15:34 EDT , Cervical Spine CT 02/16/23 14:21 IMPRESSION: Degenerative changes of the cervical spine. Fracture of the anterior arch of C1. This is age indeterminate. Electronically Signed: Kennedy Huerta MD at 15:36 EDT , ADDENDUM: 02/16/23 1545 IMPRESSION: Degenerative changes of the cervical spine. Fracture of the anterior arch of C1. This is age indeterminate. N.B. : The above Results were Read Back by Kennedy Huerta MD to LUIZ Jones, and understanding confirmed on 02/16/2023 15:38:36 (ET). Electronically Signed: Kennedy Huerta MD at 15:36 EDT , ADDENDUM: 02/16/23 1550 IMPRESSION: Degenerative changes of the cervical spine. Fracture of the anterior arch of C1. This is age indeterminate. N.B. : The above Results were Read Back by Kennedy Huerta MD to LUIZ Jones, and understanding confirmed on 02/16/2023 15:44:03 (ET). Electronically Signed: Kennedy Huerta MD at 15:36 EDT , ADDENDUM: 02/16/23 1635 IMPRESSION: undefined Chest X-Ray 02/16/23 14:33 IMPRESSION: There are no acute findings. Electronically Signed: Kennedy Huerta MD at 15:12 EDT , Hip/Pelvis X-Ray 02/16/23 14:33 IMPRESSION: Comminuted and impacted right intertrochanteric fracture. Lesser trochanter is displaced medially. Electronically Signed: Kennedy Huerta MD at 15:13 EDT Reading Location ID and State: [facility] / [place] , Service support , ED attending interpretation of 1 view chest x-ray shows normal heart size, no acute infiltrate, edema, or effusion. EKG Initial EKG: Attestation: I personally reviewed and interpreted this EKG as follows: Interpretation: No Acute Injury Pattern Comments: Most of the chest leads appear to be normal sinus rhythm at 61 bpm, machine read as junctional rhythm but I think this is likely NSR <Dr. Emery Haywood, DO - Last Filed: 02/17/23 15:05> MDM MDM Narrative Medical decision making narrative: History gathered from: Patient and EMS Patient had a mechanical fall onto her right hip. Also struck her head with no LOC and no thinners. Has an obvious right hip deformity with distal pulses intact. No other injuries noted; neurologically intact. ED attending inte rpretation of the right hip x-ray shows a comminuted right intertrochanteric fracture. CT brain is negative. CT cervical spine shows fracture of the anterior arch of C1 which is age-indeterminate but new from 2020. Patient was placed in a c-collar and remains neurologically intact. She requires transfer to a trauma facility and [facility]. Case was discussed with the transfer line and accepted under the ED physician, Dr. Miranda Sims. Patient was transferred in stable condition. Differential: Hip fracture or dislocation, pelvic fracture, intracranial hemorrhage, C-spine fracture This patient was seen with a PA/SOFTWARE DEVELOPER MANAGER Individually assessed they patient including history and physical. I have reviewed everything on the chart that is available and agree with the documentation provided by the PA/SOFTWARE DEVELOPER MANAGER including discussion about the assessment, treatment plan, discussion, and return precautions. Patient has significant fracture of the right hip with comminution and displacement. She is also found to have a C1 fracture which is age- indeterminate, but the patient states she is never had a C-spine fracture and it is new from previous imaging. She is neurovascular intact. Discussed with [facility] who accepted the patient in transfer. She was transferred on a backboard and with a c-collar. 35 minutes of critical care time was consumed by evaluation of the patient, treatment and planning, discussion with consultants. Lab Data Labs: Laboratory Results - last 24 hr 02/16/23 02/16/23 15:00 15:15 PT 13.5 INR 1.0 Antibody Screen NEGATIVE Radiography Diagnostic Testing: Clinical Impression(s) from Imaging Studies Brain CT 02/16/23 14:21 IMPRESSION: There is no underlying fracture. Soft tissue swelling of the left forehead. Chronic involutional changes of the brain. Electronically Signed: Kennedy Huerta MD at 15:34 EDT , Cervical Spine CT 02/16/23 14:21 IMPRESSION: Degenerative changes of the cervical spine. Fracture of the anterior arch of C1. This is age indeterminate. Electronically Signed: Kennedy Huerta MD at 15:36 EDT , ADDENDUM: 02/16/23 1545 IMPRESSION: Degenerative changes of the cervical spine. Fracture of the anterior arch of C1. This is age indeterminate. N.B. : The above Results were Read Back by Kennedy Huerta MD to LUIZ Jones, and understanding confirmed on 02/16/2023 15:38:36 (ET). Electronically Signed: Kennedy Huerta MD at 15:36 EDT , ADDENDUM: 02/16/23 1550 IMPRESSION: Degenerative changes of the cervical spine. Fracture of the anterior arch of C1. This is age indeterminate. N.B. : The above Results were Read Back by Kennedy Huerta MD to LUIZ Jones, and understanding confirmed on 02/16/2023 15:44:03 (ET). Electronically Signed: Kennedy Huerta MD at 15:36 EDT , ADDENDUM: 02/16/23 1635 IMPRESSION: undefined Chest X-Ray 02/16/23 14:33 IMPRESSION: There are no acute findings. Electronically Signed: Kennedy Huerta MD at 15:12 EDT , Hip/Pelvis X-Ray 02/16/23 14:33 IMPRESSION: Comminuted and impacted right intertrochanteric fracture. Lesser trochanter is displaced medially. Electronically Signed: Kennedy Huerta MD at 15:13 EDT , Discharge Plan Triage Chief Complaint: Lower Extremity Injury ED Midlevel Provider: Yudith Christine ED Provider: Emery Haywood Dx/Rx/DC Orders Prescriptions: No Action desmopressin 0.2 mg tablet 0.6 mg PO QHS folic acid 1 MG tablet 1 mg PO DAILY@0800 cholecalciferol (vitamin D3) [Vitamin D3] 1,000 UNIT tablet 1,000 unit PO MOFR multivitamin with folic acid [Thera] 1 TABLET tablet 1 tab PO DAILY methotrexate sodium 2.5 MG tablet 6 tab PO WE Rx Instructions: on wednesdays Enbrel 50 MG/ML syringe 25 mg SQ WESA Patient Comments: states was not told to stop preop aspirin 81 MG tablet,delayed release (DR/EC) 81 mg PO DAILY Patient Comments: ascorbic acid (vitamin C) 1,000 mg Tablet 1 g PO DAILY citalopram 20 mg tablet 20 mg PO DAILY Qty: 90 3RF simvastatin 20 mg tablet See Rx Instructions .ROUTE .COMPLEX Qty: 90 3RF Dose Instruction: TAKE 1 TAB BY MOUTH AT BEDTIME FOR CHOLESTEROL Rx Instructions: TAKE 1 TAB BY MOUTH AT BEDTIME FOR CHOLESTEROL Primary Care Provider: Melissa Laura Referrals: Melissa Laura MD [Primary Care Provider] - Disposition Disposition: Acute Care Hospital Discharge Location: [facility] Discharge Date/Time: 02/16/23 16:45
--- NOTE | 2023-02-16 14:33 | RAD_ITS ---
STUDY: XR Chest 1 View 02/16/2023 2:27 PM REASON FOR EXAM: Female, 77 years old. pre op COMPARISON: 11/22/2022 TECHNIQUE: XR Chest 1 View FINDINGS: There is no demonstrated pleural abnormality. There is a right Port-A-Cath and/or mediport in place. The tip is in the superior vena cava. Enlarged heart size. Normal mediastinum. Normal inna. Prominent appearing increased interstitial lung markings. Normal visualized pulmonary arteries. There is atherosclerotic calcification of the aortic arch with tortuosity. There are diffuse degenerative changes of the visualized thoracic spine. There is degenerative osteoarthritis of the bilateral shoulders. There is no demonstrated abnormality of the visualized soft tissue structures of the upper abdomen. RAD/Chest 1 View (Portable) IMPRESSION: There are no acute findings. Electronically Signed: Kennedy Huerta MD at 15:12 EDT ,
--- NOTE | 2023-02-16 14:33 | RAD_ITS ---
EXAM: XR RIGHT HIP WITH PELVIS WHEN PERFORMED, 2 OR 3 VIEWS CLINICAL INDICATION: pain TECHNIQUE: Two or three views of the right hip with pelvis when performed. COMPARISON: No relevant prior studies available. FINDINGS: BONES/JOINTS: Comminuted and impacted right intertrochanteric fracture. Lesser trochanter is displaced medially. Degenerative findings in the lumbar spine. No destructive or sclerotic lesions. Note that overlapping bowel shadows may however obscure fine detail. Sacroiliac joint is unremarkable. No widening of the pubic symphysis. SOFT TISSUES: Unremarkable. No soft tissue swelling or gas. TUBES, LINES AND DEVICES: Electronic device in the region overlying the right hip. RAD/HIP, UNI W/ Pelvis 2-3 Views IMPRESSION: Comminuted and impacted right intertrochanteric fracture. Lesser trochanter is displaced medially. Electronically Signed: Kennedy Huerta MD at 15:13 EDT Reading Location ID and State: [facility] / [place] , Service support ,
[2023-02-16 14:35] LABS: Absolute Lymphocyte Count 2.14 X10^3/uL (0.83-4.51); Absolute Neutrophil Count 3.1 X10^3/uL (2.0-7.7); Basophil# 0.03 X10^3/uL; Basophil% 0.5 % (0-1); Eosinophils% 1.6 % (0-5); Hematocrit 38.1 % (37-47); Hemoglobin 12.7 g/dL (12.0-15.0); Lymphocyte # 2.14 X10^3/ul (0.83-4.51); Lymphocyte % 34.9 % (19-41); Mean Corp Hgb Conc 33.3 g/dL (32-36); Mean Corpuscular Hgb 30.8 pg (27.0-32.0); Mean Corpuscular Volume 92.3 fL (81-99); Mean Platelet Vol. 9.9 fl (6.2-12.0); Monocyte# 0.72 X10^3/uL; Monocyte% 11.7 % (0-10); NRBC Flagged by Analyzer 0 % (0-5); Neutrophil # 3.09 X10^3/uL (2.7-7.7); Neutrophil % 50.5 % (47-70); Platelet Count 177 K/mm3 (150-450); RBC Distribution Width CV 13.2 % (11.6-14.6); RBC Distribution Width SD 44.3 fl (35.1-43.9); Red Blood Count 4.13 M/mm3 (4.2-5.4); White Blood Count 6.1 K/mm3 (4.4-11.0)
--- NOTE | 2023-02-16 14:37 | EKG12_ITS ---
Test Reason : FALL Blood Pressure : / mmHG Vent. Rate : 061 BPM Atrial Rate : 000 BPM P-R Int : 000 ms QRS Dur : 068 ms QT Int : 466 ms P-R-T Axes : 000 029 059 degrees QTc Int : 469 ms Normal sinus rhythm Low voltage QRS Abnormal ECG Confirmed by KEIRA URIAS, AGUILAR ([id number]), editor managing newspaper KINZA GÓMEZ ([id number]) on 02/18/2023 8:28:44 AM Referred By: Confirmed By:AGUILAR CROCKETT MD
[2023-02-16 14:48] LABS: Anion Gap 8 (5-15); BUN 25 mg/dL (7-18); BUN/Creat Ratio 29.2 RATIO (10-20); Calcium,Total 8.6 mg/dL (8.5-10.1); Chloride 107 mmol/L (98-107); Creatinine, Serum 0.86 mg/dL (0.55-1.02); EST Glomerular Filtration Rate 69 mL/min (>60); Est Glom Filt Rate - Afr Amer 83 mL/min (>60); Estimated Creatinine Clearance 41.99 ml/min; Glucose 90 mg/dL (74-106); Potassium 3.8 mmol/L (3.5-5.1); Sodium Level 137 mmol/L (136-145)
[2023-02-16 14:52] VITALS: BP 140/53; PULSE 74; RESP 16; O2SAT 99
[2023-02-16] MEDS: 0.9% Normal Saline 1,000 ML 999 ML IV (14:58)
[2023-02-16] MEDS: HYDROmorphone 0.5 MG/0.5 ML SYRINGE IV ×2 (14:59→15:56)
[2023-02-16 15:31] LABS: Prothrombin Time (Protime)PT. 13.5 SECONDS (11.7-14.9)
--- NOTE | 2023-02-16 16:00 | NURSING ---
CALLED PHYSICIANS TO SET UP TRANSPORT TO [facility] A TRAUMA TRANSFER- ER TO ER-- VIA ALS -- ETA GIVEN 30 MINUTES
[2023-02-16 16:14] VITALS: BP 135/83; PULSE 64; RESP 16; O2SAT 99
== END 2023-02-16 16:45 | disposition short-term general hospital (02) ==
LOC: ED 15:22
PROVIDERS: Physician Assistant; Emergency Provider Student in an Organized Health Care Education/Training Program; PCP Internal Medicine; Visit Provider Student in an Organized Health Care Education/Training Program
DX: S72.141A Displaced intertrochanteric fracture of right femur, initial encounter for closed fracture (principal); S12.090A Other displaced fracture of first cervical vertebra, initial encounter for closed fracture; W10.8XXA Fall (on) (from) other stairs and steps, initial encounter; Y92.008 Other place in unspecified non-institutional (private) residence as the place of occurrence of the external cause; Y93.01 Activity, walking, marching and hiking; Y99.8 Other external cause status; Z87.891 Personal history of nicotine dependence
CPT/HCPCS: 70450; 71045; 72125; 73502; 80048; 85025; 85610; 86850; 86900; 86901; 93005; 96361; 96374; 96375; 96376; 99285; J7030; A4216; J2405

== ENCOUNTER 2023-02-19 18:30 | Inpatient (IN) | payer MEDICARE, OTHER, SELFPAY ==
[2023-02-19 18:48] VITALS: BP 140/94; PULSE 75; RESP 16; TEMP 36.3; O2SAT 97
[2023-02-19 20:12] VITALS: BMI 22.1
[2023-02-19] MEDS: oxyCODONE 5 MG Tablet 10 MG PO (21:33)
[2023-02-19 22:00] VITALS: O2SAT 97
[2023-02-19] MEDS: Atorvastatin Calcium 10 MG Tablet PO (22:13)
[2023-02-19] MEDS: Senna/Docusate Sodium 1 Tablet 2 TABLET PO (22:13)
[2023-02-19] MEDS: Acetaminophen 500 MG Tablet 1000 MG PO (22:13)
[2023-02-20] MEDS: oxyCODONE 5 MG Tablet 10 MG PO ×2 (03:40→09:57)
[2023-02-20] MEDS: Acetaminophen 500 MG Tablet 1000 MG PO ×3 (05:37→19:39)
[2023-02-20 06:09] LABS: Absolute Lymphocyte Count 1.11 X10^3/uL (0.83-4.51); Absolute Neutrophil Count 4.1 X10^3/uL (2.0-7.7); Basophil# 0.03 X10^3/uL; Basophil% 0.5 % (0-1); Eosinophils% 4.7 % (0-5); Hematocrit 29.7 % (37-47); Hemoglobin 9.7 g/dL (12.0-15.0); Lymphocyte # 1.11 X10^3/ul (0.83-4.51); Lymphocyte % 17.5 % (19-41); Mean Corp Hgb Conc 32.7 g/dL (32-36); Mean Corpuscular Hgb 30.7 pg (27.0-32.0); Mean Platelet Vol. 9.9 fl (6.2-12.0); Monocyte# 0.79 X10^3/uL; Monocyte% 12.5 % (0-10); NRBC Flagged by Analyzer 0 % (0-5); Neutrophil # 4.09 X10^3/uL (2.7-7.7); Neutrophil % 64.5 % (47-70); Platelet Count 184 K/mm3 (150-450); RBC Distribution Width CV 13.7 % (11.6-14.6); RBC Distribution Width SD 46.8 fl (35.1-43.9); Red Blood Count 3.16 M/mm3 (4.2-5.4); White Blood Count 6.3 K/mm3 (4.4-11.0)
[2023-02-20 06:53] LABS: ALB/GLOB Ratio 0.8 RATIO (0.9-2.4); AST(SGOT) 21 U/L (15-37); Alanine Aminotransfer ALT/SGPT 16 U/L (13-56); Albumin, Serum 2.6 g/dL (3.2-5.0); Alkaline Phosphatase 62 U/L (45-117); Anion Gap 4 (5-15); BUN 15 mg/dL (7-18); BUN/Creat Ratio 23.6 RATIO (10-20); Calcium,Total 8.8 mg/dL (8.5-10.1); Chloride 107 mmol/L (98-107); Creatinine, Serum 0.64 mg/dL (0.55-1.02); EST Glomerular Filtration Rate 97 mL/min (>60); Est Glom Filt Rate - Afr Amer 117 mL/min (>60); Estimated Creatinine Clearance 42.15 ml/min; Globulin 3.4 g/dL (2.2-4.2); Glucose 109 mg/dL (74-106); Magnesium 1.8 mg/dL (1.6-2.6); Phosphorus 3.6 mg/dL (2.5-4.9); Potassium 4.2 mmol/L (3.5-5.1); Sodium Level 139 mmol/L (136-145)
[2023-02-20 08:04] VITALS: BP 123/63; PULSE 78; RESP 18; TEMP 36.6; O2SAT 95
[2023-02-20] MEDS: Polyethylene Glycol 3350 17 GM PACKET PO (09:24)
[2023-02-20] MEDS: Citalopram 20 MG Tablet PO (09:24)
[2023-02-20] MEDS: Senna/Docusate Sodium 1 Tablet 2 TABLET PO ×2 (09:24→19:39)
[2023-02-20] MEDS: Famotidine 20 MG Tablet PO (09:24)
[2023-02-20] MEDS: Folic Acid 1 MG Tablet PO (09:25)
[2023-02-20] MEDS: Multivitamins,Therapeutic Tablet 1 TABLET PO (09:25)
[2023-02-20] MEDS: Enoxaparin 40 MG/0.4 ML Syringe SC (09:27)
[2023-02-20] MEDS: Aspirin E.C. 81 MG Tablet PO (09:27)
[2023-02-20] MEDS: Ascorbic Acid 500 MG Tablet 1000 MG PO (09:28)
[2023-02-20 10:03] VITALS: O2SAT 97
--- NOTE | 2023-02-20 11:29 | PCM.HP.STD ---
[facility] Date of Admission: 02/19/23 Date of Service: 02/20/23 Chief Complaint: Debility due to a fall resulting in a C1 anterior arch fracture and a comminuted intertrochanteric fracture of the right femur. [facility] Narrative CHARMAINE DÍAZ, is a 77 YO F with a past medical history of anxiety/depression/dysthymia, breast cancer ([address] Martin yearly), GERD, large hiatal hernia, history of hepatitis, hyperlipidemia, interstitial cystitis, bladder ulcers ( sees Dr. Conway - possibly due to Enbrel), bladder neoplasm, osteoporosis, diverticulosis, cholelithiasis, internal hemorrhoids and rheumatoid arthritis (diagnosed in her 40's) who presented to the emergency department at [facility] on 02/16/2023 stating that she had tripped on a step walking up a ladder to her attic and then fell backwards down 2 steps and landed on her right hip. The hip had a deformity and she was unable to bear weight. CT brain showed no underlying fracture. There was soft tissue swelling on the left forehead. CT of the cervical spine showed a fracture of the anterior arch of C1 with no prevertebral soft tissue swelling seen. There was bilateral facet arthropathy and scattered levels of foraminal stenosis. Pelvis and right hip x-ray showed a comminuted and impacted right intertrochanteric fracture with displacement of the lesser trochanter medially. She was transferred to [facility] to be seen by neurosurgery and orthopedic surgery. Neurosurgery thought the C1 anterior arch fracture was possibly chronic but recommended full-time use of a cervical collar for 2 weeks until her outpatient visit with neurosurgery. Dr. Bo took her to surgery on 02/17/2023 for repair of the right hip fracture with an intramedullary nail. Postoperatively she was seen by PT/OT and acute rehab was recommended at discharge. While at [facility] she had a CTA of her head/neck that showed no large vessel occlusion or high-grade arterial stenosis. There was an age-indeterminate fracture of the anterior arch of C1 but a relative lack of adjacent soft tissue swelling which was more consistent with chronic fracture. There was a 1.1 cm peripherally calcified nodule in the left thyroid. All lab drawn this morning was personally reviewed. White blood cell count is normal. Hemoglobin is 9.7, down from 12.7 on 02/16/2023. Platelets are within normal limits. B MP is unremarkable and the creatinine is 0.64 with a BUN of 15. Estimated creatinine clearance is 42.15. Calcium, phosphorus and magnesium are all within normal limits. LFTs are normal. Vitamin D within the past year was normal at 60.3. TSH and T4 were normal in April 2022. Afebrile VSS Maintaining appropriate oxygen saturation on RA Oral intake is good Weight is 123 pounds. Discussed with nursing - no problems that need addressed Reviewed the PT/OT/ST notes Medication list reviewed. [facility] Medical History (Updated 02/20/23 @ 15:[address] Yuli Hernandez, DO) Anxiety and depression Arthritis Balance problems Bladder ulcer Breast cancer Cancer Debility Depression Dysuria Fatigue Former smoker Gastric reflux Health care maintenance Hepatitis High cholesterol History of breast cancer History of echocardiogram History of hiatal hernia History of stress test Hyperlipidemia Interstitial cystitis med port placement Mononucleosis MRSA infection Neoplasm of unspecified behavior of bladder Nocturia Non-smoker Osteoporosis Pneumonia Port-A-Cath in place Post-menopausal Rheumatoid arthritis Rheumatoid arthritis pain Right-sided chest wall pain Screening for breast cancer Urinary frequency Wears glasses Wears partial dentures Home Medications cholecalciferol (vitamin D3) 25 mcg (1,000 unit) tablet (Vitamin D3) 1,000 unit PO MOFR supplement 09/01/15 [History Last Taken 02/16/23] folic acid 1 mg tablet 1 mg PO DAILY@0800 supplement 09/01/15 [History Last Taken 02/16/23] multivitamin with folic acid 400 mcg tablet (Thera) 1 tab PO DAILY supplement 09/01/15 [History Last Taken 02/16/23] etanercept 50 mg/mL (1 mL) subcutaneous syringe (Enbrel) 50 mg SQ ., FRI RA 01/21/17 [History Last Taken 02/12/23] methotrexate sodium 2.5 mg tablet 6 tab PO WE RA 01/21/17 [History Last Taken 02/12/23] aspirin 81 mg tablet,delayed release 81 mg PO DAILY heart health 03/10/18 [History Last Taken 02/16/23] ascorbic acid (vitamin C) 1,000 mg tablet 1 g PO DAILY SUPPLEMENT 03/21/21 [History Last Taken 02/16/23] desmopressin 0.2 mg tablet 0.1 mg PO QHS urination 04/30/22 [History Last Taken 02/15/23] citalopram 20 mg tablet 20 mg PO DAILY depression #90 tabs 08/15/22 [Rx Last Taken 02/16/23] simvastatin 20 mg tablet See Rx Instructions .Route .COMPLEX cholesterol #90 tabs 11/08/22 [Rx Last Taken 02/15/23] acetaminophen 500 mg tablet (Acetaminophen Pain Relief) 1,000 mg PO Q8H pain 1-10 02/19/23 [History Last Taken Unknown] enoxaparin 40 mg/0.4 mL subcutaneous syringe 40 mg subcut DAILY blood thinner 02/19/23 [History Last Taken Unknown] famotidine 20 mg tablet (Pepcid) 20 mg PO BID heartburn 02/19/23 [History Last Taken Unknown] oxycodone 5 mg capsule 10 mg PO Q6H PRN pain 02/19/23 [History Last Taken Unknown] polyethylene glycol 3350 17 gram oral powder packet 17 g PO DAILY laxative 02/19/23 [History Last Taken Unknown] sennosides 8.6 mg-docusate sodium 50 mg tablet (Senna with Docusate Sodium) 2 tab-cap PO BID laxative 02/19/23 [History Last Taken Unknown] Allergy/AdvReac Type Severity Reaction Status Date / Time vancomycin Allergy RASH, Verified 02/16/23 14:16 ITCHING, REDNESS Family History Father Diabetes Prostate CA Mother Arthritis Lupus Other Cancer Heart disease Parkinsons disease Surgical History (Updated 02/20/23 @ 15:[address] Yuli Hernandez DO) History of bladder surgery History of bladder surgery History of cystoscopy Hx of breast lump removal Hx of colonoscopy Previous back surgery Social History (Updated 02/20/23 @ 14:[address] Yuli Hernandez DO) household members: spouse current occupational status: retired Smoking Status: Never smoker alcohol intake: never substance use type: does not use ROS Constitutional Constitutional: Reports weakness; Denies anorexia, change in weight, chills, fatigue, fever(s) or night sweats Eyes Eyes: Denies blurry vision, change in vision, eye pain or loss of vision ENT HEENT: Reports abnormal hearing and hearing loss; Denies dysphagia, headache(s), nasal congestion or sore throat Cardiovascular Cardiovascular: Denies chest pain, dyspnea on exertion, edema, lightheadedness, orthopnea, palpitations, paroxysmal nocturnal dyspnea or syncope Respiratory/Chest Respiratory/Chest: Denies cough, dyspnea, shortness of breath at rest, shortness of breath with exertion or wheezing Gastrointestinal Gastrointestinal: Reports constipation, hemorrhoids and other Details: GERD with a large HH - she takes OTC Prilosec ; Denies abdominal pain, diarrhea, dyspepsia, hematemesis, hematochezia, nausea or vomiting Genitourinary Genitourinary: Denies dysuria, hematuria, nocturia, urinary frequency, urinary hesitancy, urinary incontinence or urinary urgency Musculoskeletal Musculoskeletal: Reports difficulty walking, joint pain, joint swelling, stiffness and other Details: R hip pain due to R hip fx ; Denies back pain or neck pain Integumentary Integumentary: Reports other Details: incision R hip for IM nail ; Denies acne, alopecia, hirsutism, jaundice, non-healing lesions or rash Neurologic Neurologic: Denies confusion, disequilibrium, dizziness, focal weakness, headache(s), paresthesias, seizures or tremor(s) Psychiatric Psychiatric: Reports anxiety, depression, hallucinations and other Details: some hallucinations with Oxycodone. ; Denies homicidal ideation or suicidal ideation Endocrine Endocrinology: Denies change in body appearance, polydipsia or polyuria Hematologic/Lymphatic Hematologic/Lymphatic: Denies easy bleeding, easy bruising or lymphadenopathy Allergic/Immunologic Allergic/Immunologic: Denies rhinitis, eczemia or asthma Vital Signs Vital Signs Vital Signs: 02/19/23 18:48 02/19/23 22:00 02/20/23 08:04 Temperature 97.3 F L 97.9 F Temperature Source Temporal Temporal Pulse Rate 75 78 Respiratory Rate 16 18 Respiratory Effort Normal Non-Labored Blood Pressure 140/94 H 123/63 H Blood Pressure Mean 109 83 Blood Pressure Source Monitor Monitor Blood Pressure Position Semi-Fowlers Semi-Fowlers Blood Pressure Location Right Arm Right Arm Pulse Ox 97 97 95 Oxygen Delivery Method Room Air Room Air Room Air 02/20/23 10:03 Temperature Temperature Source Pulse Rate Respiratory Rate Respiratory Effort Blood Pressure Blood Pressure Mean Blood Pressure Source Blood Pressure Position Blood Pressure Location Pulse Ox 97 Oxygen Delivery Method Room Air Weight Weight: 123 lb Body Mass Index (BMI) 22.1 Physical Exam Const alert, oriented x3 and no apparent distress Constitutional Narrative: Making good eye contact, appropriate. Appears to be in pain. Has ice on the R hip now. General Appearance: cooperative, well kempt and well developed HEENT HEENT Narrative: Dry mucous membranes Head and Scalp: normocephalic and atraumatic Eyes PERRL, EOMs intact bilaterally, conjunctivae normal and no scleral icterus Neck Neck Narrative: Cannot examine the neck because she has a cervical collar on that is not to be removed. Chest Chest: symmetrical chest wall rise Resp normal respiratory effort, no use of accessory muscles and clear to auscultation bilaterally Resp Narrative: Not tachypneic and no conversational dyspnea. Effort and Inspection: able to speak in complete sentences Cardio regular rate, regular rhythm, S1 normal heart sound, S2 normal heart sound, no murmurs, no rub and no gallops Cardio Narrative: No ectopy. GI normal to inspection, nondistended, normoactive bowel sounds, soft to palpation and non-tender GI Narrative: No guarding with palpation. No bowel movement since Friday. no CVA tenderness Extremity Extremity Narrative: The R calf is tender when I compress it. No pain in the L calf. No personal or FH of VTE. There is swelling in the RLE to the ankle. I did not examine the incision since it is still covered with the silver impregnated dressing. No clubbing and no cyanosis. Both feet are warm to the touch and she has intact sensation. Skin Skin Narrative: No rashes, no skin breakdown. She has an incision of the R hip. She is hernandez and spends a lot of time in the pool in the summer. Neuro oriented x3, CN's II-XII intact bilaterally and no focal motor deficits Psych affect normal Psych Narrative: Appropriate, making good eye contact. Able to stay on topic and focus. No flight of ideas. Does not appear anxious or depressed. Conversant and relating well to staff. Very pleasant. Appearance: grossly normal and appropriate Attitude: calm Results Lab / Micro Data 02/20/23 05:36 02/20/23 05:36 Labs: Laboratory Results - last 24 hr 02/20/23 05:36: WBC 6.3, RBC 3.16 L, Hgb 9.7 L, Hct 29.7 L, MCV 94.0, MCH 30.7, MCHC 32.7, RDW Std Deviation 46.8 H, RDW Coeff of Marya 13.7, Plt Count 184, MPV 9.9, Immature Gran % (Auto) 0.300, Neut % (Auto) 64.5, Lymph % (Auto) 17.5 L, [place]pin % (Auto) 12.5 H, Eos % (Auto) 4.7, Baso % (Auto) 0.5, Absolute Neuts (auto) 4.1, Absolute Lymphs (auto) 1.11, Nucleated RBC % 0, Sodium 139, Potassium 4.2, Chloride 107, Carbon Dioxide 28.0, Anion Gap 4 L, BUN 15, Creatinine 0.64, Estim Creat Clear Calc 42.15, Est GFR (MDRD) Af Amer 117, Est GFR (MDRD) Non-Af 97, BUN/Creatinine Ratio 23.6 H, Glucose 109 H, Calcium 8.8, Phosphorus 3.6, Magnesium 1.8, Total Bilirubin 0.50, AST 21, ALT 16, Alkaline Phosphatase 62, Total Protein 6.0 L, Albumin 2.6 L, Globulin 3.4, Albumin/Globulin Ratio 0.8 L Assessment & Plan Assessment/Plan (1) Debility: (2) Closed right hip fracture: QUALIFIERS: Encounter type: subsequent encounter Fracture healing: with routine healing Qualified Code(s): S72.001D - Fracture of unspecified part of neck of right femur, subsequent encounter for closed fracture with routine healing (3) History of open reduction and internal fixation (ORIF) procedure: (4) Hallucinations: PLAN: Due to Oxycodone. (5) Constipation: QUALIFIERS: Constipation type: drug induced constipation Qualified Code(s): K59.03 - Drug induced constipation (6) Acute blood loss anemia: (7) Osteoporosis: QUALIFIERS: Osteoporosis type: unspecified Presence of current pathological fracture: unspecified Qualified Code(s): M81.0 - Age-related osteoporosis without current pathological fracture (8) Rheumatoid arthritis: QUALIFIERS: Rheumatoid arthritis location: unspecified site Rheumatoid factor presence: unspecified presence Qualified Code(s): M06.9 - Rheumatoid arthritis, unspecified (9) Hyperlipidemia: QUALIFIERS: Hyperlipidemia type: Mixed hyperlipidemia Qualified Code(s): E78.2 - Mixed hyperlipidemia (10) Anxiety and depression: (11) Right calf pain: PLAN: Plan PLAN PT for gait stability OT for ADL's ST for evaluation Analgesics as needed Bowel protocol Fall precautions Assess for Anxiety/Depression GI prophylaxis with pantoprazole DVT prophylaxis with Lovenox 40 mg subcu daily for 21 days after surgery Follow up with PCP, senior counsel commercial and orthopedics (Dr. Bo) following DC from [facility] Rehab AM lab including CMP, CBC, Mag and Phos Venous ultrasound of the right lower extremity since it is swollen, painful and she recently had a right hip fracture and surgical repair. Discontinue oxycodone due to hallucinations and drowsiness. It is also not adequately relieving her pain. Tylenol 1 g p.o. every 8 hours Tramadol 50 mg for pain 3-5 and 100 mg if pain is greater than 5. She takes a PPI at home for heartburn so will discontinue famotidine and start pantoprazole. Charges/Coding Visit Charges Inpatient E&M: 62708 Init Hosp L2
--- NOTE | 2023-02-20 15:19 | VDLE_ITS ---
Reason For Study: RLE pain RIGHT GSV is normal. CFV is compressible, spontaneous, phasic, competent and demonstrates normal augmentation. FV is compressible, spontaneous, phasic, competent and demonstrates normal augmentation. POP V is compressible, spontaneous, phasic, competent and demonstrates normal augmentation. T/P Trunk is compressible. PTV is compressible. RT PerV is compressible. Procedure This is a venous duplex using B-mode, color flow and spectral Doppler. Exam performed portable in patient room. The exam was abbreviated due to the COVID 19 protocol. The exam was diagnostic. A preliminary report was called and/or faxed to Rehab staff. VL/Venous Duplex US, Unilateral Interpretation Summary Deep veins of the right lower extremity are patent and compressible segmentally . There is no evidence of right lower extremity deep vein thrombosis. The right great sapheno us vein appears patent and compressible segmentally. Ordering Physician: Yuli Hernandez Performed By: Don Winters RVT
--- NOTE | 2023-02-20 15:29 | PCM.RU.PYE ---
Admission Information Primary Diagnosis:: Physical debility secondary to recent comminuted intertrochanteric fracture of the right hip with placement of an intramedullary nail. Status Changes from Prescreening?: No changes Identified Actual Problem List:: Skin Intergrity, Pain, ALteration in Cmfrt, Bowel, Constipation, Alteration in Sleep, Mobility Impaired, Self Care Deficit and Alteration-Leisure Activ. Potential Problem List:: DVT, Bleeding, Infection, UTI, Aspiration, Falls, Skin Integrity and Depression Risk of Complications DVT: LMWH and JENNIFER Hose Bleeding: Monitor Lab Values, Nursing to Teach Precautions for anti-coagulation therapy., Wound, if applicable, to be assessed every shift. and Stroke patients assessed for lethargy or change in status. Infection: Clinical Staff to Monitor for S/S of infection: and S/S of infection include fever, redness, warmth, etc. Urinary Tract Infection: Monitor for frequency, burning, discomfort, or incontinence. and Nursing will obtain urine sample for urinalysis and C&S when ordered. Aspiration: Clinical staff will monitor for coughing, drooling, congestion., Speech will evaluate swallowing and dsyphasia. and Nursing will monitor patient swallowing during meals. Falls: Patient will be evaluated for Fall Precautions and Patient will be placed on Fall Precautions as indicated per protocol. Skin Breakdown: Nursing will assess skin daily using assessment tool. and Nursing will place on Skin Breakdown Precautions as indicated. Pain: Clinical staff will assess patient's pain level per protocol., Medications will be given, if needed, and the pain level reassessed. and Other methods: Massage, distraction, decrease stimulus, etc. used PRN. Plan of Care Patient requires physician specializing in physical medicine and rehab oversight to provide close medical supervision of rehab issues including: Pain Management, Sleep Problems, Bowel and Bladder, Medical and co-morbidity Management, DVT prophylaxis, Rehabilitation Leadership and Coordination of treatment team Patient needs Physical Therapy: For a minimum of 1 hour and At least 5 out of 7 days Patient needs Physical Therapy to improve:: Mobility, Strengthening, Transfers, Stretching, ROM, Endurance, Stairs, Gait and Balance Patient needs Occupational Therapy: For a minimum of 1 hour and At least 5 out of 7 days Patient needs Occupational Therapy to improve ADL's incl.: Eating, Grooming, Bathing, Dressing, Toileting, Toilet transfers, Community Reintegration, Higher functioning activities, Household tasks, Adaptive Equipment, Splinting and Other activities as determined Patient requires 24/7 Rehabilitation Nursing for: Pain Issues, Identifying and preventing risk factors, Monitoring and reporting current medical conditions, Assisting with ambulation, transfer, and all ADL's, Teaching patients about disease process and medications, Family teaching, Providing safe environment, Bowel and Bladder Issues, Skin integrity and Medication Management Patient needs Drywall Application Supervisor/ Case Management for: Discharge Planning, Arranging Home Equipment or Services and Family Interventions Patient needs Dietary and Nutrition Services for: Adequate Nutrition, Nutritional Supplements and Nutritional Education Goals Patient will remain: free from falls and or injury at time of discharge. Patient will perform bed mobility at: MOD I level of assist. Patient will complete transfers from bed to chair at: MOD I level of assist. (Using the least restrictive device) Patient will ambulate: with LRD and - (200 feet at mod I) Patient will complete upper body dressing at: MOD I level of assist. Patient will complete lower body dressing at: MOD I level of assist. (With assistive devices as needed) Patient will complete toileting at: MOD I level of assist. Patient will perform bathing at: MOD I level of assist. Patient will complete grooming at: MOD I level of assist. Patient will complete home management skills at: MOD I level of assist. Patient will achieve: - (1 curb step with least restrictive device) Patient will have pain level of: of 3 or less Patient's skin will: remain intact Patient will receive: adequate nutrition. Discharge Planning Pt Prognosis for Sig. Practical Improv. w/in Reasonable Time: Good Estimated Length of stay (days): 28 Anticipated D/C Destination: Home with Outpt Therapy Was Preadmission Assessment Accurate?: Yes
[2023-02-20] MEDS: traMADol 50 MG Tablet PO (16:02)
[2023-02-20 19:36] VITALS: BP 113/60; PULSE 72; RESP 17; TEMP 36.6; O2SAT 97
[2023-02-20] MEDS: DESMOPRESSIN ACETATE 0.2 MG TABLET 0.6 MG PO (19:38)
[2023-02-20] MEDS: Pantoprazole Sodium 20 MG Tablet PO (19:38)
[2023-02-20] MEDS: Atorvastatin Calcium 10 MG Tablet PO (19:38)
[2023-02-20 21:26] VITALS: RESP 17; O2SAT 97
[2023-02-21] MEDS: traMADol 50 MG Tablet PO ×3 (02:33→18:01)
[2023-02-21] MEDS: Acetaminophen 500 MG Tablet 1000 MG PO ×3 (04:53→19:41)
[2023-02-21 06:50] VITALS: O2SAT 96
[2023-02-21 07:57] VITALS: BP 127/61; PULSE 91; RESP 16; TEMP 36.7; O2SAT 95
[2023-02-21] MEDS: Aspirin E.C. 81 MG Tablet PO (08:37)
[2023-02-21] MEDS: Multivitamins,Therapeutic Tablet 1 TABLET PO (08:37)
[2023-02-21] MEDS: Polyethylene Glycol 3350 17 GM PACKET PO (08:38)
[2023-02-21] MEDS: Enoxaparin 40 MG/0.4 ML Syringe SC (08:38)
[2023-02-21] MEDS: Folic Acid 1 MG Tablet PO (08:38)
[2023-02-21] MEDS: Citalopram 20 MG Tablet PO (08:38)
[2023-02-21] MEDS: Pantoprazole Sodium 20 MG Tablet PO ×2 (08:39→19:42)
[2023-02-21] MEDS: Senna/Docusate Sodium 1 Tablet 2 TABLET PO ×2 (08:39→19:41)
[2023-02-21] MEDS: Ascorbic Acid 500 MG Tablet 1000 MG PO (08:39)
[2023-02-21] MEDS: Magnesium Hydroxide 30 ML UDC PO (08:47)
--- NOTE | 2023-02-21 09:22 | PCM.PROGNOTE ---
Subjective Subjective Afebrile VSS Maintaining appropriate oxygen saturation on RA Oral intake is fair. Discussed with nursing - no problems that need addressed Reviewed the PT/OT/ST notes Medication list reviewed. Unfortunately Malathi had a another sleepless night. Tramadol has not been effective in relieving her pain. Neither was the oxycodone. She is complaining of pain in the right groin and in the right thigh and it feels as though it is burning. She denies cephalgia, lightheadedness, chest pain, shortness of breath, palpitations, nausea/vomiting, abdominal pain, dysuria and calf pain. Hallucinations have resolved with discontinuation of oxycodone. She feels more alert. Venous ultrasound of the right lower extremity was negative. Objective Data Objective Data Vital Signs: Vital Signs Temp Pulse Resp BP Pulse Ox O2 Del Method 98.0 F 91 16 127/61 H 95 Room Air 02/21/23 07:57 02/21/23 07:57 02/21/23 07:57 02/21/23 07:57 02/21/23 07:57 02/21/23 07:57 Oxygen Delivery Method Room Air Weight: 123 lb Body Mass Index (BMI) 22.1 Intake & Output: Intake and Output for Last 24 Hours 02/19/23 02/20/23 02/21/23 23:59 23:59 23:59 Intake Total 1270 / 1510 420 / 420 Output Total 1839 / 2364 1400 / 1400 Balance -569 / -854 -980 / -980 Lab / Micro Data 02/20/23 05:36 02/20/23 05:36 Physical Exam Const alert and oriented x3 Constitutional Narrative: Mildly diaphoretic and in pain. She is sitting in the recliner. Her brow is furrowed and she looks to be in significant pain. General Appearance: cooperative Resp clear to auscultation bilaterally Cardio regular rate, regular rhythm, no murmurs and no gallops Cardio Narrative: No ectopy GI normal to inspection, nondistended, normoactive bowel sounds, soft to palpation and non-tender Extremity Extremity Narrative: She has calf tenderness on the R but the US was negative. General Extremity: edema right lower extremity Skin General Skin Exam: no breakdown Rashes: no rashes Assessment & Plan Assessment/Plan (1) Debility: (2) Closed right hip fracture: QUALIFIERS: Encounter type: subsequent encounter Fracture healing: with routine healing Qualified Code(s): S72.001D - Fracture of unspecified part of neck of right femur, subsequent encounter for closed fracture with routine healing (3) History of open reduction and internal fixation (ORIF) procedure: (4) Hallucinations: PLAN: Due to Oxycodone. (5) Constipation: QUALIFIERS: Constipation type: drug induced constipation Qualified Code(s): K59.03 - Drug induced constipation (6) Acute blood loss anemia: (7) Rheumatoid arthritis: QUALIFIERS: Rheumatoid arthritis location: unspecified site Rheumatoid factor presence: unspecified presence Qualified Code(s): M06.9 - Rheumatoid arthritis, unspecified (8) Radicular leg pain: PLAN: Plan 1. Continue therapy 2. 200 mg of gabapentin now and if this is effective we will try 100 mg 3 times daily for radicular pain right groin and right anterior thigh 3. Continue Tramadol for incisional pain. 4. Trazodone at HS to facilitate sleep Charges/Coding Visit Charges Inpatient E&M: 77710 Subs Hosp L2
[2023-02-21] MEDS: Gabapentin 100 MG Capsule 200 MG PO (10:37)
[2023-02-21] MEDS: Gabapentin 100 MG Capsule PO (13:00)
[2023-02-21 19:29] VITALS: BP 124/54; PULSE 97; RESP 14; TEMP 36.2; O2SAT 94
[2023-02-21] MEDS: Atorvastatin Calcium 10 MG Tablet PO (19:40)
[2023-02-21] MEDS: Gabapentin 300 MG Capsule PO (19:40)
[2023-02-21] MEDS: Cholecalciferol (VIT D3) 25 MCG TABLET (1,000 UNITS) PO (19:41)
[2023-02-21] MEDS: DESMOPRESSIN ACETATE 0.2 MG TABLET 0.6 MG PO (19:42)
[2023-02-21] MEDS: traZODone 50 MG Tablet PO (19:43)
[2023-02-21 21:41] VITALS: O2SAT 94
[2023-02-22] MEDS: traMADol 50 MG Tablet PO (03:12)
[2023-02-22] MEDS: Acetaminophen 500 MG Tablet 1000 MG PO ×3 (05:19→19:39)
[2023-02-22] MEDS: Gabapentin 100 MG Capsule PO ×2 (07:55→12:14)
[2023-02-22] MEDS: Ascorbic Acid 500 MG Tablet 1000 MG PO (07:56)
[2023-02-22] MEDS: Pantoprazole Sodium 20 MG Tablet PO ×2 (07:57→19:39)
[2023-02-22] MEDS: Citalopram 20 MG Tablet PO (07:57)
[2023-02-22] MEDS: Enoxaparin 40 MG/0.4 ML Syringe SC (07:58)
[2023-02-22] MEDS: Folic Acid 1 MG Tablet PO (07:58)
[2023-02-22] MEDS: Aspirin E.C. 81 MG Tablet PO (07:58)
[2023-02-22] MEDS: Multivitamins,Therapeutic Tablet 1 TABLET PO (07:58)
[2023-02-22 09:08] VITALS: BP 124/57; PULSE 99; RESP 18; TEMP 36.6; O2SAT 99
--- NOTE | 2023-02-22 09:40 | PCM.PROGNOTE ---
Subjective Subjective Afebrile VSS Maintaining appropriate oxygen saturation on RA Oral intake is good. Poor fluid intake yesterday. She took only 600 cc by mouth. Finally had a bowel movement after a prune juice, orange juice and MOM cocktail yesterday. Discussed with nursing - Slept fair last night. Continues to c/o pain, worse in the AM. She stumbled a few times this morning when going to the toilet.....tends to lose balance backwards. Reviewed the PT/OT/ST notes Medication list reviewed. Malathi tells me that she slept better last night but, she thinks it is the cervical collar that keeps waking her up . She continued to deny neck pain. She also denies cephalgia, lightheadedness, chest pain, shortness of breath, cough, dysuria and calf pain. She tells me the pain in her thigh is better since the gabapentin was started. Objective Data Objective Data Vital Signs: Vital Signs Temp Pulse Resp BP Pulse Ox O2 Del Method 97.8 F 99 18 124/57 H 99 Room Air 02/22/23 09:08 02/22/23 09:08 02/22/23 09:08 02/22/23 09:08 02/22/23 09:08 02/22/23 09:08 Oxygen Delivery Method Room Air Weight: 123 lb Body Mass Index (BMI) 22.1 Intake & Output: Intake and Output for Last 24 Hours 02/20/23 02/21/23 02/22/23 23:59 23:59 23:59 Intake Total 1270 / 1510 600 / 1160 920 / 920 Output Total 1839 / 2364 1400 / 1900 500 / 500 Balance -569 / -854 -800 / -740 420 / 420 Lab / Micro Data 02/20/23 05:36 02/20/23 05:36 Physical Exam Const alert, oriented x3 and no apparent distress General Appearance: cooperative Resp clear to auscultation bilaterally Cardio regular rate, regular rhythm, no murmurs and no gallops GI normal to inspection, nondistended, normoactive bowel sounds, soft to palpation and non-tender Extremity Extremity Narrative: The right calf pain she had at admission is much improved. It may have been radicular. Still with some edema in the right lower extremity. The incision is intact with no dehiscence, erythema or purulent discharge. Skin Rashes: no rashes Assessment & Plan Assessment/Plan (1) Debility: (2) Closed right hip fracture: QUALIFIERS: Encounter type: subsequent encounter Fracture healing: with routine healing Qualified Code(s): S72.001D - Fracture of unspecified part of neck of right femur, subsequent encounter for closed fracture with routine healing (3) History of open reduction and internal fixation (ORIF) procedure: (4) Hallucinations: PLAN: Due to Oxycodone. (5) Constipation: QUALIFIERS: Constipation type: drug induced constipation Qualified Code(s): K59.03 - Drug induced constipation (6) Acute blood loss anemia: (7) Rheumatoid arthritis: QUALIFIERS: Rheumatoid arthritis location: unspecified site Rheumatoid factor presence: unspecified presence Qualified Code(s): M06.9 - Rheumatoid arthritis, unspecified (8) Radicular leg pain: PLAN: Plan 1. Continue therapy 2. Continue gabapentin 3 times daily 3. Continue tramadol for pain 4. Malathi and her would like to know if she could follow-up with orthopedics and [place] for the hip fracture and the cervical fracture. Mr. Irwin has seen Dr. Powell in the past. I will ask one of the local orthopedic doctors if he would be willing to follow Malathi on Friday. Since knows Dr. Powell will likely start with Dr. Powell. Charges/Coding Visit Charges Inpatient E&M: 06858 [facility] Hosp L1
[2023-02-22 19:23] VITALS: BP 106/50; PULSE 76; RESP 18; TEMP 36.9; O2SAT 94
[2023-02-22] MEDS: traZODone 50 MG Tablet PO (19:37)
[2023-02-22] MEDS: DESMOPRESSIN ACETATE 0.2 MG TABLET 0.6 MG PO (19:37)
[2023-02-22] MEDS: Gabapentin 300 MG Capsule PO (19:37)
[2023-02-22] MEDS: Senna/Docusate Sodium 1 Tablet 2 TABLET PO (19:38)
[2023-02-22] MEDS: Atorvastatin Calcium 10 MG Tablet PO (19:39)
[2023-02-23] MEDS: Acetaminophen 500 MG Tablet 1000 MG PO ×3 (06:42→21:05)
[2023-02-23 07:56] VITALS: BP 137/53; PULSE 82; RESP 16; TEMP 36.1; O2SAT 95
[2023-02-23] MEDS: Citalopram 20 MG Tablet PO (08:31)
[2023-02-23] MEDS: Folic Acid 1 MG Tablet PO (08:31)
[2023-02-23] MEDS: Multivitamins,Therapeutic Tablet 1 TABLET PO (08:31)
[2023-02-23] MEDS: Aspirin E.C. 81 MG Tablet PO (08:31)
[2023-02-23] MEDS: Gabapentin 100 MG Capsule PO ×2 (08:31→12:05)
[2023-02-23] MEDS: Ascorbic Acid 500 MG Tablet 1000 MG PO (08:32)
[2023-02-23] MEDS: Enoxaparin 40 MG/0.4 ML Syringe SC (08:32)
[2023-02-23] MEDS: Pantoprazole Sodium 20 MG Tablet PO ×2 (08:32→21:04)
[2023-02-23] MEDS: traMADol 50 MG Tablet PO ×3 (08:50→21:03)
[2023-02-23 19:02] VITALS: BP 107/47; PULSE 78; RESP 17; TEMP 36.4; O2SAT 97
[2023-02-23] MEDS: Gabapentin 300 MG Capsule PO (21:04)
[2023-02-23] MEDS: Senna/Docusate Sodium 1 Tablet 2 TABLET PO (21:05)
[2023-02-23] MEDS: traZODone 50 MG Tablet PO (21:06)
[2023-02-23] MEDS: DESMOPRESSIN ACETATE 0.2 MG TABLET 0.6 MG PO (21:06)
[2023-02-23] MEDS: Atorvastatin Calcium 10 MG Tablet PO (21:07)
[2023-02-24] MEDS: Acetaminophen 500 MG Tablet 1000 MG PO ×3 (06:27→21:18)
[2023-02-24 07:22] VITALS: BP 119/68; PULSE 84; RESP 16; TEMP 36; O2SAT 97
[2023-02-24] MEDS: Multivitamins,Therapeutic Tablet 1 TABLET PO (08:41)
[2023-02-24] MEDS: Aspirin E.C. 81 MG Tablet PO (08:41)
[2023-02-24] MEDS: Ascorbic Acid 500 MG Tablet 1000 MG PO (08:41)
[2023-02-24] MEDS: Citalopram 20 MG Tablet PO (08:41)
[2023-02-24] MEDS: Pantoprazole Sodium 20 MG Tablet PO ×2 (08:41→21:18)
[2023-02-24] MEDS: Enoxaparin 40 MG/0.4 ML Syringe SC (08:42)
[2023-02-24] MEDS: Folic Acid 1 MG Tablet PO (08:42)
[2023-02-24] MEDS: traMADol 50 MG Tablet PO ×3 (08:45→21:21)
[2023-02-24] MEDS: Gabapentin 100 MG Capsule PO ×2 (08:45→11:52)
--- NOTE | 2023-02-24 09:55 | PCM.PROGNOTE ---
Subjective Subjective Afebrile VSS Maintaining appropriate oxygen saturation on RA Oral intake is good for food and fluid. Discussed with nursing - night nurse reports frequent urination at night. Reviewed the PT/OT/ST notes Medication list reviewed. Malathi tells me she is sleeping well at night now. Her pain is adequately controlled. She takes desmopressin to decreased urinary frequency at night. She says it is quite effective and the urinary frequency is actually prior to taking the desmopressin. She has a bladder stimulator. She denies chest pain, shortness of breath, lightheadedness, nausea/vomiting/abdominal pain, dysuria, constipation and calf pain. Her son told her that the neurologist wants her to wear the [place] J collar for 6-8 weeks. She has no neck pain and there was no prevertebral swelling on the CT neck. All the reports of the cervical spine say the age of the fracture of the C1 arch is indeterminate. Does not appear to be acute. Objective Data Objective Data Vital Signs: Vital Signs Temp Pulse Resp BP Pulse Ox O2 Del Method 96.8 F L 84 16 119/68 97 Room Air 02/24/23 07:22 02/24/23 07:22 02/24/23 07:22 02/24/23 07:22 02/24/23 07:22 02/24/23 07:22 Oxygen Delivery Method Room Air Weight: 123 lb Body Mass Index (BMI) 22.1 Intake & Output: Intake and Output for Last 24 Hours 02/22/23 02/23/23 02/24/23 23:59 23:59 23:59 Intake Total 2360 / 2360 1480 / 1480 540 / 540 Output Total 700 / 700 1969 / 1970 250 / 250 Balance 1660 / 1660 -490 / -490 290 / 290 Lab / Micro Data 02/20/23 05:36 02/20/23 05:36 Physical Exam Const alert, oriented x3 and no apparent distress General Appearance: cooperative HEENT Mouth: dry mucous membranes Resp normal respiratory effort and clear to auscultation bilaterally Resp Narrative: No conversational dyspnea Effort and Inspection: Negative for tachypneic Cardio regular rate, regular rhythm, no murmurs and no gallops GI normal to inspection, nondistended, normoactive bowel sounds, soft to palpation and non-tender GI Narrative: Nontender to palpation Extremity no calf tenderness Extremity Narrative: No ankle edema today and no edema of the calf Skin General Skin Exam: no breakdown Rashes: no rashes Neuro CN's II-XII intact bilaterally, no focal motor deficits and no sensory deficits noted Speech: speech normal Psych affect normal Assessment & Plan Assessment/Plan (1) Debility: (2) Closed right hip fracture: QUALIFIERS: Encounter type: subsequent encounter Fracture healing: with routine healing Qualified Code(s): S72.001D - Fracture of unspecified part of neck of right femur, subsequent encounter for closed fracture with routine healing (3) History of open reduction and internal fixation (ORIF) procedure: (4) Hallucinations: PLAN: Due to Oxycodone. Resolved with discontinuation of the Oxycodone. (5) Constipation: QUALIFIERS: Constipation type: drug induced constipation Qualified Code(s): K59.03 - Drug induced constipation PLAN: Resolved (6) Acute blood loss anemia: (7) Rheumatoid arthritis: QUALIFIERS: Rheumatoid arthritis location: unspecified site Rheumatoid factor presence: unspecified presence Qualified Code(s): M06.9 - Rheumatoid arthritis, unspecified (8) Radicular leg pain: PLAN: Much improved with Gabapentin. PLAN: Plan 1. Continue therapy 2. Continue gabapentin 3 times daily 3. Continue tramadol for pain 4. Malathi and her would like to know if she could follow-up with orthopedics in [place] for the hip fracture and the cervical fracture. Mr. Irwin has seen Dr. Powell in the past. I sent a text to Dr. Powell today asking if he would be able to follow up with Malathi......if he says no will try Dr. Batres, 5. The collar makes it difficult for her to sleep. Will use a soft collar at night while sleeping. I do not feel the fracture of C1 arch is new. I see the fracture on the CT of the neck I reviewed but, it is not displaced and there is no edema.....I suspect this is not acute. 6. Check a HH in the AM. Charges/Coding Visit Charges Inpatient E&M: 85271 Subs Hosp L2
--- NOTE | 2023-02-24 13:18 | CASEMGMT ---
Social Work IDT met with patient and for Team meeting. Discussed patient's progress in PT/OT/SN. Educated to Medicare approval of 14 days with [facility] 03/05. Pt's goal is to return home with . Offered therapy training for closer to DC. SW will continue to follow for DC planning. ENEIDA MaloneyW
--- NOTE | 2023-02-24 15:31 | CHAPLAIN ---
Type of Pastoral Visit _x__ Initial Visit ___ Follow-up Visit ___ On-call Visit ___ General Patient Visit ___ Spiritual Assessment ___ Family Conference ___ Bereavement ___ Rapid Response ___ Code Blue ___ Other (describe below) Pastoral Care Referral From _x__ Patient ___ Family ___ Nurse ___ Physician ___ Options Advisor ___ Manager Eligibility ___ Other (describe below) Sacrament/Intervention _x__ Active listening ___ Anointing ___ Shinto ___ Bereavement ___ Communion _x__ Jaimee exploration ___ _x__ Life review _x__ Prayer ___ Reconciliation ___ Sacrament of Sick _x__ Supportive presence ___ Wedding ___ Other (describe below) Pastoral Comments patient is alert and lying in bed; pt has neck brace on and has had hip surgery; pt recounts her fall and change of plans for family vacation; pt presents with positive attitude there will be next year' and 'I'll be fine; pt speaks gratitude of good help and comfortable people around her; pt has recently started attending a new holiness in her area; pt is looking forward to a growing relationship with these people; pt gives some life review and welcomes prayer
[2023-02-24 20:00] VITALS: BP 132/60; PULSE 72; RESP 17; TEMP 36.7; O2SAT 96
[2023-02-24] MEDS: Cholecalciferol (VIT D3) 25 MCG TABLET (1,000 UNITS) PO (21:18)
[2023-02-24] MEDS: Gabapentin 300 MG Capsule PO (21:18)
[2023-02-24] MEDS: DESMOPRESSIN ACETATE 0.2 MG TABLET 0.6 MG PO (21:18)
[2023-02-24] MEDS: Atorvastatin Calcium 10 MG Tablet PO (21:18)
[2023-02-24] MEDS: traZODone 50 MG Tablet PO (21:18)
[2023-02-25] MEDS: traMADol 50 MG Tablet PO ×4 (04:04→22:23)
[2023-02-25] MEDS: Acetaminophen 500 MG Tablet 1000 MG PO ×3 (05:45→21:42)
[2023-02-25 05:59] LABS: Hematocrit 28.4 % (37-47); Hemoglobin 8.9 g/dL (12.0-15.0)
[2023-02-25 07:48] VITALS: BP 103/55; PULSE 79; RESP 16; TEMP 36.3; O2SAT 95
[2023-02-25] MEDS: Folic Acid 1 MG Tablet PO (08:17)
[2023-02-25] MEDS: Aspirin E.C. 81 MG Tablet PO (08:17)
[2023-02-25] MEDS: Multivitamins,Therapeutic Tablet 1 TABLET PO (08:17)
[2023-02-25] MEDS: Gabapentin 100 MG Capsule PO ×2 (08:17→11:54)
[2023-02-25] MEDS: Citalopram 20 MG Tablet PO (08:17)
[2023-02-25] MEDS: Senna/Docusate Sodium 1 Tablet 2 TABLET PO ×2 (08:18→21:42)
[2023-02-25] MEDS: Enoxaparin 40 MG/0.4 ML Syringe SC (08:18)
[2023-02-25] MEDS: Polyethylene Glycol 3350 17 GM PACKET PO (08:18)
[2023-02-25] MEDS: Ascorbic Acid 500 MG Tablet 1000 MG PO (08:18)
[2023-02-25] MEDS: Pantoprazole Sodium 20 MG Tablet PO ×2 (08:18→21:42)
--- NOTE | 2023-02-25 09:54 | PCM.PROGNOTE ---
Subjective Subjective Afebrile VSS Maintaining appropriate oxygen saturation on RA Oral intake is good for fluids and food. Discussed with nursing - no problems that need addressed Reviewed the PT/OT/ST notes Medication list reviewed. All lab drawn this morning was personally reviewed. Hemoglobin has dropped to 8.9 from 9.7 on 02/20/2023. Malathi denies lightheadedness, vertigo, CP, SOB at rest, SOB with exertion, cough, nausea, vomiting, abd pain, diarrhea, constipation, dysuria, calf pain and ankle swelling. Objective Data Objective Data Vital Signs: Vital Signs Temp Pulse Resp BP Pulse Ox O2 Del Method 97.4 F L 79 16 103/55 L 95 Room Air 02/25/23 07:48 02/25/23 07:48 02/25/23 07:48 02/25/23 07:48 02/25/23 07:48 02/25/23 08:55 Oxygen Delivery Method Room Air Weight: 123 lb Body Mass Index (BMI) 22.1 Intake & Output: Intake and Output for Last 24 Hours 02/23/23 02/24/23 02/25/23 23:59 23:59 23:59 Intake Total 1480 / 1480 1280 / 1280 690 / 690 Output Total 1970 / 1970 250 / 250 Balance -490 / -490 1030 / 1030 690 / 690 Lab / Micro Data 02/25/23 05:34 02/25/23 05:34 Labs: Laboratory Results - last 24 hr 02/25/23 05:34: Hgb 8.9 L, Hct 28.4 L Radiography Diagnostic Testing: Radiology Impression Venous Doppler Study 02/20/23 15:19 Interpretation Summary Deep veins of the right lower extremity are patent and compressible segmentally. There is no evidence of right lower extremity deep vein thrombosis. The right great saphenous vein appears patent and compressible segmentally. Ordering Physician: Yuli Hernandez Performed By: Don Winters RVT Physical Exam Const alert and no apparent distress General Appearance: cooperative HEENT moist oral mucous membranes Resp normal respiratory effort, no use of accessory muscles and clear to auscultation bilaterally Effort and Inspection: Negative for tachypneic or labored Cardio regular rate, regular rhythm and no gallops GI normal to inspection, nondistended, normoactive bowel sounds, non-tender and non-distended GI Narrative: no guarding with palpation Extremity Negative for no calf tenderness General Extremity: Negative for edema Skin General Skin Exam: no breakdown Rashes: no rashes Psych affect normal Assessment & Plan Assessment/Plan (1) Debility: (2) Closed right hip fracture: QUALIFIERS: Encounter type: subsequent encounter Fracture healing: with routine healing Qualified Code(s): S72.001D - Fracture of unspecified part of neck of right femur, subsequent encounter for closed fracture with routine healing (3) History of open reduction and internal fixation (ORIF) procedure: (4) Hallucinations: PLAN: Resolved (5) Constipation: QUALIFIERS: Constipation type: drug induced constipation Qualified Code(s): K59.03 - Drug induced constipation PLAN: Resolved (6) Acute blood loss anemia: PLAN: Stool is heme negative (7) Rheumatoid arthritis: QUALIFIERS: Rheumatoid arthritis location: unspecified site Rheumatoid factor presence: unspecified presence Qualified Code(s): M06.9 - Rheumatoid arthritis, unspecified PLAN: Plan 1. Continue therapy 2. BMP, serum iron, TIBC and ferritin 3. Hemoccult stool Charges/Coding Visit Charges Inpatient E&M: 37362 Subs Hosp L2
[2023-02-25 10:28] LABS: Anion Gap 5 (5-15); BUN 19 mg/dL (7-18); BUN/Creat Ratio 37.3 RATIO (10-20); Calcium,Total 8.4 mg/dL (8.5-10.1); Chloride 107 mmol/L (98-107); Creatinine, Serum 0.51 mg/dL (0.55-1.02); EST Glomerular Filtration Rate 125 mL/min (>60); Est Glom Filt Rate - Afr Amer 151 mL/min (>60); Estimated Creatinine Clearance 36.12 ml/min; Ferritin 258 ng/mL (8-252); Glucose 90 mg/dL (74-106); Iron 49 ug/dL (50-170); Iron Binding Capacity,Total 277 ug/dL (250-450); PERCENT IRON SATURATION 17.7 % (15.0-55.0); Potassium 3.9 mmol/L (3.5-5.1); Sodium Level 138 mmol/L (136-145)
[2023-02-25 19:24] VITALS: BP 91/51; PULSE 98; RESP 18; TEMP 36.6; O2SAT 95
[2023-02-25] MEDS: DESMOPRESSIN ACETATE 0.2 MG TABLET 0.6 MG PO (21:42)
[2023-02-25] MEDS: Atorvastatin Calcium 10 MG Tablet PO (21:42)
[2023-02-25] MEDS: traZODone 50 MG Tablet PO (21:42)
[2023-02-25] MEDS: Gabapentin 300 MG Capsule PO (21:42)
[2023-02-26 05:02] VITALS: BMI 23.3
[2023-02-26] MEDS: traMADol 50 MG Tablet PO ×3 (06:24→20:48)
[2023-02-26] MEDS: Acetaminophen 500 MG Tablet 1000 MG PO ×3 (06:24→20:53)
[2023-02-26 07:37] VITALS: BP 125/53; PULSE 86; RESP 18; TEMP 36.1; O2SAT 93
[2023-02-26] MEDS: Pantoprazole Sodium 20 MG Tablet PO ×2 (09:00→20:54)
[2023-02-26] MEDS: Enoxaparin 40 MG/0.4 ML Syringe SC (09:00)
[2023-02-26] MEDS: Citalopram 20 MG Tablet PO (09:00)
[2023-02-26] MEDS: Multivitamins,Therapeutic Tablet 1 TABLET PO (09:00)
[2023-02-26] MEDS: Folic Acid 1 MG Tablet PO (09:00)
[2023-02-26] MEDS: Polyethylene Glycol 3350 17 GM PACKET PO (09:01)
[2023-02-26] MEDS: Aspirin E.C. 81 MG Tablet PO (09:01)
[2023-02-26] MEDS: Ascorbic Acid 500 MG Tablet 1000 MG PO (09:01)
[2023-02-26] MEDS: Senna/Docusate Sodium 1 Tablet 2 TABLET PO ×2 (09:01→20:53)
[2023-02-26] MEDS: Gabapentin 100 MG Capsule PO ×2 (09:08→12:04)
[2023-02-26] MEDS: oxyCODONE 5 MG Tablet PO (12:03)
[2023-02-26 19:25] VITALS: BP 105/54; PULSE 89; RESP 14; TEMP 36.9; O2SAT 97
[2023-02-26] MEDS: DESMOPRESSIN ACETATE 0.2 MG TABLET 0.6 MG PO (20:50)
[2023-02-26] MEDS: Gabapentin 300 MG Capsule PO (20:51)
[2023-02-26] MEDS: Atorvastatin Calcium 10 MG Tablet PO (20:53)
[2023-02-26] MEDS: traZODone 50 MG Tablet PO (20:54)
[2023-02-27] MEDS: oxyCODONE 5 MG Tablet PO ×2 (00:20→20:34)
[2023-02-27] MEDS: traMADol 50 MG Tablet PO ×3 (05:40→18:08)
[2023-02-27] MEDS: Acetaminophen 500 MG Tablet 1000 MG PO ×3 (05:40→21:49)
[2023-02-27 07:19] VITALS: BP 124/38; PULSE 84; RESP 16; TEMP 36.6; O2SAT 98
[2023-02-27] MEDS: Multivitamins,Therapeutic Tablet 1 TABLET PO (08:05)
[2023-02-27] MEDS: Folic Acid 1 MG Tablet PO (08:05)
[2023-02-27] MEDS: Pantoprazole Sodium 20 MG Tablet PO ×2 (08:05→20:35)
[2023-02-27] MEDS: Aspirin E.C. 81 MG Tablet PO (08:05)
[2023-02-27] MEDS: Citalopram 20 MG Tablet PO (08:05)
[2023-02-27] MEDS: Gabapentin 100 MG Capsule PO (08:05)
[2023-02-27] MEDS: Senna/Docusate Sodium 1 Tablet 2 TABLET PO ×2 (08:06→20:34)
[2023-02-27] MEDS: Enoxaparin 40 MG/0.4 ML Syringe SC (08:06)
[2023-02-27] MEDS: Ascorbic Acid 500 MG Tablet 1000 MG PO (08:07)
--- NOTE | 2023-02-27 10:04 | PN_ITS ---
Subjective Subjective Afebrile VSS Maintaining appropriate oxygen saturation on RA Oral intake is good Weight is stable Discussed with nursing - no problems that need addressed. Night nurses concerned about urine frequency and are always wanting to get a UA. She has no fevers, no dysuria and she has a bladder stimulator that leads to the frequency. It stops at night because she takes desmopressin at HS. Reviewed the PT/OT/ST notes Medication list reviewed. She has been taking tramadol 100 mg usually 3 times daily but sometimes needs something before the 6 hours is up. She was started on oxycodone 5 mg every 8 hours to supplement in between tramadol doses. She is only taken 2 doses of oxycodone since the order was placed. Pain is better controlled.' Malathi tells me today that she is having pain in the R groin, R anterior thigh and R lateral calf. She describes the thigh pain as burning. She denies lightheadedness, cephalgia, chest pain, shortness of breath, cough, nausea/vomiting, dysuria and constipation. She does have calf pain, on the right lateral calf only, but I think that this is radicular pain. Venous ultrasound at admission was negative. she is sleeping much better with the soft collar on while in bed. Serum iron is low at 49 and the iron saturation is low normal at 17.7. Ferritin is elevated at 258 but this is likely elevated because it is an acute phase reactant and she has toyed arthritis and recent hip fracture. Stool was Hemoccult negative. Objective Data Objective Data Vital Signs: Vital Signs Temp Pulse Resp BP Pulse Ox O2 Del Method 97.9 F 84 16 124/38 H 98 Room Air 02/27/23 07:19 02/27/23 07:19 02/27/23 07:19 02/27/23 07:19 02/27/23 07:19 02/27/23 07:19 Oxygen Delivery Method Room Air Weight: 123 lb 7.342 oz Body Mass Index (BMI) 23.3 Intake & Output: Intake and Output for Last 24 Hours 02/25/23 02/26/23 02/27/23 23:59 23:59 23:59 Intake Total 2140 / 2140 1520 / 1640 540 / 540 Output Total 910 / 910 1350 / 1350 250 / 250 Balance 1230 / 1230 170 / 290 290 / 290 Lab / Micro Data 02/25/23 05:34 02/25/23 05:34 Micro: Microbiology 02/26/23 17:45 Stool Stool Occult Blood (BEKAH) - Final Physical Exam Const alert, oriented x3 and no apparent distress Constitutional Narrative: Sitting in the recliner and appears comfortable. General Appearance: cooperative Resp normal respiratory effort, normal air movement and clear to auscultation bila terally Effort and Inspection: Negative for tachypneic Cardio regular rate, regular rhythm, no murmurs and no gallops GI normal to inspection, nondistended, normoactive bowel sounds, soft to palpation and non-tender Extremity Extremity Narrative: Calf tenderness on the R but, only the lateral calf. General Extremity: Negative for edema Skin General Skin Exam: no breakdown Rashes: no rashes Assessment & Plan Assessment/Plan (1) Debility: (2) Closed right hip fracture: QUALIFIERS: Encounter type: subsequent encounter Fracture healing: with routine healing Qualified Code(s): S72.001D - Fracture of unspecified part of neck of right femur, subsequent encounter for closed fracture with routine healing (3) History of open reduction and internal fixation (ORIF) procedure: (4) Hallucinations: PLAN: Resolved (5) Constipation: QUALIFIERS: Constipation type: drug induced constipation Qualified Code(s): K59.03 - Drug induced constipation PLAN: Resolved (6) Acute blood loss anemia: PLAN: Stool is heme negative (7) Rheumatoid arthritis: QUALIFIERS: Rheumatoid arthritis location: unspecified site Rheumatoid factor presence: unspecified presence Qualified Code(s): M06.9 - Rheumatoid arthritis, unspecified (8) Radicular leg pain: PLAN: R leg, groin, thigh and R lateral calf. PLAN: Plan 1. Continue therapy 2. Increase gabapentin to 200 mg twice daily and continue 300 mg at at bedtime. 3. No need to do any more UAs unless she has dysuria. The urine frequency is secondary to the bladder stimulator. 4. Continue to alternate tramadol and oxycodone. The rheumatoid arthritis complicates pain management. She has 3 different kinds of pain and this includes pain from the fracture and surgery, radicular pain in the right lower extremity and pain from rheumatoid arthritis exacerbated by decrease in activity. 5. Still trying to find orthopedic doctor in [place] who is willing to follow her. 6. start iron and vitamin C once daily at lunch Charges/Coding Visit Charges Inpatient E&M: 68356 Subs Hosp L2
[2023-02-27] MEDS: Ferrous Sulfate 325 MG Tablet PO (11:55)
[2023-02-27] MEDS: Gabapentin 100 MG Capsule 200 MG PO (11:56)
[2023-02-27 19:24] VITALS: BP 111/59; PULSE 85; RESP 14; TEMP 36.5; O2SAT 95
[2023-02-27] MEDS: DESMOPRESSIN ACETATE 0.2 MG TABLET 0.6 MG PO (20:35)
[2023-02-27] MEDS: Gabapentin 300 MG Capsule PO (20:35)
[2023-02-27] MEDS: traZODone 50 MG Tablet PO (20:36)
[2023-02-27] MEDS: Atorvastatin Calcium 10 MG Tablet PO (20:36)
[2023-02-27 22:00] VITALS: PULSE 86; RESP 15; O2SAT 95
[2023-02-28] MEDS: Acetaminophen 500 MG Tablet 1000 MG PO ×3 (06:14→21:23)
[2023-02-28] MEDS: oxyCODONE 5 MG Tablet PO ×3 (06:15→22:16)
[2023-02-28 07:26] VITALS: BP 113/53; PULSE 98; RESP 18; TEMP 36.3; O2SAT 93
[2023-02-28] MEDS: Citalopram 20 MG Tablet PO (08:07)
[2023-02-28] MEDS: Folic Acid 1 MG Tablet PO (08:07)
[2023-02-28] MEDS: Multivitamins,Therapeutic Tablet 1 TABLET PO (08:07)
[2023-02-28] MEDS: Pantoprazole Sodium 20 MG Tablet PO ×2 (08:08→21:23)
[2023-02-28] MEDS: Aspirin E.C. 81 MG Tablet PO (08:08)
[2023-02-28] MEDS: Enoxaparin 40 MG/0.4 ML Syringe SC (08:08)
[2023-02-28] MEDS: Gabapentin 100 MG Capsule 200 MG PO ×2 (08:11→12:24)
--- NOTE | 2023-02-28 09:27 | NURSING ---
therapy reported that pt pain a 7 now in rt hip and down leg into calf. unable to tell whether pt had vomited up oxycodone from previous.
[2023-02-28] MEDS: traMADol 50 MG Tablet PO (09:35)
[2023-02-28] MEDS: Ferrous Sulfate 325 MG Tablet PO (12:24)
[2023-02-28] MEDS: Ascorbic Acid 500 MG Tablet 1000 MG PO (12:24)
[2023-02-28] MEDS: DESMOPRESSIN ACETATE 0.2 MG TABLET 0.6 MG PO (21:22)
[2023-02-28] MEDS: traZODone 50 MG Tablet PO (21:22)
[2023-02-28] MEDS: Atorvastatin Calcium 10 MG Tablet PO (21:22)
[2023-02-28] MEDS: Cholecalciferol (VIT D3) 25 MCG TABLET (1,000 UNITS) PO (21:22)
[2023-02-28] MEDS: Gabapentin 300 MG Capsule PO (21:22)
[2023-02-28 21:35] VITALS: BP 119/50; PULSE 94; RESP 16; TEMP 36.6; O2SAT 98
[2023-02-28 22:00] VITALS: PULSE 98; RESP 16; O2SAT 96
[2023-03-01] MEDS: Acetaminophen 500 MG Tablet 1000 MG PO ×3 (05:21→21:56)
[2023-03-01] MEDS: Gabapentin 100 MG Capsule 200 MG PO ×2 (07:58→11:25)
[2023-03-01] MEDS: Pantoprazole Sodium 20 MG Tablet PO ×2 (07:58→20:59)
[2023-03-01 08:00] VITALS: BP 122/64; PULSE 77; RESP 16; TEMP 36.6; O2SAT 96
[2023-03-01] MEDS: Multivitamins,Therapeutic Tablet 1 TABLET PO (08:01)
[2023-03-01] MEDS: Citalopram 20 MG Tablet PO (08:02)
[2023-03-01] MEDS: Aspirin E.C. 81 MG Tablet PO (08:02)
[2023-03-01] MEDS: Enoxaparin 40 MG/0.4 ML Syringe SC (08:03)
[2023-03-01] MEDS: Folic Acid 1 MG Tablet PO (08:03)
[2023-03-01] MEDS: traMADol 50 MG Tablet PO ×2 (09:00→15:17)
[2023-03-01] MEDS: Ferrous Sulfate 325 MG Tablet PO (11:25)
[2023-03-01] MEDS: Ascorbic Acid 500 MG Tablet 1000 MG PO (11:25)
[2023-03-01] MEDS: Gabapentin 300 MG Capsule PO (20:56)
[2023-03-01] MEDS: oxyCODONE 5 MG Tablet PO (20:59)
[2023-03-01] MEDS: DESMOPRESSIN ACETATE 0.2 MG TABLET 0.6 MG PO (20:59)
[2023-03-01] MEDS: Atorvastatin Calcium 10 MG Tablet PO (20:59)
[2023-03-01] MEDS: traZODone 50 MG Tablet PO (20:59)
[2023-03-01 21:06] VITALS: BP 113/57; PULSE 94; RESP 15; TEMP 36.1; O2SAT 97
[2023-03-01 21:20] VITALS: PULSE 96; RESP 16; O2SAT 97
[2023-03-02] MEDS: Acetaminophen 500 MG Tablet 1000 MG PO ×3 (06:24→22:07)
[2023-03-02 07:24] VITALS: BP 115/64; PULSE 76; RESP 17; TEMP 35.9; O2SAT 98
[2023-03-02] MEDS: Multivitamins,Therapeutic Tablet 1 TABLET PO (07:58)
[2023-03-02] MEDS: Enoxaparin 40 MG/0.4 ML Syringe SC (08:02)
[2023-03-02] MEDS: Citalopram 20 MG Tablet PO (08:05)
[2023-03-02] MEDS: Aspirin E.C. 81 MG Tablet PO (08:05)
[2023-03-02] MEDS: Pantoprazole Sodium 20 MG Tablet PO ×2 (08:06→20:43)
[2023-03-02] MEDS: Folic Acid 1 MG Tablet PO (08:06)
[2023-03-02] MEDS: Gabapentin 100 MG Capsule 200 MG PO ×2 (08:09→11:39)
[2023-03-02] MEDS: traMADol 50 MG Tablet PO ×2 (09:18→15:38)
[2023-03-02] MEDS: Ascorbic Acid 500 MG Tablet 1000 MG PO (11:39)
[2023-03-02] MEDS: Ferrous Sulfate 325 MG Tablet PO (11:39)
[2023-03-02 18:59] VITALS: BP 125/54; PULSE 72; RESP 16; TEMP 36.2; O2SAT 97
[2023-03-02] MEDS: oxyCODONE 5 MG Tablet PO (20:42)
[2023-03-02] MEDS: Gabapentin 300 MG Capsule PO (20:42)
[2023-03-02] MEDS: Atorvastatin Calcium 10 MG Tablet PO (20:43)
[2023-03-02] MEDS: DESMOPRESSIN ACETATE 0.2 MG TABLET 0.6 MG PO (20:43)
[2023-03-02] MEDS: traZODone 50 MG Tablet PO (20:43)
[2023-03-02] MEDS: Senna/Docusate Sodium 1 Tablet 2 TABLET PO (20:46)
[2023-03-02 20:54] VITALS: PULSE 76; RESP 16; O2SAT 96
[2023-03-03] MEDS: Acetaminophen 500 MG Tablet 1000 MG PO ×3 (05:58→21:05)
[2023-03-03 07:02] VITALS: BP 112/59; PULSE 78; RESP 16; TEMP 36.3; O2SAT 93
[2023-03-03] MEDS: Senna/Docusate Sodium 1 Tablet 2 TABLET PO (07:28)
[2023-03-03] MEDS: Enoxaparin 40 MG/0.4 ML Syringe SC (07:28)
[2023-03-03] MEDS: Citalopram 20 MG Tablet PO (07:28)
[2023-03-03] MEDS: Gabapentin 100 MG Capsule 200 MG PO ×2 (07:28→11:13)
[2023-03-03] MEDS: Aspirin E.C. 81 MG Tablet PO (07:28)
[2023-03-03] MEDS: Multivitamins,Therapeutic Tablet 1 TABLET PO (07:28)
[2023-03-03] MEDS: Pantoprazole Sodium 20 MG Tablet PO ×2 (07:28→21:04)
[2023-03-03] MEDS: Folic Acid 1 MG Tablet PO (07:28)
[2023-03-03] MEDS: traMADol 50 MG Tablet PO ×2 (09:50→16:06)
--- NOTE | 2023-03-03 10:36 | PN_ITS ---
Subjective Subjective Afebrile VSS Maintaining appropriate oxygen saturation on RA Oral intake is good Discussed with nursing - She has had some nausea with Oxycodone and is trying to take only the Tramadol and Tylenol for now. Reviewed the PT/OT/ST notes Medication list reviewed. Malathi denies lightheadedness, vertigo, CP, SOB at rest, SOB with exertion, cough, nausea, vomiting, abd pain, diarrhea, constipation, dysuria and ankle swelling. The pain primarily is in the R thigh and the R lateral calf. It is about a 5 after recent pain medication. The increase in the Gabapentin has helped with the pain in the R lateral calf and the anterior thigh. She is sleeping well and she is mostly wearing the soft collar because she tolerates it much better than the [place] J collar. She denies neck pain. Objective Data Objective Data Vital Signs: Vital Signs Temp Pulse Resp BP Pulse Ox O2 Del Method 97.4 F L 78 16 112/59 L 93 Room Air 03/03/23 07:02 03/03/23 07:02 03/03/23 07:02 03/03/23 07:02 03/03/23 07:02 03/03/23 07:02 Oxygen Delivery Method Room Air Weight: 123 lb 7.342 oz Body Mass Index (BMI) 23.3 Intake & Output: Intake and Output for Last 24 Hours 03/01/23 03/02/23 03/03/23 23:59 23:59 23:59 Intake Total 1700 / 1700 1500 / 1500 60 / 60 Output Total 1351 / 1351 500 / 500 Balance 349 / 349 1000 / 1000 60 / 60 Lab / Micro Data 02/25/23 05:34 02/25/23 05:34 Micro: Microbiology 02/26/23 17:45 Stool Stool Occult Blood (BEKAH) - Final Physical Exam Const alert, oriented x3 and no apparent distress General Appearance: cooperative Orientation / Consciousness: Negative for confused Resp clear to auscultation bilaterally Effort and Inspection: Negative for tachypneic Cardio regular rate, regular rhythm and no gallops GI normal to inspection, nondistended, normoactive bowel sounds, soft to palpation and non-tender GI Narrative: Having regular BM's. Extremity Extremity Narrative: She has calf tenderness only in the R lateral calf and this is due to radicular pain. General Extremity: Negative for edema Skin General Skin Exam: no breakdown Rashes: no rashes Psych cooperative and affect normal Assessment & Plan Assessment/Plan (1) Debility: (2) Closed right hip fracture: QUALIFIERS: Encounter type: subsequent encounter Fracture healing: with routine healing Qualified Code(s): S72.001D - Fracture of unspecified part of neck of right femur, subsequent encounter for closed fracture with routine healing (3) History of open reduction and internal fixation (ORIF) procedure: (4) Hallucinations: PLAN: Resolved (5) Constipation: QUALIFIERS: Constipation type: drug induced constipation Qualified Code(s): K59.03 - Drug induced constipation PLAN: Resolved (6) Acute blood loss anemia: PLAN: Stool is heme negative (7) Rheumatoid arthritis: QUALIFIERS: Rheumatoid arthritis location: unspecified site Rheumatoid factor presence: unspecified presence Qualified Code(s): M06.9 - Rheumatoid arthritis, unspecified (8) Radicular leg pain: PLAN: R leg, groin, thigh and R lateral calf. PLAN: Plan 1. Continue therapy 2. Increase gabapentin to 300 mg p.o. 3 times daily. She is not really having rheumatoid pain at this time it is primarily radicular of the right lower extr emity. 3. CBC without differential, magnesium and BMP tomorrow Charges/Coding Visit Charges Inpatient E&M: 62626 Subs Hosp L2
[2023-03-03] MEDS: Ascorbic Acid 500 MG Tablet 1000 MG PO (11:13)
[2023-03-03] MEDS: Ferrous Sulfate 325 MG Tablet PO (11:13)
--- NOTE | 2023-03-03 13:31 | CASEMGMT ---
Addendum entered by Concha Alanis 03/04/23 09:37: [facility] Addendum entered by Concha Alanis 03/03/23 15:33: provided HHC choices: [place], [facility], [facility]. SW placed referral to [facility] via [facility]. Original Note: Social Work IDT met with patient and for Team meeting. Discussed patient's progress in PT/OT/SN. Confirmed Medicare DC for 03/05 home with . Recommending HHC PT/OT. Provided printed list of skilled HHC agencies with quality and resource data via [employer]. No DME needs. Plan: DC home with 03/05, HHC PT/OT ENEIDA Maloney [facility]
[2023-03-03 19:00] VITALS: BP 121/63; PULSE 77; RESP 16; TEMP 36.8; O2SAT 96
[2023-03-03] MEDS: Gabapentin 300 MG Capsule PO (21:03)
[2023-03-03] MEDS: traZODone 50 MG Tablet PO (21:03)
[2023-03-03] MEDS: DESMOPRESSIN ACETATE 0.2 MG TABLET 0.6 MG PO (21:04)
[2023-03-03] MEDS: Cholecalciferol (VIT D3) 25 MCG TABLET (1,000 UNITS) PO (21:04)
[2023-03-03] MEDS: Atorvastatin Calcium 10 MG Tablet PO (21:04)
[2023-03-03] MEDS: oxyCODONE 5 MG Tablet PO (21:05)
[2023-03-04 05:53] LABS: Hematocrit 32.2 % (37-47); Hemoglobin 9.9 g/dL (12.0-15.0); Mean Corp Hgb Conc 30.7 g/dL (32-36); Mean Corpuscular Hgb 30.6 pg (27.0-32.0); Mean Corpuscular Volume 99.4 fL (81-99); Mean Platelet Vol. 8.9 fl (6.2-12.0); Platelet Count 401 K/mm3 (150-450); RBC Distribution Width CV 16.9 % (11.6-14.6); RBC Distribution Width SD 59.3 fl (35.1-43.9); Red Blood Count 3.24 M/mm3 (4.2-5.4); White Blood Count 5.5 K/mm3 (4.4-11.0)
[2023-03-04 06:22] LABS: Anion Gap 4 (5-15); BUN 19 mg/dL (7-18); BUN/Creat Ratio 27.8 RATIO (10-20); Chloride 104 mmol/L (98-107); Creatinine, Serum 0.68 mg/dL (0.55-1.02); EST Glomerular Filtration Rate 89 mL/min (>60); Est Glom Filt Rate - Afr Amer 108 mL/min (>60); Estimated Creatinine Clearance 36.12 ml/min; Glucose 104 mg/dL (74-106); Potassium 4.2 mmol/L (3.5-5.1); Sodium Level 136 mmol/L (136-145)
[2023-03-04] MEDS: Acetaminophen 500 MG Tablet 1000 MG PO ×3 (06:33→21:40)
[2023-03-04 07:38] VITALS: BP 112/59; PULSE 84; RESP 18; TEMP 36.7; O2SAT 97
[2023-03-04] MEDS: Enoxaparin 40 MG/0.4 ML Syringe SC (08:06)
[2023-03-04] MEDS: Multivitamins,Therapeutic Tablet 1 TABLET PO (08:07)
[2023-03-04] MEDS: Pantoprazole Sodium 20 MG Tablet PO ×2 (08:07→21:38)
[2023-03-04] MEDS: Senna/Docusate Sodium 1 Tablet 2 TABLET PO (08:07)
[2023-03-04] MEDS: Gabapentin 100 MG Capsule 200 MG PO ×2 (08:07→12:08)
[2023-03-04] MEDS: Aspirin E.C. 81 MG Tablet PO (08:07)
[2023-03-04] MEDS: Citalopram 20 MG Tablet PO (08:08)
[2023-03-04] MEDS: Folic Acid 1 MG Tablet PO (08:08)
[2023-03-04] MEDS: traMADol 50 MG Tablet PO ×2 (10:25→17:00)
[2023-03-04] MEDS: Ascorbic Acid 500 MG Tablet 1000 MG PO (12:07)
[2023-03-04] MEDS: Ferrous Sulfate 325 MG Tablet PO (12:07)
[2023-03-04 19:27] VITALS: BP 110/46; PULSE 78; RESP 15; TEMP 37; O2SAT 96
[2023-03-04] MEDS: DESMOPRESSIN ACETATE 0.2 MG TABLET 0.6 MG PO (21:38)
[2023-03-04] MEDS: traZODone 50 MG Tablet PO (21:39)
[2023-03-04] MEDS: Gabapentin 300 MG Capsule PO (21:39)
[2023-03-04] MEDS: Atorvastatin Calcium 10 MG Tablet PO (21:39)
[2023-03-05] MEDS: traMADol 50 MG Tablet PO (06:04)
[2023-03-05] MEDS: Acetaminophen 500 MG Tablet 1000 MG PO (06:04)
[2023-03-05 06:23] VITALS: BMI 23.4
[2023-03-05 07:50] VITALS: BP 136/61; PULSE 79; RESP 16; TEMP 36.3; O2SAT 96
[2023-03-05] MEDS: Folic Acid 1 MG Tablet PO (08:32)
[2023-03-05] MEDS: Aspirin E.C. 81 MG Tablet PO (08:32)
[2023-03-05] MEDS: Citalopram 20 MG Tablet PO (08:32)
[2023-03-05] MEDS: Enoxaparin 40 MG/0.4 ML Syringe SC (08:32)
[2023-03-05] MEDS: Gabapentin 100 MG Capsule 200 MG PO ×2 (08:32→11:46)
[2023-03-05] MEDS: Multivitamins,Therapeutic Tablet 1 TABLET PO (08:32)
[2023-03-05] MEDS: Pantoprazole Sodium 20 MG Tablet PO (08:32)
--- NOTE | 2023-03-05 09:55 | DCINST_ITS ---
Discharge Instructions Diet Discharge Diet: - (Low fat) Activity Discharge Activity: May Not Drive, May Shower and Use Walker Weight Bearing Status: Full weight bearing Keep extremity elevated above heart level: Right Leg Dressing / Incision Call your doctor if your incision/area has: Continuous Slow Oozing, Sudden Increased Bleeding, Increased Pain/ Swelling, Increased Redness, Foul Smelling Discharge and Swelling at the incision site Call your doctor if you observe: Fever of 101 or Higher, Shortness of breath, Dizziness, Fainting spells, Swelling in the ankles, Chest pain, Increased palpitations (irregular heartbeat), Calf discomfort and Uncontrolled pain Cleanse incision/area with: Soap & Water and - (No tub bathes until approved by orthopedics. ) Additional Dressing/Incision Instructions:: No dressing is needed but, if it makes you more comfortable you can use a light dry dressing. Keep the dressing dry. Follow Up Care Please Follow Up With: Melissa Laura MD When: You will also need to follow up with the surgeon, Dr. Paulino. Appts are listed at the end of this document. Test Results: Test results from this visit will be discussed in further detail at your follow- up appointment, if applicable. Pending Tests Upon Discharge: none Discharge Plan Admission Admit Date/Time: 02/19/23 18:30 Primary Reason for Your Visit: Debility due to fractured R hip with nailing. Attending Provider: Yuli Hernandez Primary Care Provider: Melissa Laura Instructions Patient Instructions: Common Myths About Pain Medications, Managing Chronic Pain: Medicines, Caring for Your Incision Additional Instructions / Restrictions: 1. You have had a lot of pain related to the fracture. 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 Currently you are taking Tylenol 1,000 mg every 8 hours, Gabapentin 300 mg 3 times a day (for nerve pain), Tramadol 50-100 mg every 6 hours as needed and Oxycodone every 6 hours as needed......you have not taken any Oxy since the . You have been weaning down the pain medication and that is good. 2. You have been getting shots once a day while in rehab to prevent blood clots in the R leg. When you go home you will not need the shots but, you will be on aspirin 81 mg twice a day through 03/17/23. On 03/18/23 you can go back to aspirin 81 mg once a day. Take the aspirin with food so that it does not bother your stomach. 3. You lost some blood with the fracture and the surgery and so you have anemia but, your blood count has improved while you are on rehab. We have you on iron to help build more red blood cells. When you take a medication like Famotidine it blocks acid secretion in the stomach BUT, acid is needed to absorb iron into your body. Take the iron with a meal and take the vitamin C at the same time you take the iron to help the iron to be better absorbed. 4. You have done great in rehab and worked very hard. I know that it has been painful. Make sure to get up and move at least once an hour at home and do the exercises give to you by the therapists at least once a day......2 times a day would be better. DON'T be tempted to overdue when you get home......if you are having increased pain or fatigue sit down. It takes a bone probably 8 weeks to heal at your age and you need to allow time for rehab. It has been a pleasure meeting you and I wish you good luck with your recovery. If you or your family have any questions or concerns after you leave rehab please do not hesitate to call me. OFFICE: [phone] CELL: [phone] I will be out of the office until Friday this week so please call my cell if you need to talk with me. Discharge Orders/Prescriptions Prescriptions: New ferrous sulfate [FeroSul] 325 mg (65 mg iron) Tablet 325 mg PO DAILY@1200 Qty: 30 0RF tramadol 50 mg Tablet 50 - 100 mg PO Q6H PRN PRN (Reason: PAIN 3-10) 7 Days Qty: 42 0RF gabapentin 300 mg Capsule 300 mg PO 2100 Qty: 90 0RF trazodone 50 mg Tablet 50 mg PO 2099 Qty: 30 0RF Continued desmopressin 0.2 mg tablet 0.1 mg PO QHS folic acid 1 MG tablet 1 mg PO DAILY@0800 cholecalciferol (vitamin D3) [Vitamin D3] 1,000 UNIT tablet 1,000 unit PO MOFR Hold Instructions: not on MAR multivitamin with folic acid [Thera] 1 TABLET tablet 1 tab PO DAILY methotrexate sodium 2.5 MG tablet 6 tab PO WE Rx Instructions: on wednesdays Enbrel 50 MG/ML syringe 50 mg SQ .Fri Patient Comments: Spouse to bring in POM ascorbic acid (vitamin C) 1,000 mg Tablet 1 g PO DAILY acetaminophen [Acetaminophen Pain Relief] 500 mg tablet 1,000 mg PO Q8H famotidine [Pepcid] 20 mg tablet 20 mg PO BID aspirin 81 MG tablet,delayed release (DR/EC) 81 mg PO DAILY Qty: 1 0RF Patient Comments: Rx Instructions: You will take Aspirin 81 mg twice a day until 03/17/23 and then decrease to once daily. citalopram 20 mg tablet 20 mg PO DAILY Qty: 90 3RF simvastatin 20 mg tablet See Rx Instructions .ROUTE .COMPLEX Qty: 90 3RF Dose Instruction: TAKE 1 TAB BY MOUTH AT BEDTIME FOR CHOLESTEROL Rx Instructions: TAKE 1 TAB BY MOUTH AT BEDTIME FOR CHOLESTEROL Changed oxycodone 5 mg capsule 5 mg PO Q6H PRN (Reason: pain) 7 Days Qty: 14 0RF Rx Instructions: Take with food to help prevent nausea Discontinued enoxaparin 40 mg/0.4 mL syringe 40 mg subcut DAILY polyethylene glycol 3350 17 gram powder in packet 17 g PO DAILY sennosides-docusate sodium [Senna with Docusate Sodium] 8.6-50 mg tablet 2 tab-cap PO BID Referrals / Follow Up: citlaly paulino [Other] - 03/13/23 10:30 am ([facility] Orthopedics ([facility] (POB))) x,ray [Other] - 03/05/23 3:00 pm Jorge L Jack PA-C [Other] - 03/05/23 3:30 pm ([facility] ( Office Visit) ) Melissa Laura MD [Primary Care Provider] - 03/24/23 9:15 am Disposition Disposition (needs filled in before D/C Order can be placed): Home Health Service
--- NOTE | 2023-03-05 10:46 | DS.PCM_ITS ---
Providers Date of Admission: 02/19/23 Date of Discharge: 03/05/23 Primary Care Physician: Dr. Melissa Laura MD Reason For Visit: RIGHT HIP FRACTURE Diagnosis Discharge Diagnosis (1) Debility: Status: Acute Code(s): R53.81 - Other malaise (2) Closed right hip fracture: Status: Acute Code(s): S72.001A - Fracture of unspecified part of neck of right femur, initial encounter for closed fracture Qualifiers: Encounter type: subsequent encounter Fracture healing: with routine healing Qualified Code(s): S72.001D - Fracture of unspecified part of neck of right femur, subsequent encounter for closed fracture with routine healing (3) History of open reduction and internal fixation (ORIF) procedure: Status: Acute Code(s): Z98.890 - Other specified postprocedural states Plan: Intramedullary nailing R hip. Has follow up scheduled with Dr. Paulino. (4) Hallucinations: Status: Resolved Code(s): R44.3 - Hallucinations, unspecified Plan: Resolved with discontinuing Oxycodone 10 mg every 6 hours. She has been tapering down the pain medication use and is taking Tramadol 2-3 times a day. She has not taken any Oxycodone since 03/03/23. We were using 5 mg every 6 HR as needed for breakthrough pain. (5) Constipation: Status: Resolved Code(s): K59.00 - Constipation, unspecified Qualifiers: Constipation type: drug induced constipation Qualified Code(s): K59.03 - Drug induced constipation Plan: Resolved (6) Acute blood loss anemia: Status: Acute Code(s): D62 - Acute posthemorrhagic anemia Plan: Stool is heme negative. HGB was 8.9 and is now up to 9.9. She is taking iron once a day with ascorbic acid. (7) Rheumatoid arthritis: Status: Chronic Code(s): M06.9 - Rheumatoid arthritis, unspecified Qualifiers: Rheumatoid arthritis location: unspecified site Rheumatoid factor presence: unspecified presence Qualified Code(s): M06.9 - Rheumatoid arthritis, unspecified (8) Radicular leg pain: Status: Acute Code(s): M54.10 - Radiculopathy, site unspecified Plan: R leg, groin, thigh and R lateral calf......improved greatly with Gabapentin. She is going home on Gabapentin 300 mg TID. Plan 1. DC home with [facility]. 2. Has follow up scheduled with Dr. Laura, Dr. Paulino and with PA from neurosurgery to recheck for C1 arch fracture. she has no neck pain and she had no swelling on the CT of the neck. I suspect the fracture is not acute. She had been wearing a [place] J collar which impaired her ability to sleep at night due to discomfort. She is wearing a soft collar at night but, was advised to use the [place] J collar when she is out of bed and active until she sees neurosurgery. 3. ASA 81 mg BID until 03/17/23 for DVT prophylaxis and then decrease to once a day with food. Medications at Discharge Home Medications cholecalciferol (vitamin D3) 25 mcg (1,000 unit) tablet (Vitamin D3) 1,000 unit PO MOFR supplement 09/01/15 folic acid 1 mg tablet 1 mg PO DAILY@0800 supplement 09/01/15 multivitamin with folic acid 400 mcg tablet (Thera) 1 tab PO DAILY supplement 09/01/15 etanercept 50 mg/mL (1 mL) subcutaneous syringe (Enbrel) 50 mg SQ ., FRI RA 01/21/17 methotrexate sodium 2.5 mg tablet 6 tab PO WE RA 01/21/17 ascorbic acid (vitamin C) 1,000 mg tablet 1 g PO DAILY SUPPLEMENT 03/21/21 desmopressin 0.2 mg tablet 0.1 mg PO QHS urination 04/30/22 citalopram 20 mg tablet 20 mg PO DAILY depression #90 tabs 08/15/22 simvastatin 20 mg tablet See Rx Instructions .Route .COMPLEX cholesterol #90 tabs 11/08/22 acetaminophen 500 mg tablet (Acetaminophen Pain Relief) 1,000 mg PO Q8H pain 1- 10 02/19/23 famotidine 20 mg tablet (Pepcid) 20 mg PO BID heartburn 02/19/23 aspirin 81 mg tablet,delayed release 81 mg PO DAILY heart health #1 TAB 03/05/23 ferrous sulfate 325 mg (65 mg iron) tablet (FeroSul) 325 mg PO DAILY@1200 #30 tabs 03/05/23 gabapentin 300 mg capsule 300 mg PO 2100 #90 caps 03/05/23 oxycodone 5 mg capsule 5 mg PO Q6H PRN pain 7 days #14 caps 03/05/23 tramadol 50 mg tablet 50 - 100 mg (1 - 2 x 50 mg) PO Q6H PRN PRN PAIN 3-10 7 days #42 tabs 03/05/23 trazodone 50 mg tablet 50 mg PO 2100 #30 tabs 03/05/23 Hospital Course Operations - (Intramedullary nailing of the right hip on 02/17/[address] Paulino.) Procedures None Summary of Care Provided Minutes Spent on Discharge: 35 Hospital Course: CHARMAINE DÍAZ, is a 77 YO F with a past medical history of anxiety/depression/dysthymia, breast cancer ([address] Martin yearly), GERD, large hiatal hernia, history of hepatitis, hyperlipidemia, interstitial cystitis, bladder ulcers (sees Dr. Conway - possibly due to Enbrel), bladder neoplasm, osteoporosis, diverticulosis, cholelithiasis, internal hemorrhoids and rheumatoid arthritis (diagnosed in her 40's) who presented to the emergency department at [facility] on 02/16/2023 stating that she had tripped on a step walking up a ladder to her attic and then fell backwards down 2 steps and landed on her right hip. The hip had a deformity and she was unable to bear weight. CT brain showed no underlying fracture. There was soft tissue swelling on the left forehead. CT of the cervical spine showed a fracture of the anterior arch of C1 with no prevertebral soft tissue swelling seen. She had no neck pain. There was bilateral facet arthropathy and scattered levels of foraminal stenosis. Pelvis and right hip x-ray showed a comminuted and impacted right intertrochanteric fracture with displacement of the lesser trochanter medially. She was transferred to [facility] to be seen by neurosurgery and orthopedic surgery. Neurosurgery thought the C1 anterior arch fracture was possibly chronic but recommended full-time use of a cervical collar for 2 weeks until her outpatient visit with neurosurgery. Dr. Paulino took her to surgery on 02/17/2023 for repair of the right hip fracture with an intramedullary nail. Postoperatively she was seen by PT/OT and acute rehab was recommended at discharge. She was admitted to the acute inpatient rehab unit at [facility] on 02/20/2023 for 3 hours of therapy daily to restore function/independence at or near her level prior to the fall/hip fracture. While at [facility] she had a CTA of her head/neck that showed no large vessel occlusion or high-grade arterial stenosis. There was an age- indeterminate fracture of the anterior arch of C1 but a relative lack of adjacent soft tissue swelling which was more consistent with chronic fracture. She had no neck pain. There was a 1.1 cm peripherally calcified nodule in the left thyroid. Malathi was having hallucinations and nausea/vomiting due to 10 mg doses of oxycodone at admission. She was transition to tramadol and hallucinations resolved. She tolerated tramadol 100 mg every 6 hours as needed for pain without any adverse side effects. She continues to complain of pain in the right anterior thigh and lateral right calf. This pain increased with sitting and was thought to be radicular. She was started on gabapentin which significantly improve this pain. I am quite sure that the decreased mobility and prolonged sitting contributed to an exacerbation of the pain from RA. She continued to have some pain after physical therapy sessions and we had to add 5 mg of oxycodone every 6 hours as needed. This was effective and she was comfortable. She continued to complain of difficulty sleeping despite trazodone. The [place] J collar was quite uncomfortable and she was waking up frequently to adjust. Because there was no swelling on the CT scan of her neck in the emergency room at presentation and she had no neck pain we felt the fracture was likely not new. She was placed in a soft collar when she was in bed and this was much more comfortable and allowed her to get good sleep at [facility]. Lab 1 day prior to discharge showed the hemoglobin had improved to 9.9 from 8.9 on 02/25/2023. A hemoccult stool was negative while she was on rehab. The white blood cell count and platelet count were within normal limits. Sodium was 136 and the potassium was 4.2. The BUN was 19 with a stable creatinine at 0.68. Magnesium was 2.0 and the calcium was within normal limits. Iron studies were done during her admission and the serum iron saturation was 17.7% which is low normal. She was started on iron sulfate 325 mg daily given with 1000 mg of ascorbic acid to promote better GI absorption in this patient who is chronically on a PPI for GERD and a large hiatal hernia. Prior to discharge Malathi's pain was well controlled and she was able to taper down the amount of tramadol she was taking. She had not had an oxycodone since 03/03/2023. She was sleeping well at night and wearing the soft collar most of the time although we advised her to wear the [place] J collar when out of the bed until she saw neurosurgery. She denied Neck pain and cephalgia. At the time of discharge she was independent with eating and supervision/set up for grooming, upper body dressing and toileting. She was standby assist for toilet transfer, tub/shower transfer and LB dressing. She needed minimal help with bathing. Her spouse was brought in for training prior to discharge. She was able to do a 4 inch curb step x 2 reps with a front wheel walker at contact- guard assist. She can do 7 sit to stands in 30 seconds with the use of her upper extremities. She has ambulated 138 feet with a front wheel walker at contact-guard assist and had picked up her pain significantly. Malathi was disc harged home on 03/05/2023 and will have home health care. She has been having difficulty getting in and out of the car. When she gets stronger and is able to easily get in and out of the car she should be transitioned to OP therapy at [facility]. DME included a FWW. Appointments were scheduled for Malathi with Dr. Paulino, Dr. Laura and LUIZ Renner at the [facility]. Malathi is taking Citalopram for anxiety/depression. She has chronic pain from RA and it gets worse with cold damp weather. We discussed switching the Citalopram to an SSRI/ANTOINE and she will discuss this with Dr. Laura to see if this would be good for her. She also probably needs to have some Tramadol at home to use for the days when the RA pain is exacerbated by cold damp weather. Physical Exam Const alert, oriented x3 and no apparent distress Constitutional Narrative: Sitting in the recliner and appears comfortable. General Appearance: cooperative, well kempt and well developed Orientation / Consciousness: Negative for confused HEENT moist oral mucous membranes Eyes PERRL, EOMs intact bilaterally, conjunctivae normal and no scleral icterus Neck Neck Narrative: Cannot examine the neck because she has a cervical collar on that is not to be removed. Chest Chest: symmetrical chest wall rise Resp normal respiratory effort, normal air movement, no use of accessory muscles and clear to auscultation bilaterally Resp Narrative: No conversational dyspnea Effort and Inspection: Negative for tachypneic or labored Cardio regular rate, regular rhythm, S1 normal heart sound, S2 normal heart sound, no murmurs, no rub and no gallops Cardio Narrative: No ectopy GI normal to inspection, nondistended, normoactive bowel sounds, soft to palpation, non-tender and non-distended GI Narrative: Having regular BM's. no CVA tenderness Extremity Negative for no calf tenderness Extremity Narrative: She has calf tenderness only in the R lateral calf and this is due to radicular pain. She has joint deformities due to RA....most notable in her hands. There were no red/hot joints at DC. General Extremity: Negative for edema Skin Skin Narrative: No rashes, no skin breakdown. She has an incision of the R hip. She is hernandez and spends a lot of time in the pool in the summer. General Skin Exam: no breakdown Rashes: no rashes Neuro oriented x3, CN's II-XII intact bilaterally, no focal motor deficits and no sens ory deficits noted Speech: speech normal Psych cooperative and affect normal Psych Narrative: Appropriate, making good eye contact. Able to stay on topic and focus. No flight of ideas. Does not appear anxious or depressed. Conversant and relating well to staff. Very pleasant. Attitude: calm Weight / BMI Weight Weight: 124 lb 1.924 oz Body Mass Index (BMI) 23.4 ABG / Lab / Microbiology Data 03/04/23 05:37 03/04/23 05:37 Microbiology: Microbiology 02/26/23 17:45 Stool Stool Occult Blood (BEKAH) - Final D/C Instructions Discharge Diet: - (Low fat) Weight Bearing Status: Full weight bearing Keep extremity elevated above heart level: Right Leg Call your doctor if your incision/area has: Continuous Slow Oozing, Sudden Increased Bleeding, Increased Pain/ Swelling, Increased Redness, Foul Smelling Discharge and Swelling at the incision site Call your doctor if you observe: Fever of 101 or Higher, Shortness of breath, Dizziness, Fainting spells, Swelling in the ankles, Chest pain, Increased palpitations (irregular heartbeat), Calf discomfort and Uncontrolled pain Cleanse incision/area with: Soap & Water and - (No tub bathes until approved by orthopedics. ) Additional Dressing/Incision Instructions: No dressing is needed but, if it makes you more comfortable you can use a light dry dressing. Keep the dressing dry. Pending Tests Upon Discharge: none Please Follow Up With: Melissa Laura MD When: You will also need to follow up with the surgeon, Dr. Paulino. Appts are listed at the end of this document. Meaningful Use Info Meaningful Use Diagnoses (Choose all that apply): None applicable Discharge Plan Admission Admit Date/Time: 02/19/23 18:30 Primary Reason for Your Visit: Debility due to fractured R hip with nailing. Attending Provider: Yuli Hernandez Primary Care Provider: Melissa Laura Instructions Patient Instructions: Common Myths About Pain Medications, Managing Chronic Pain: Medicines, Caring for Your Incision Additional Instructions / Restrictions: 1. You have had a lot of pain related to the fracture. 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 Currently you are taking Tylenol 1,000 mg every 8 hours, Gabapentin 300 mg 3 times a day (for nerve pain), Tramadol 50-100 mg every 6 hours as needed and Oxycodone every 6 hours as needed......you have not taken any Oxy since the . You have been weaning down the pain medication and that is good. 2. You have been getting shots once a day while in rehab to prevent blood clots in the R leg. When you go home you will not need the shots but, you will be on aspirin 81 mg twice a day through 03/17/23. On 03/18/23 you can go back to aspirin 81 mg once a day. Take the aspirin with food so that it does not bother your stomach. 3. You lost some blood with the fracture and the surgery and so you have anemia but, your blood count has improved while you are on rehab. We have you on iron to help build more red blood cells. When you take a medication like Famotidine it blocks acid secretion in the stomach BUT, acid is needed to absorb iron into your body. Take the iron with a meal and take the vitamin C at the same time you take the iron to help the iron to be better absorbed. 4. You have done great in rehab and worked very hard. I know that it has been painful. Make sure to get up and move at least once an hour at home and do the exercises give to you by the therapists at least once a day......2 times a day would be better. DON'T be tempted to overdue when you get home......if you are having increased pain or fatigue sit down. It takes a bone probably 8 weeks to heal at your age and you need to allow time for rehab. It has been a pleasure meeting you and I wish you good luck with your recovery. If you or your family have any questions or concerns after you leave rehab please do not hesitate to call me. OFFICE: [phone] CELL: [phone] I will be out of the office until Friday this week so please call my cell if you need to talk with me. Discharge Orders/Prescriptions Prescriptions: New ferrous sulfate [FeroSul] 325 mg (65 mg iron) Tablet 325 mg PO DAILY@1200 Qty: 30 0RF tramadol 50 mg Tablet 50 - 100 mg PO Q6H PRN PRN (Reason: PAIN 3-10) 7 Days Qty: 42 0RF gabapentin 300 mg Capsule 300 mg PO 2100 Qty: 90 0RF trazodone 50 mg Tablet 50 mg PO 2100 Qty: 30 0RF Continued desmopressin 0.2 mg tablet 0.1 mg PO QHS folic acid 1 MG tablet 1 mg PO DAILY@0800 cholecalciferol (vitamin D3) [Vitamin D3] 1,000 UNIT tablet 1,000 unit PO MOFR Hold Instructions: not on MAR multivitamin with folic acid [Thera] 1 TABLET tablet 1 tab PO DAILY methotrexate sodium 2.5 MG tablet 6 tab PO WE Rx Instructions: on wednesdays Enbrel 50 MG/ML syringe 50 mg SQ ., FRI Patient Comments: Spouse to bring in POM ascorbic acid (vitamin C) 1,000 mg Tablet 1 g PO DAILY acetaminophen [Acetaminophen Pain Relief] 500 mg tablet 1,000 mg PO Q8H famotidine [Pepcid] 20 mg tablet 20 mg PO BID aspirin 81 MG tablet,delayed release (DR/EC) 81 mg PO DAILY Qty: 1 0RF Patient Comments: Rx Instructions: You will take Aspirin 81 mg twice a day until 03/17/23 and then decrease to once daily. citalopram 20 mg tablet 20 mg PO DAILY Qty: 90 3RF simvastatin 20 mg tablet See Rx Instructions .ROUTE .COMPLEX Qty: 90 3RF Dose Instruction: TAKE 1 TAB BY MOUTH AT BEDTIME FOR CHOLESTEROL Rx Instructions: TAKE 1 TAB BY MOUTH AT BEDTIME FOR CHOLESTEROL Changed oxycodone 5 mg capsule 5 mg PO Q6H PRN (Reason: pain) 7 Days Qty: 14 0RF Rx Instructions: Take with food to help prevent nausea Discontinued enoxaparin 40 mg/0.4 mL syringe 40 mg subcut DAILY polyethylene glycol 3350 17 gram powder in packet 17 g PO DAILY sennosides-docusate sodium [Senna with Docusate Sodium] 8.6-50 mg tablet 2 tab-cap PO BID Referrals / Follow Up: citlaly paulino [Other] - 03/13/23 10:30 am (Post Op Orthopedics ([facility] (POB))) x,ray [Other] - 03/05/23 3:00 pm Jorge L Jack PA-C [Other] - 03/05/23 3:30 pm ([facility] ( Office Visit) ) Melissa Laura MD [Primary Care Provider] - 03/24/23 9:15 am Disposition Disposition (needs filled in before D/C Order can be placed): Home Health Service Charges/Coding Visit Charges Inpatient E&M: 52208 Disch Hosp >30min
[2023-03-05] MEDS: Ascorbic Acid 500 MG Tablet 1000 MG PO (11:46)
[2023-03-05] MEDS: Ferrous Sulfate 325 MG Tablet PO (11:46)
[2023-03-05] MEDS: oxyCODONE 5 MG Tablet PO (11:46)
[2023-03-05 12:43] VITALS: BP 136/61; PULSE 79; RESP 16; TEMP 36.3; O2SAT 96
--- NOTE | 2023-03-05 12:47 | NURSING ---
discharge home with son. discharge instruction, medications and appointments reviewed with pt and son. denies questions or concerns
== END 2023-03-05 12:15 | disposition home health service (06) | DRG 560 ==
PROVIDERS: Admitting Provider Internal Medicine; PCP Internal Medicine; Visit Provider Internal Medicine
DX: S72.141D Displaced intertrochanteric fracture of right femur, subsequent encounter for closed fracture with routine healing (principal); D62 Acute posthemorrhagic anemia; M06.9 Rheumatoid arthritis, unspecified; E04.1 Nontoxic single thyroid nodule; M48.00 Spinal stenosis, site unspecified; K21.9 Gastro-esophageal reflux disease without esophagitis; E78.00 Pure hypercholesterolemia, unspecified; F41.9 Anxiety disorder, unspecified; K44.9 Diaphragmatic hernia without obstruction or gangrene; W10.9XXD Fall (on) (from) unspecified stairs and steps, subsequent encounter; F32.A Depression, unspecified; S12.000D Unspecified displaced fracture of first cervical vertebra, subsequent encounter for fracture with routine healing; Z79.82 Long term (current) use of aspirin; M81.0 Age-related osteoporosis without current pathological fracture; Z79.01 Long term (current) use of anticoagulants; Z79.899 Other long term (current) drug therapy
CPT/HCPCS: 36415; 80048; 80053; 82274; 82728; 83540; 83550; 83735; 84100; 85014; 85018; 85025; 85027; 93971; 94668; 97110; 97116; 97150; 97162; 97166; 97530; 97535; 97802; 97803

== ENCOUNTER → 2023-03-18 | Outpatient (CLI) | payer MEDICARE, OTHER, SELFPAY ==
--- NOTE | 2023-03-18 13:02 | RAD_ITS ---
INDICATION: KUB NOCTURIA EXAMINATION/TECHNIQUE: X-RAY - XR Abdomen 1 View COMPARISON: XRAY pelvis 02/16/2023 FINDINGS: The bowel gas pattern is normal. There is no bowel obstruction. Moderate amount stool throughout the colon. No abnormal mass or calcification is seen. Implanted device overlying the right hip electrode overlying the right hemisacrum unchanged. Surgical hardware in the right hip transfixing the right intertrochanteric fracture partially included. The lung bases are not well assessed. RAD/Abdomen Single View IMPRESSION: Non-obstructive bowel gas pattern. Electronically Signed: Kelsy Martin MD at 3:19 EDT ,
== END | disposition home or self-care (01) ==
LOC: MTRAD 13:00
PROVIDERS: PCP Internal Medicine; Referring Provider Urology; Visit Provider Urology
DX: R35.1 Nocturia (principal)
CPT/HCPCS: 74018

== ENCOUNTER → 2023-04-07 | Outpatient (CLI) | payer MEDICARE, OTHER, SELFPAY ==
[2023-04-07 16:34] LABS: Absolute Lymphocyte Count 2.17 X10^3/uL (0.83-4.51); Absolute Neutrophil Count 4.9 X10^3/uL (2.0-7.7); Basophil# 0.04 X10^3/uL; Basophil% 0.5 % (0-1); Eosinophil# 0.11 X10^3/uL; Eosinophils% 1.4 % (0-5); Hemoglobin 12.8 g/dL (12.0-15.0); Lymphocyte # 2.17 X10^3/ul (0.83-4.51); Lymphocyte % 27.6 % (19-41); Mean Corp Hgb Conc 31.2 g/dL (32-36); Mean Corpuscular Hgb 30.5 pg (27.0-32.0); Mean Corpuscular Volume 97.9 fL (81-99); Mean Platelet Vol. 10.2 fl (6.2-12.0); Monocyte# 0.62 X10^3/uL; Monocyte% 7.9 % (0-10); NRBC Flagged by Analyzer 0 % (0-5); Neutrophil # 4.91 X10^3/uL (2.7-7.7); Neutrophil % 62.3 % (47-70); Platelet Count 232 K/mm3 (150-450); RBC Distribution Width CV 14.4 % (11.6-14.6); RBC Distribution Width SD 51.6 fl (35.1-43.9); Red Blood Count 4.19 M/mm3 (4.2-5.4); White Blood Count 7.9 K/mm3 (4.4-11.0)
[2023-04-07 16:55] LABS: ALB/GLOB Ratio 1.2 RATIO (0.9-2.4); AST(SGOT) 15 U/L (15-37); Alanine Aminotransfer ALT/SGPT 21 U/L (13-56); Albumin, Serum 3.8 g/dL (3.2-5.0); Alkaline Phosphatase 68 U/L (45-117); Anion Gap 8 (5-15); BUN 18 mg/dL (7-18); BUN/Creat Ratio 20.8 RATIO (10-20); Calcium,Total 9.4 mg/dL (8.5-10.1); Chloride 104 mmol/L (98-107); Cholesterol 135 mg/dL (200); Creatinine, Serum 0.86 mg/dL (0.55-1.02); EST Glomerular Filtration Rate 68 mL/min (>60); Est Glom Filt Rate - Afr Amer 82 mL/min (>60); Globulin 3.3 g/dL (2.2-4.2); Glucose 92 mg/dL (74-106); High Density Lipoprotein 54 mg/dL; Potassium 4.7 mmol/L (3.5-5.1); Protein, Total 7.1 g/dL (6.4-8.2); Sodium Level 134 mmol/L (136-145); Triglycerides 142 mg/dL; Very Low Density Lipoprotein 28 mg/dL (5-40)
== END | disposition home or self-care (01) ==
LOC: BIMLAB 14:41
PROVIDERS: PCP Internal Medicine; Referring Provider Internal Medicine; Visit Provider Internal Medicine
DX: F41.9 Anxiety disorder, unspecified (principal); F32.A Depression, unspecified; E78.2 Mixed hyperlipidemia; N30.10 Interstitial cystitis (chronic) without hematuria
CPT/HCPCS: 36415; 80053; 80061; 85025

== ENCOUNTER → 2023-04-15 | Outpatient (CLI) | payer MEDICARE, OTHER, SELFPAY ==
--- NOTE | 2023-04-15 14:06 | BD_ITS ---
STUDY: DUAL ENERGY X-RAY ABSORPTIOMETRY / DXA REASON FOR EXAM: Female, 77 years old. Post menopausal TECHNIQUE: Bone Mineral Density (BMD) measurements of lumbar spine and left hip were obtained. COMPARISON: None. FINDINGS: Lumbar Spine (L1-L4): g/cm2 (0.846) / T-score (-1.6) / Z-score (0.9) Findings are suggestive of osteopenia with a moderate fracture risk. Left Femur Total: g/cm2 (0.648) / T-score (-2.4) / Z-score (-0.6) Left Femoral Neck: g/cm2 (0.590) / T-score (-2.3) / Z-score (-0.2) BD/Dexa Bone Density Study IMPRESSION: The patient is considered osteopenic as outlined below according to World [employer] Organization (WHO) criteria with a high fracture risk. Reference Information: The T-score is the number of standard deviations above or below the standard which is normal for young adults at their peak bone mineral density. The World Health Organization (WHO) interprets the T-scores as follows: Above -1 Normal bone density Between -1 and -2.5 Osteopenia Equal to / or below -2.5 Osteoporosis As a practical clinical guideline, osteopenia may be graded as follows: Mild -1 through -1.5 Moderate -1.6 through -2.0 Severe -2.1 through -2.4 The Z-score is the number of standard deviations above or below age-matched controls. A Z-score of less than -1.5 would be considered abnormal. References: 1. NIH Osteoporosis and Related Bone Diseases www osteo.org 2. International Society for Clinical Densitometry www iscd.org 3. National Osteoporosis Foundation www nof.org Electronically Signed: Ramiro Gilman MD at 14:51 EDT ,
== END | disposition home or self-care (01) ==
LOC: OPBD 14:00
PROVIDERS: PCP Internal Medicine; Referring Provider Internal Medicine; Visit Provider Internal Medicine
DX: Z78.0 Asymptomatic menopausal state (principal)
CPT/HCPCS: 77080

== ENCOUNTER 2023-06-10 13:00 | Outpatient (RCR) | payer MEDICARE, OTHER, SELFPAY ==
--- NOTE | 2023-05-14 15:45 | HP.PTEVAL ---
Patient's Visit Information Visit Information Visit Information: CHARMAINE DÍAZ is a 77 year old F referred to Physical Therapy by MIKE DE ANDA with a diagnosis of Closed Displaced Intertroch Fx of Right Femur (02/18/23). Date of Evaluation: 05/14/23 Physical Therapist: Rosaura Bates DPT Visit Plan Frequency: 2-3x /Week Duration: 4 Weeks Plan: Right Femur Fx with Nailin02/18/23 Focus on LE strength and proprioception with functional mobility (stairs and gait) Subjective Subjective: February 17 fell off a ladder and broke right hip- immediately to [facility] and Dr. De Anda did a nailing February 18- they took her back to rehab and then home health and they finished at the end of March and sent her to outpatient. She lives in a single story home- with no stairs to enter and 2 stairs to enter through the garage and she can navigate those okay. She was fully I prior to the fall. She does not drive anymore. She is having pain in the hip. She was told the pain could last 6 months. The pain is in the groin and shoots to the outside of the right lateral gary. She does not have any more pain medication. Worst: 6/10 Agg: trying to do too much. Eases: sitting Best: 0/10 but she doesn't like to sit. She is very active. She likes to stay active and like to be out with her and walk. More long distance activities that really bother her. She describes the pain as sharp and shooting. No N/T. MD thinks that its muscles and the hospital told her its nerve pain. Sleep: not disturbed- but very seldom if she turns over it will wake her up with a sharp pain. She feels that she is 75% back to normal. She does do the normal house hold stuff but not a ton more. Goals: build more endurance and decrease pain. She is still doing exercises that home health gave her: HR/TR, marching, abd, ext. PMHx: bladder stimulator- so urologist put her on a probiotic and demopresson and keflex for maintance to update since March. Objective Objective: Posture: Forwards head, rounded shoulders- can correct but does not maintain Gait: antalgic- decreased stance on the right LE- straight cane Observation: significant valgus bilateral LE HR/TR: able with UE A- does weight shift to the left LE SLS: will weight shift with UE ROM: WFL in all planes but does report discomfort in all end range motions of the right hip Strength: Core: fair minus, Left Hip: 4/5 Knee: 4+/5, Ankle:4+/5, Right Hip: Flexion: 3+/5, Extn: 4-/5, Abd: 4/5, Add: 4/5, IR/ER: 3+/5 at neutral, Knee: 4-/5, Ankle: 4-/5 Transfers: sit to stand: requires UE A Flex: HS: severe, Gastroc: severe Special Tests L/S Slump test right side: Positive L/S Right Straight Leg Raise: Positive Balance/Special Test Scores % Disability: 100 CATSIB Score (Max score 120 seconds): 115 Lower Extremity Functional Score: 18 Goals Goal 1:: Patient will report participation in home exercise program activities a minimum of 5 days per week, as adjunct to skilled physical therapy intervention in preparation for independent home management upon discharge. Goal Time Frame: 4-6 Weeks Goal 2:: Patient will decreasing his TUG test to less than 20 seconds with least restrictive device to demonstrate improved balance and increase safety with ADL's Goal Time Frame: 4-6 Weeks Goal 3:: Patient will perform a sit to stand from chair without use of upper extremity x1 repetition to demonstrate increase LE functional strength and ease community mobility Goal Time Frame: 4-6 Weeks Goal 4:: Patient will ascend 4+ stairs reciprocally with a single hand rail to demonstrate increased LE functional strength and ease community mobility Goal Time Frame: 4-6 Weeks Goal 5:: Patient will descend 4+ stairs reciprocally with a single hand rail to demonstrate increased LE functional strength and ease community mobility Goal Time Frame: 4-6 Weeks Goal 6:: Patient will report an increase of 9 points on the LEFS to show minimal clinical significant difference on patients functional outcome measure Goal Time Frame: 4-6 Weeks Rehabilitation Potential Physical Therapy Diagnosis: Patient presents with hypomobility- she has decreased LE and core strength/stabilization, flex, proprioception, and muscular endurance leading to abnormal gait pattern, balance and decreased ability to perform ADL's. Anticipated Interventions Patient/Client Instruction: Educate patient on: Benefits of Fitness Program Therapeutic Exercise to Include: Strength training, Endurance training, Balance training, Coordination, Agility training, Body mechanics, Postural training, Flexibilty training, Gait and locomotor training, Neuromotor development, Dynamic Lumbar Stabilization and Scapular Strength/Stabilization For the Purpose of:: To improve muscle performance and motor function Functional Training to Include: Gait training TENS: Yes Cryotherapy (ice pack, ice massage): Yes Thermo therapy (hot pack): Yes Ultrasound (thermal/non thermal): No For the Purpose of:: To decrease pain Text: Thank you for the opportunity to evaluate your patient. For Medicare and Medicare HMO plans, please review the plan of care and approve it. It will need to be FAXED BACK to us at [phone] for Medicare purposes. For Medicare only, by signing this I certify the plan of care. Please let me know if there are questions or concerns regarding this plan of care. Physician Signature: Date:
--- NOTE | 2023-08-07 09:12 | HP.PT.NRP ---
Patient Information Patient Information: CHARMAINE DAÍZ was seen in my office for initial evaluation on 05/14/23. The following Plan of Care was established for this patient: POC Established Initial Frequency: 2-3x /Week Initial Duration: 4 Weeks Anticipated Interventions Patient/Client Instruction: Educate patient on: Benefits of Fitness Program Therapeutic Exercise to Include: Strength training, Endurance training, Balance training, Coordination, Agility training, Body mechanics, Postural training, Flexibilty training, Gait and locomotor training, Neuromotor development, Dynamic Lumbar Stabilization and Scapular Strength/Stabilization For the Purpose of:: To improve muscle performance and motor function Functional Training to Include: Gait training TENS: Yes Cryotherapy (ice pack, ice massage): Yes Thermo therapy (hot pack): Yes Ultrasound (thermal/non thermal): No For the Purpose of:: To decrease pain Last Seen Last Seen: This patient was last seen in our office . Pertinent comments regarding their Physical therapy will appear below: Patient was to return to MD for further evaluation and has not returned- appropriate to be discharged. At this point I will be discontinuing this patient from physical therapy. I would be happy to see this patient again in the future if found appropriate by the physician. Thank you! Rosaura Bates, DPT Balance/Gait/Functional tests Balance/Special Test Scores % Disability: 100 CATSIB Score (Max score 120 seconds): 115 Lower Extremity Functional Score: 18 Tug Test: 20-30sec.=variable mobility
== END 2023-06-10 19:00 | disposition home or self-care (01) ==
LOC: PT 13:00
PROVIDERS: PCP Internal Medicine
DX: S72.141D Displaced intertrochanteric fracture of right femur, subsequent encounter for closed fracture with routine healing (principal)
CPT/HCPCS: 97110; 97162

== ENCOUNTER → 2023-07-22 | Outpatient (CLI) | payer MEDICARE, OTHER, SELFPAY ==
[2023-07-22 18:27] LABS: Anion Gap 7 (5-15); BUN 26 mg/dL (7-18); BUN/Creat Ratio 37.1 RATIO (10-20); Calcium,Total 9.3 mg/dL (8.5-10.1); Chloride 103 mmol/L (98-107); EST Glomerular Filtration Rate 86 mL/min (>60); Est Glom Filt Rate - Afr Amer 105 mL/min (>60); Glucose 116 mg/dL (74-106); Potassium 4.2 mmol/L (3.5-5.1); Sodium Level 135 mmol/L (136-145)
== END | disposition home or self-care (01) ==
LOC: MTLAB 13:07
PROVIDERS: PCP Internal Medicine; Referring Provider Urology; Visit Provider Urology
DX: N39.44 Nocturnal enuresis (principal)
CPT/HCPCS: 36415; 80048

== ENCOUNTER → 2023-07-24 | Outpatient (CLI) | payer MEDICARE, OTHER, SELFPAY ==
--- NOTE | 2023-07-24 10:44 | BI_ITS ---
MAMMOGRAPHY - BILATERAL SCREENING REASON FOR EXAM: Female, 77 years old. Routine annual screening examination. PERTINENT HISTORY: Personal history of breast cancer. Prior left lumpectomy with chemotherapy and radiation therapy. TECHNIQUE: Digital bilateral breast almita (3D mammographic acquisition) in the CC and MLO projections. 2-D mediolateral oblique (MLO) and craniocaudad (CC) views of both breasts were obtained. CAD: Full Field Digital Mammography with Computer Added Detection was performed. COMPARISON: Comparison is made with prior study dated July 23, 2022 and July 20, 2021. FINDINGS: Breast Composition: The breasts are heterogeneously dense, which may obscure small masses. There are no dominant masses or suspicious calcifications. Stable deformity of the left breast with resultant postoperative scarring. A tissue clip marker is once again seen in the upper lateral portion of the right breast. A battery pack is seen in the right axillary region. No other significant abnormalities are identified. There has been no significant change since the prior study. BI/SCRN MAMM (CAD)W/ALMITA BILAT IMPRESSION: Stable bilateral screening mammogram. Yearly follow-up mammogram recommended. (A) ASSESSMENT CATEGORY: BIRADS Category 2: Benign. A letter regarding these results will be sent to the patient by the facility within 30 days. Approximately 10% of breast cancers are not detected by mammography. A normal mammogram should not delay biopsy of a clinically suspicious abnormality. [id number] Electronically Signed: Ramiro Gilman MD at 12:33 EST ,
== END | disposition home or self-care (01) ==
PROVIDERS: PCP Internal Medicine; Referring Provider Internal Medicine Medical Oncology; Visit Provider Internal Medicine Medical Oncology
DX: Z12.31 Encounter for screening mammogram for malignant neoplasm of breast (principal); Z85.3 Personal history of malignant neoplasm of breast
CPT/HCPCS: 77063; 77067

== ENCOUNTER 2023-08-26 05:56 | Day surgery (SDC) | payer MEDICARE, OTHER, SELFPAY ==
[2023-08-26] VITALS (7 sets, daily range): BP systolic 118–136; BP diastolic 64–84; PULSE 71–92; RESP 16–18; TEMP 36.4–36.6; O2SAT 97–99; BMI 22.6
[2023-08-26] MEDS: Lactated Ringers 1,000 ML 15 ML IV (06:59)
--- NOTE | 2023-08-26 07:14 | HP.PCM_ITS ---
History and Physical Date of Admission: 08/26/23 Date of Service: 08/15/23 MR#: [id number] Acct: [id number] Name: CHARMAINE DÍAZ Rep #: [id number] : 1945 Provider: Dr. Kathryn Lenz MD Age/Sex: 77/F Location: [facility] Status: Signed Intake Vital Signs 07/30/2313:55 08/15/2412:48 Height 5 ft 1 in Weight: 119 lb BP 110/80 Blood Pressure Location Rt brachial Position Sitting Respiration 17 Pulse 84 Pulse Source Monitor Temp 96 F L Temp Source Temporal Pulse Oximetry (%) 95 Oxygen Delivery Method room air Intake Visit Reasons: PORT REMOVAL Chief Complaint: port removal Is patient in pain?: No Allergies vancomycin Allergy (Verified 08/15/23 13:49) RASH, ITCHING, REDNESS Medications cholecalciferol (vitamin D3) 25 mcg (1,000 unit) tablet (Vitamin D3) 1,000 unit PO MOFR supplement 09/01/15 [History Confirmed 08/15/23] folic acid 1 mg tablet 1 mg PO DAILY@0800 supplement 09/01/15 [History Confirmed 08/15/23] multivitamin with folic acid 400 mcg tablet (Thera) 1 tab PO DAILY supplement 09/01/15 [History Confirmed 08/15/23] etanercept 50 mg/mL (1 mL) subcutaneous syringe (Enbrel) 50 mg SQ .TU, FRI RA 01/21/17 [History Confirmed 08/15/23] methotrexate sodium 2.5 mg tablet 6 tab PO WE RA 01/21/17 [History Confirmed 08/15/23] ascorbic acid (vitamin C) 1,000 mg tablet 1 g PO DAILY SUPPLEMENT 03/21/21 [ History Confirmed 08/15/23] desmopressin 0.2 mg tablet 0.1 mg PO QHS urination 04/30/22 [History Confirmed 08/15/23] simvastatin 20 mg tablet See Rx Instructions .Route .COMPLEX cholesterol #90 tabs 11/08/22 [Rx Confirmed 08/15/23] famotidine 20 mg tablet (Pepcid) 20 mg PO BID heartburn 02/19/23 [History Confirmed 08/15/23] aspirin 81 mg tablet,delayed release 81 mg PO DAILY heart health #1 TAB 03/05/23 [Rx Confirmed 08/15/23] trazodone 50 mg tablet 50 mg PO 2100 #30 tabs 03/05/23 [Rx Confirmed 08/15/23] lidocaine-prilocaine 2.5 %-2.5 % topical cream 1 applic topical ONCE PRN port access 30 days #30 grams 05/20/23 [Rx Confirmed 08/15/23] acetaminophen 500 mg tablet (Acetaminophen Pain Relief) 1,000 mg (2 x 500 mg) PO Q8H PRN pain 1-10 3 months #540 tabs 06/09/23 [Rx Confirmed 08/15/23] duloxetine 30 mg capsule,delayed release 30 mg PO BID 3 months #180 caps 06/09/23 [Rx Confirmed 08/15/23] PFSH Medical History Anxiety and depression Arthritis Balance problems Bladder ulcer Breast cancer Cancer Debility Depression Dysuria Fatigue Flu vaccine need Former smoker Fracture of right hip requiring operative repair Gastric reflux Health care maintenance Hepatitis High cholesterol History of breast cancer History of echocardiogram History of hiatal hernia History of stress test Hyperlipidemia Interstitial cystitis med port placement Mononucleosis MRSA infection Neoplasm of unspecified behavior of bladder Nocturia Non-smoker Osteopenia with high risk of fracture Osteoporosis Pain of right lower extremity Pneumonia Port-A-Cath in place Post-menopausal Rheumatoid arthritis Rheumatoid arthritis pain Right-sided chest wall pain Screening for breast cancer Urinary frequency Wears glasses Wears partial dentures Surgical History History of bladder surgery History of bladder surgery History of cystoscopy History of hip surgery Hx of breast lump removal Hx of colonoscopy Previous back surgery Family History Father Diabetes Prostate CAMother Arthritis LupusOther Cancer Heart disease Parkinsons disease Social History household members: spouse current occupational status: retired Smoking Status: Never smoker alcohol intake: never substance use type: does not use HPI HPI HPI: 77-year-old female presents for right subclavian port removal. Patient had placed in 2014 when she had breast cancer. Patient kept in due to poor IV access. Patient has been having it flushed every month. Patient would like it removed. ROS General General: Yes weight change, fatigue and breast cancer; No appetite or colon cancer HEENT HEENT: No difficulty swallowing, eye injury, eye surgery, swollen glands or hoarseness Endo Endocrine: No thyroid disease, diabetes mellitus, thyroid cancer, Hair loss, heat intolerance or cold intolerance Skin Skin: No rash or changing moles Musc Musculoskeletal: Yes back problems, arthritis and rheumatoid arthritis; No gout or joint pain Cardio Cardiovascular: No murmur, pacemaker, heart disease, atrial fibrillation, high blood pressure, heart attack, heart stent, palpitations, shortness of breat with exertion or chest pain Psych Psychiatric: Yes anxiety; No depression or hearing voices Resp Respiratory: No shortness of breath, No sleep apnea, No cough, No COPD, No asthma, No emphysema and No wheezing Gastro Gastrointestinal: No abdominal pain, No nausea or vomiting, No diarrhea, No constipation, No blood in stool, No acid reflux, No hemorrhoids, No ulcers, No gallbladder problem and No black,tarry stools Albert Hematologic: No blood thinners, No blood disorders, No bleeding, No anemia and No blood clots Neuro Neurologic: No numbness and No tingling Exam Const General: cooperative, healthy appearing, comfortable and no acute distress [facility] Head: normocephalic and atraumatic Neck Neck: supple Chest Other: Right subclavian chest port in place incision clean dry and intact well-healed Resp Effort & Inspection: normal respiratory effort Cardio Rate: regular rate GI Inspection: non-distended Skin General: no rashes or lesions noted Neuro General: CN's II-XI intact bilaterally Extrem General: normal to inspection Psych Mental Status: mental status grossly normal Attitude: cooperative Assessment and Plan Assessment and Plan (1) Encounter for adjustment or management of vascular access device: Status: Acute Plan Will plan for removal of right subclavian port. Discussed with patient and her that since this has been in since 2014 would plan to do this in the OR using fluoroscopy. There is a chance that the catheter is adherent to the vessel wall which in case I would not be removing the actual catheter but I would repeat remove the port and secured the catheter in place. Patient and her expressed understanding and had no further questions this time. Kathryn Lenz M.D. Pager: [phone] [facility] [address] [place] [address], [facility], [address] [place] [address] Office: [phone] Coding Level of Care Code Off vis,new,level 3 Diagnoses Encounter for adjustment or management of vascular access device Z45.2 08/18/23 0840 <Electronically signed by Kathryn Lenz MD> Date Kathryn Lenz MD
[2023-08-26] MEDS: Cefazolin 2 GM in 0.9% Normal Saline (100mL Bag) 100 ML IV (07:26)
--- NOTE | 2023-08-26 07:30 | FORE_PTH ---
PATHOLOGY RESULTS PATIENT: CHARMAINE DÍAZ LOC: [facility] U#:[id number] AGE/SX: 77/F ROOM: RE08/26/[address]: Dr. Kathryn Lenz MD : 1945 BED: DIS: 08/26/2023 SPEC #: [id number] RECD: 08/27/23 08:35 STATUS: PARKER ROBB #: [id number] DARIO: 08/26/23 07:[address]: Kathryn Lenz DEPT: SURGICAL PATHOLOGY RECD BY: Makenna Hadley ENTERED: 08/27/23 08:35 SP TYPE: FOREIGN B OTHR DR: Dr. Melissa Laura MD Tissues: FOREIGN BODY Procedures: Surgery Specimen Level I HEADER OPERATION: Right chest port removal PRE-OP DIAGNOSIS: Adjustment or management of vascular access device TISSUE SUBMITTED: Chest port GROSS DIAGNOSIS A port (gross only). JOSE:estrellita 08/28/2023 MICROSCOPIC DESCRIPTION Slides are reviewed. GROSS DESCRIPTION Received in fixative is one container labeled with the patient's name and designated right chest port. The specimen consists of a purple port, triangular in shape, measuring 2.5 x 2.0 x 1.2 cm. Portion of white tube plus catheter is present measuring 1.5 cm in length and 0.2 to 0.5 cm in diameter. Inscription on the port is 4628 , TC and BARD. The specimen is for gross identification only. / JOSE:estrellita 08/27/2023 CPT: 82013
[2023-08-26] MEDS: Lidocaine 1% /Epi 1:100 (20ml) 20 ML Vial (07:39)
--- NOTE | 2023-08-26 07:53 | OP.PCM_ITS ---
Report of Operation Date of Procedure: 08/26/23 Pre-Operative Diagnosis: z45.2 Post-Operative Diagnosis: same Surgery/Procedure Performed:: Removal of right chest port, catheter left in place Surgeon: Kathryn Lenz assistant spa manager: Michelet Morrison Type of Anesthesia: Local MAC Anesthesiologist: Zackary Huang Special Medications: Ancef 2 g IV x 1 Specimen's removed: Right chest port only catheter left in place Estimated Blood Loss (mL): < 5 cc Description of Procedure: Patient was brought to operating placed spine on operating table. A timeout was completed verifying correct patient, seizure, site, positioning, special equipment prior to being procedure. MAC anesthesia was induced. Patient's right chest was prepped and draped in usual sterile fashion with chlorhexidine. 1% lidocaine with epinephrine was used at the incision. Incision was incised with 10 blade scalpel. This was deepened with electrocautery to identify the catheter and the port. Adhesions around the port were removed with the iris scissors. Catheter was also cleaned of adhesions. Under fluoroscopy gentle traction was placed on the catheter however there is no movement of the catheter. Thus it is decided to leave the catheter in place this was sutured in place using interrupted 2-0 Prolene's x 3. Port was removed. Incision was closed with subdermal 3-0 Vicryl sutures. Steri-Strips and OpSite were placed. Patient tolerated procedure well and taken to postanesthesia care unit in stable condition.
--- NOTE | 2023-08-26 07:56 | DCINST_ITS ---
Discharge Instructions Procedure Port-A-Cath Diet Discharge Diet: Light diet - advance as tolerated Activity Discharge Activity: May Shower (after 1 day) Lifting Restrictions: No lifting > 15 pounds for 2 days with the arm on the right Dressing / Incision Call your doctor if your incision/area has: Continuous Slow Oozing, Sudden Increased Bleeding, Increased Pain/ Swelling, Increased Redness, Foul Smelling Discharge and Swelling at the incision site Call your doctor if you observe: Fever of 101 or Higher Change Dressing in: 2 days (2-3 days- prev. port site) Follow Up Care Please Follow Up With: Kathryn Lenz MD When: in 2 weeks call for appt. Test Results: Test results from this visit will be discussed in further detail at your follow- up appointment, if applicable. Discharge Plan Admission Attending Provider: Kathryn Lenz Primary Care Provider: Melissa Laura Discharge Orders/Prescriptions Prescriptions: Continued desmopressin 0.2 mg tablet 0.1 mg PO QHS acetaminophen [Acetaminophen Pain Relief] 500 mg tablet 1,000 mg PO Q8H PRN (Reason: pain 1-10) 90 Days Qty: 540 0RF duloxetine 30 mg capsule,delayed release(DR/EC) 30 mg PO BID 90 Days Qty: 180 1RF folic acid 1 MG tablet 1 mg PO DAILY@0800 cholecalciferol (vitamin D3) [Vitamin D3] 1,000 UNIT tablet 1,000 unit PO MOFR Hold Instructions: not on MAR multivitamin with folic acid [Thera] 1 TABLET tablet 1 tab PO DAILY methotrexate sodium 2.5 MG tablet 6 tab PO WE Rx Instructions: on wednesdays Enbrel 50 MG/ML syringe 50 mg SQ ., FRI Patient Comments: Spouse to bring in POM ascorbic acid (vitamin C) 1,000 mg Tablet 1 g PO DAILY famotidine [Pepcid] 20 mg tablet 20 mg PO BID aspirin 81 MG tablet,delayed release (DR/EC) 81 mg PO DAILY Qty: 1 0RF Patient Comments: Rx Instructions: You will take Aspirin 81 mg twice a day until 03/17/23 and then decrease to once daily. simvastatin 20 mg tablet 20 mg PO QHS Rx Instructions: TAKE 1 TAB BY MOUTH AT BEDTIME FOR CHOLESTEROL lidocaine-prilocaine 2.5-2.5 % cream 1 applic topical ONCE PRN (Reason: port access) 30 Days Qty: 30 2RF Referrals / Follow Up: Melissa Laura MD [Primary Care Provider] - Disposition Disposition (needs filled in before D/C Order can be placed): Home, Self Care
--- NOTE | 2023-08-26 07:56 | RAD_ITS ---
STUDY: X-RAY CHEST REASON FOR EXAM: Female, 77 years old. Port removed- catheter left in place -- pacu TECHNIQUE: Single AP portable view of the chest. COMPARISON: Comparison is made with prior study of February 16, 2023. FINDINGS: A meghan catheter is in situ with the addition of the superior vena cava and right atrium. The port was removed. The catheter was left in place. Hyperinflation. The lungs are clear. There is no demonstrated pleural abnormality. Normal size heart. Normal mediastinum and inna. Normal visualized pulmonary arteries. There is atherosclerotic calcification of the aortic arch with tortuosity. There are degenerative changes of the visualized thoracic spine. Normal visualized ribs, clavicles, and shoulders. Hiatal hernia. RAD/Chest 1 View (Portable) IMPRESSION: The right-sided port has been removed. The catheter has been left in place. Electronically Signed: Ramiro Gilman MD at 9:18 EST ,
== END 2023-08-26 09:13 | disposition home or self-care (01) ==
LOC: SDC 05:58 → AC 05:59
PROVIDERS: PCP Internal Medicine; Referring Provider Surgery; Visit Provider Surgery
PROC: (CPT 36590; principal; 2023-08-26 07:15)
DX: Z45.2 Encounter for adjustment and management of vascular access device (principal); E78.00 Pure hypercholesterolemia, unspecified; Z79.899 Other long term (current) drug therapy; Z85.3 Personal history of malignant neoplasm of breast; Z87.891 Personal history of nicotine dependence
CPT/HCPCS: 36590; 71045; 77001; 88300; J7120

== ENCOUNTER → 2023-12-30 | Outpatient (CLI) | payer MEDICARE, OTHER, SELFPAY ==
[2023-12-30 13:56] LABS: Hepatitis B Surface Antibody Reactive; Hepatitis B Surface Antigen Non-Reactive (Nonreactive)
[2023-12-30 16:15] LABS: ALB/GLOB Ratio 1.1 RATIO (0.9-2.4); AST(SGOT) 14 U/L (15-37); Alanine Aminotransfer ALT/SGPT 17 U/L (13-56); Alkaline Phosphatase 75 U/L (45-117); Anion Gap 13 (5-15); BUN 34 mg/dL (7-18); BUN/Creat Ratio 48.4 RATIO (10-20); Calcium,Total 10.1 mg/dL (8.5-10.1); Chloride 105 mmol/L (98-107); EST Glomerular Filtration Rate 86 mL/min (>60); Est Glom Filt Rate - Afr Amer 104 mL/min (>60); Globulin 3.7 g/dL (2.2-4.2); Glucose 104 mg/dL (74-106); Potassium 4.5 mmol/L (3.5-5.1); Protein, Total 7.7 g/dL (6.4-8.2); Sodium Level 139 mmol/L (136-145)
[2023-12-31 14:09] LABS: HEPATITIS B SURFACE AG Negative (Negative); Hep B Surface Antibodies Non Reactive (.); Hepatitis B Core Ab Total Positive (Negative); Hepatitis Be Ab Negative (Negative); Hepatitis Be Ag Negative (Negative); Hepatitis C Ab Non Reactive (Non Reactive)
== END | disposition home or self-care (01) ==
LOC: BIMLAB 11:05
PROVIDERS: PCP Internal Medicine; Visit Provider Internal Medicine
DX: K75.9 Inflammatory liver disease, unspecified (principal); R76.8 Other specified abnormal immunological findings in serum
CPT/HCPCS: 36415; 80053; 86704; 86705; 86706; 86707; 86803; 87340; 87350

== ENCOUNTER → 2024-04-09 | Outpatient (CLI) | payer MEDICARE, OTHER, SELFPAY ==
[2024-04-09 12:22] LABS: Cholesterol 145 mg/dL (200); High Density Lipoprotein 58 mg/dL; T4 Free Direct 0.77 ng/dL (0.76-1.46); Triglycerides 151 mg/dL; Very Low Density Lipoprotein 30 mg/dL (5-40)
== END | disposition home or self-care (01) ==
LOC: BIMLAB 10:25 → LAB 10:49
PROVIDERS: PCP Internal Medicine; Referring Provider Internal Medicine; Visit Provider Internal Medicine
DX: E78.5 Hyperlipidemia, unspecified (principal); E04.1 Nontoxic single thyroid nodule
CPT/HCPCS: 36415; 80061; 84439; 84443

== ENCOUNTER → 2024-04-15 | Outpatient (CLI) | payer MEDICARE, OTHER, SELFPAY ==
--- NOTE | 2024-04-15 09:12 | US_ITS ---
STUDY: THYROID ULTRASOUND REASON FOR EXAM: Female, 78 years old. Thyroid Nodule TECHNIQUE: Ultrasound evaluation of the thyroid was performed with real-time and static kam-scale imaging. COMPARISON: None. FINDINGS: RIGHT LOBE: The right lobe of the thyroid gland measures 4.7 x 1.1 x 1.4 cm. There is a homogeneous echotexture. Multiple tiny (less than 5 mm) adenomas or colloid cysts. LEFT LOBE: The left lobe of the thyroid gland measures 4.0 x 1.4 x 1.0 cm. There is a homogeneous echotexture. Nodule 1:14 x 10 x 10 mm solid hypoechoic wider than tall smoothly marginated nodule with peripheral calcification (TR 4) in the mid left lobe and follow-up ultrasound is recommended in one year. ISTHMUS: The isthmus measures 2 mm thick. . The regional lymph nodes are normal. US/Thyroid IMPRESSION: Multinodular thyroid gland with a dominant nodule with peripheral calcification left lobe and follow-up ultrasound is recommended in one year. Electronically Signed: Jorge L Looney MD at 10:45 EDT ,
== END | disposition home or self-care (01) ==
LOC: US 09:11
PROVIDERS: PCP Internal Medicine; Referring Provider Internal Medicine; Visit Provider Internal Medicine
DX: E04.1 Nontoxic single thyroid nodule (principal)
CPT/HCPCS: 76536

== ENCOUNTER 2024-07-08 20:42 | Emergency (ER) | payer MEDICARE, OTHER, SELFPAY ==
[2024-07-08 20:43] VITALS: BP 115/68; PULSE 89; RESP 19; TEMP 36.4; O2SAT 100
[2024-07-08 21:00] VITALS: BMI 24.6
--- NOTE | 2024-07-08 22:00 | ED.VIS.FALL ---
HPI HPI - Fall History of Present Illness Chief Complaint: Fall PFSH [facility] Medical History (Updated 07/09/24 @ 00:[address] Abdirizak Rivera, DO) Lumbar radiculopathy, right Thyroid nodule Positive hepatitis serology Preoperative evaluation to rule out surgical contraindication Ambulates with cane Rheumatoid arthritis Back pain Injury of head and neck History of pain when walking Osteopenia with high risk of fracture Flu vaccine need Pain of right lower extremity Right-sided chest wall pain Nocturia MRSA infection Hepatitis Former smoker History of stress test Fatigue Debility Balance problems Port-A-Cath in place Urinary frequency Dysuria Health care maintenance Osteoporosis Anxiety and depression History of echocardiogram Wears partial dentures Wears glasses Post-menopausal Cancer Rheumatoid arthritis High cholesterol History of hiatal hernia Gastric reflux Screening for breast cancer History of breast cancer Interstitial cystitis Neoplasm of unspecified behavior of bladder med port placement Rheumatoid arthritis pain Depression Hyperlipidemia Breast cancer Home Medications ?Medication ?Instructions ?Recorded ?Last Taken ?Type cholecalciferol (vitamin D3) 25 1,000 unit PO MOFR supplement 09/01/15 02/16/23 History mcg (1,000 unit) tablet (Vitamin D3) folic acid 1 mg tablet 1 mg PO DAILY@0800 supplement 09/01/15 02/16/23 History multivitamin with folic acid 400 1 tab PO DAILY supplement 09/01/15 02/16/23 History mcg tablet (Thera) methotrexate sodium 2.5 mg tablet 6 tab PO WE RA 01/21/17 02/12/23 History ascorbic acid (vitamin C) 1,000 mg 1 g PO DAILY SUPPLEMENT 03/21/21 02/16/23 History tablet desmopressin 0.2 mg tablet 0.1 mg PO QHS urination 04/30/22 02/15/23 History famotidine 20 mg tablet (Pepcid) 20 mg PO BID heartburn 02/19/23 Unknown History simvastatin 20 mg tablet 20 mg PO QHS for cholesterol #90 10/28/23 Unknown Rx TABLETS Handicap Placard #1 ea 02/08/24 Unknown Rx Cimcza .Route 04/09/24 Unknown History gabapentin 400 mg capsule 400 mg PO TID 2 months #180 caps 04/09/24 Unknown Rx duloxetine 30 mg capsule,delayed 30 mg PO BID #180 ea 04/19/24 Unknown Rx release oxycodone 5 mg capsule 5 mg PO Q6H PRN pain 4 days #16 07/09/24 Unknown Rx caps Allergy/AdvReac Type Severity Reaction Status Date / Time No Known Allergies Allergy Verified 07/08/24 20:44 Family History Father Diabetes Prostate CA Mother Arthritis Lupus Other Cancer Heart disease Parkinsons disease Surgical History History of back surgery History of hip surgery History of bladder surgery History of cystoscopy Hx of colonoscopy Hx of breast lump removal History of bladder surgery Social History household members: spouse current occupational status: retired Smoking Status: Former smoker alcohol intake: never substance use type: does not use EXAM Physical Exam Const Vital Signs: 07/08/24 20:43 07/08/24 20:57 Temperature 97.6 F L Temperature Source Oral Pulse Rate 89 Respiratory Rate 19 H Respiratory Effort Normal Respiratory Depth Shallow Respiratory Pattern Normal Blood Pressure 115/68 Blood Pressure Mean 83 Pulse Ox 100 Oxygen Delivery Method Room Air Room Air MDM MDM MDM Narrative Medical decision making narrative: HISTORY OF PRESENT ILLNESS: 78-year-old female presents with fall. Notes she hit her mid right back on a basket. Denies taking blood thinners. REVIEW OF SYSTEMS: Pertinent positives: Back pain, right rib pain Pertinent negatives: Shortness of breath, syncope PHYSICAL EXAM: Nursing triage notes reviewed, Vital signs reviewed Primary Survey Airway: Intact Breathing: Bilateral breath sounds Circulation: Palpable bilateral femorals, Palpable bilateral radial, Palpable bilateral DP and Palpable bilateral PT Disability / Spine precautions GCS Score: Eye Openin Verbal Response: 5 Motor Response: 6 Secondary Survey Constitutional: Please see MDM Head: Atraumatic, Midface stable, NO jaw malocclusion, No Cephalohematoma, and No Lacerations noted Eye: Pupils equal round and reactive to light, Extraocular muscles intact and No periorbital ecchymosis or stepoff, no evidence of entrapment ENT: Oropharynx clear, no lacerations, no hemotympanum, no raccoon eyes or brown sign Cervical spine / Neck: No cervical spine bony tenderness, crepitance, or stepoff deformity Trachea midline Lungs: Clear to auscultation, No asymmetric rise and No crepitus, no flail chest Cardiac: Regular rate and rhythm and No murmurs Abdomen: Soft, Nontender and No rebound Pelvis: Pelvis stable to compression : No evidence of genital injury Back: No midline bony tenderness to thoracic/lumbar/sacral spines Neuro: At baseline, intact strength and sensation in bilateral upper and lower extremities. 2+ patellar reflexes bilaterally. Extremities: NO gross Deformities Psych: Normal affect Nursing triage notes reviewed, Vital signs reviewed MEDICAL DECISION MAKING: Chief Complaint: Fall MDM Narrative: Patient was initially hemodynamically stable, afebrile and nontoxic-appearing. Exam with TTP over right rib margin. I considered the following differential diagnosis: Rib fracture, dislocation, contusion, pneumothorax, thoracic lumbar spine fracture I obtained skeet CT scan of the chest to further elucidate etiology the patient's complaints ALL IMAGES (IF OBTAINED) HAVE BEEN PERSONALLY REVIEWED AND INTERPRETED BY MYSELF. CT scan revealed right ninth and 10th rib fracture as well as a L3 spinous process fracture On reevaluation, tertiary exam revealed no new injuries. The patient was able to ambulate here in the emergency department on significant difficulty. She is encouraged to go home but having multiple rib fractures. In terms of multiple rib fracture did offer the patient an admission to a trauma center however she refused stating she like to go home instead. Prescribed oxycodone for breakthrough pain and an incentive spirometer as well. Strict return precautions were discussed. The patient and/or family, caregivers express understanding. The patient and/or family, caregivers agrees with the plan. Shared decision making: I will have a discussion with the patient and or visitors regarding risk/benefits of further testing or admission. They will be made aware of of the risk/benefits inherent in this decision they will be given the opportunity to voice understanding. Total critical care time today provided was at least 0 minutes. This excludes separately billable procedures. Critical care time (if documented) is secondary to the patient having high probability of clinically significant/life threatening deterioration in the patient's condition which required my urgent intervention. Impression: 1. Fall 2. Rib fracture 3. Spinous process fracture Dispo: Discharge home This note was generated with [employer] dictation software. It may contain incorrect words, spelling, and punctuation that were not noted in review of the chart prior to signing. Radiography Diagnostic Testing: Clinical Impression(s) from Imaging Studies Chest CT 07/08/24 22:07 IMPRESSION: 1. Acute fractures of the right posterior ninth and 10th ribs. No pneumothorax or hemothorax. 2. Nondisplaced fracture of the L3 spinous process. Electronically Signed: Chai Ortiz DO at 23:02 EST , Discharge Plan Triage Chief Complaint: Fall ED Provider: Abdirizak Rivera Dx/Rx/DC Orders Clinical Impression: Rib fracture, Closed fracture of spinous process of lumbar vertebra Instructions: ED Rib Fracture Prescriptions: New oxycodone 5 mg capsule 5 mg PO Q6H PRN (Reason: pain) 4 Days Qty: 16 0RF No Action desmopressin 0.2 mg tablet 0.1 mg PO QHS Cimcza .Route Rx Instructions: 400mg q month gabapentin 400 mg capsule 400 mg PO TID 60 Days Qty: 180 1RF folic acid 1 MG tablet 1 mg PO DAILY@0800 cholecalciferol (vitamin D3) [Vitamin D3] 1,000 UNIT tablet 1,000 unit PO MOFR multivitamin with folic acid [Thera] 1 TABLET tablet 1 tab PO DAILY methotrexate sodium 2.5 MG tablet 6 tab PO WE Rx Instructions: on wednesdays ascorbic acid (vitamin C) 1,000 mg Tablet 1 g PO DAILY famotidine [Pepcid] 20 mg tablet 20 mg PO BID simvastatin 20 mg tablet 20 mg PO QHS Qty: 90 3RF (DME) Handicap Placard See Rx Instructions .ROUTE .MEDSUPPLY Qty: 1 0RF Rx Instructions: As directed, length of time 3 years duloxetine 30 mg capsule,delayed release(DR/EC) 30 mg PO BID Qty: 180 2RF Primary Care Provider: Melissa Laura Referrals: Melissa Laura MD [Primary Care Provider] - Activity Restrictions/Additional Instructions: Thank you for trusting us with your care today! Your CT scan of the chest showed evidence of 9 and 10th rib fracture as well as a small fracture of one of the spinous processes of your vertebrae. This is a stable fracture of your back. Will not cause any neurologic deficits. Please use your incentive spirometer to encourage proper lung aeration to discourage the development of pneumonia. Please take Tylenol (2 pills, 650 mg), ibuprofen (2 pills, 400 mg) every 6 hours as needed for pain and fever control. Please take oxycodone for breakthrough pain. Please return to the emergency department if your symptoms change or worsen. Please follow with your primary care physician for further outpatient evaluation and management. Print Language: Kinyarwanda Disposition Disposition: Home, Self Care
--- NOTE | 2024-07-08 22:07 | CT_ITS ---
INDICATION: right rib pain after fall EXAMINATION: CT Chest W/O Contrast Injection TECHNIQUE: Helically acquired images were obtained of the chest with sagittal and coronal reconstructed images. Individualized dose optimization techniques were used for this CT. COMPARISON: 04/06/2021 CT. FINDINGS: Stable scarring in the left breast. LUNGS, PLEURA AND LARGE AIRWAYS: No consolidation or edema. Stable calcified granuloma in the right middle lobe. Stable right lower lobe pulmonary nodule. Given its stability of greater than 3 years, no follow-up is recommended. No pleural effusion. No pneumothorax. THYROID: Unremarkable. HEART AND PERICARDIUM: Coronary artery calcifications are present. No pericardial effusion. MEDIASTINUM AND JAMES: No mediastinal or hilar adenopathy. Esophagus is unremarkable. Stable moderate-sized hiatal hernia. VESSELS: No thoracic aortic aneurysm. UPPER ABDOMEN: Small calcified gallbladder stone with no evidence of cholecystitis. Splenic cyst. BONES: Acute fractures of the right posterior ninth and 10th ribs. Nondisplaced fracture of the spinous process of L3. CT/Chest without Contrast IMPRESSION: 1. Acute fractures of the right posterior ninth and 10th ribs. No pneumothorax or hemothorax. 2. Nondisplaced fracture of the L3 spinous process. Electronically Signed: Chai Ortiz DO at 23:02 EST ,
[2024-07-08] MEDS: Ibuprofen 200 MG Tablet 400 MG PO (22:19)
[2024-07-08] MEDS: Acetaminophen 500 MG Tablet 1000 MG PO (22:19)
[2024-07-08] MEDS: oxyCODONE 5 MG Tablet PO (22:19)
== END 2024-07-09 00:24 | disposition home or self-care (01) ==
PROVIDERS: Emergency Provider Emergency Medicine; PCP Internal Medicine; Visit Provider Emergency Medicine
DX: S22.41XA Multiple fractures of ribs, right side, initial encounter for closed fracture (principal); S32.039A Unspecified fracture of third lumbar vertebra, initial encounter for closed fracture; Z87.891 Personal history of nicotine dependence; W19.XXXA Unspecified fall, initial encounter
CPT/HCPCS: 71250; 99283

== ENCOUNTER 2024-07-13 11:24 | Emergency (ER) | payer MEDICARE, OTHER, SELFPAY ==
[2024-07-13 11:25] VITALS: BP 139/76; PULSE 76; RESP 18; TEMP 36.3; O2SAT 99
[2024-07-13 13:25] VITALS: BP 134/72; PULSE 88; RESP 18; O2SAT 97
[2024-07-13] MEDS: oxyCODONE 5 MG Tablet PO (13:39)
--- NOTE | 2024-07-13 13:45 | RAD_ITS ---
STUDY: X-RAY - UNILATERAL RIBS ( RIGHT ) WITH CHEST REASON FOR EXAM: Female, 78 years old. pain, pop with recent fx TECHNIQUE - RIBS: 2 view(s) of the ribs. TECHNIQUE - CHEST: Single PA view of the chest. COMPARISON: Chest x-ray dated August 26, 2023 FINDINGS - RIBS: Normal visualized ribs without a demonstrated fracture. No pneumothorax or consolidation or pleural effusion is present. FINDINGS - CHEST: Right central venous catheter terminates in the right atrium. There is hyperinflation of the lungs consistent with chronic obstructive lung disease (COPD). There is no demonstrated pleural abnormality. Normal size heart. Normal mediastinum and inna. Normal visualized pulmonary arteries. There is atherosclerotic calcification of the aortic arch with tortuosity. There are diffuse degenerative changes of the visualized thoracic spine. Normal visualized ribs, clavicles, and shoulders. There is no demonstrated abnormality of the visualized soft tissue structures of the upper abdomen. RAD/Ribs Uni Min 3V w/PA Chest IMPRESSION: RIBS: Normal x-ray examination of the ribs. CHEST: Degenerative changes, as described above. No demonstrated acute cardiopulmonary process. Electronically Signed: Nick Brown MD at 14:42 EST ,
--- NOTE | 2024-07-13 14:32 | EX.ED.DYSGE1 ---
HPI History of Present Illness Chief Complaint: Chest Other Informant: patient Narrative Narrative: Patient is a 78-year-old female who recently fell and sustaining right-sided rib fracture. (This was 5 days ago). She is evaluated in the ER at this time and had a CT scan. She states she also recently contracted which she seems to be COVID from her . She has had cough and hoarse voice. She notes her had a positive COVID test so she assumes that is what she has as well. This morning she coughed and felt a popping sensation over her right lower ribs. She has had increased pain since. She states the pain is worse with movement and deep breathing. She denies any fever. She has had her cough symptoms since Friday (6 days ago). She is been alternating ibuprofen and Tylenol for her pain. She notes she does have oxycodone but does not like to take it when she absolutely needs to. No other complaints or concerns reported at this time. CT result from 06/30/2024 shows acute fracture of the right posterior ninth and 10th ribs with no pneumothorax or hemothorax. There is also a nondisplaced fracture of the L3 spinous process. [facility] Medical History Lumbar radiculopathy, right Thyroid nodule Positive hepatitis serology Preoperative evaluation to rule out surgical contraindication Ambulates with cane Rheumatoid arthritis Back pain Injury of head and neck History of pain when walking Osteopenia with high risk of fracture Flu vaccine need Pain of right lower extremity Right-sided chest wall pain Nocturia MRSA infection Hepatitis Former smoker History of stress test Fatigue Debility Balance problems Port-A-Cath in place Urinary frequency Dysuria Health care maintenance Osteoporosis Anxiety and depression History of echocardiogram Wears partial dentures Wears glasses Post-menopausal Cancer Rheumatoid arthritis High cholesterol History of hiatal hernia Gastric reflux Screening for breast cancer History of breast cancer Interstitial cystitis Neoplasm of unspecified behavior of bladder med port placement Rheumatoid arthritis pain Depression Hyperlipidemia Breast cancer Home Medications ?Medication ?Instructions ?Recorded ?Last Taken ?Type cholecalciferol (vitamin D3) 25 1,000 unit PO MOFR supplement 09/01/15 02/16/23 History mcg (1,000 unit) tablet (Vitamin D3) folic acid 1 mg tablet 1 mg PO DAILY@0800 supplement 09/01/15 02/16/23 History multivitamin with folic acid 400 1 tab PO DAILY supplement 09/01/15 02/16/23 History mcg tablet (Thera) methotrexate sodium 2.5 mg tablet 6 tab PO WE RA 01/21/17 02/12/23 History ascorbic acid (vitamin C) 1,000 mg 1 g PO DAILY SUPPLEMENT 03/21/21 02/16/23 History tablet desmopressin 0.2 mg tablet 0.1 mg PO QHS urination 04/30/22 02/15/23 History famotidine 20 mg tablet (Pepcid) 20 mg PO BID heartburn 02/19/23 Unknown History simvastatin 20 mg tablet 20 mg PO QHS for cholesterol #90 10/28/23 Unknown Rx TABLETS Handicap Placard #1 ea 02/08/24 Unknown Rx Cimcza .Route 04/09/24 Unknown History gabapentin 400 mg capsule 400 mg PO TID 2 months #180 caps 04/09/24 Unknown Rx duloxetine 30 mg capsule,delayed 30 mg PO BID #180 ea 04/19/24 Unknown Rx release oxycodone 5 mg capsule 5 mg PO Q6H PRN pain 4 days #16 07/09/24 Unknown Rx caps benzonatate 200 mg capsule 200 mg PO TID PRN cough #20 caps 07/13/24 Unknown Rx guaifenesin 600 mg tablet, 600 mg PO Q12H PRN cough #20 tabs 07/13/24 Unknown Rx extended release 12 hr (Mucinex) Allergy/AdvReac Type Severity Reaction Status Date / Time No Known Allergies Allergy Verified 07/13/24 11:29 Family History Father Diabetes Prostate CA Mother Arthritis Lupus Other Cancer Heart disease Parkinsons disease Surgical History History of back surgery History of hip surgery History of bladder surgery History of cystoscopy Hx of colonoscopy Hx of breast lump removal History of bladder surgery Social History household members: spouse current occupational status: retired Smoking Status: Former smoker alcohol intake: never substance use type: does not use ROS ROS ED Constitutional Constitutional ED: Denies chills or fever(s) ENT ENT ED: Reports sore throat Cardiovascular Cardiovascular: Reports chest pain; Denies palpitations Respiratory/Chest Respiratory/Chest: Reports cough; Denies dyspnea Gastrointestinal Gastrointestinal: Denies nausea or vomiting Musculoskeletal Musculoskeletal: Denies back pain or myalgias Integumentary Denies rash Neurologic Neurologic: Denies weakness EXAM Physical Exam Const Vital Signs: 07/13/24 11:25 07/13/24 13:25 07/13/24 15:10 Temperature 97.4 F L 98.1 F Temperature Source Temporal Pulse Rate 76 88 64 Respiratory Rate 18 18 18 Blood Pressure 139/76 H 134/72 H 136/76 H Blood Pressure Mean 97 92 96 Pulse Ox 99 97 97 Oxygen Delivery Method Room Air Room Air Positive well nourished and well developed General Appearance ED: well developed and NAD HEENT Reports moist mucous membranes HEENT Narrative: Mildly hoarse voice Eyes PERRL Neck supple Chest Wall Chest Narrative: Bruising noted to the right lower posterior ribs. TTP right lower ribs posterior and midaxillary line Resp normal respiratory effort Auscultation: Negative for rales, rhonchi, wheezes or diminished lung sounds GI normal to inspection, nondistended, normoactive bowel sounds, non-tender and non-distended Extremity normal to inspection General Extremety ED: Negative for edema or tenderness General Extremity: Negative for edema Neuro oriented x3 Sensorium / Orientation: alert Motor Exam: Negative for general weakness Psych mental status grossly normal Skin no rashes or lesions noted and no wounds MDM MDM MDM Narrative Medical decision making narrative: Patient is evaluated for worsening right sided rib pain. She recently was diagnosed with the eighth and 10th rib fractures and today she coughed and felt a pop and had increased pain. Has really only been taking ibuprofen and Tylenol for pain. Upon arrival patient appears mildly uncomfortable but no acute distress. She 9 9% on room air. She is not have increased work of breathing. Differential includes rib pain from recent fracture, pneumothorax, pleural effusion, pulmonary contusion. Patient offered IV, IM or oral pain medication. She states that she would just like oral medicine. She is given a dose of oxycodone. Rib x-ray does not show any acute process. This is reviewed by myself as well as radiology. I do not appreciate any large fracture segment, pneumothorax or effusion. In addition patient is coughing and I suspect she has COVID given her 's recent diagnosis and her symptoms which is exacerbating her rib pain. She is given a dose of Mucinex and a Tessalon Perle in the ER for her symptoms. On repeat evaluation patient states she is feeling improved. Will be discharged home. Given return precautions. Will be given a prescription for Tessalon Perles and Mucinex. States that she has plenty of pain medicine at home. Patient verbalized agreement understand this plan. Discharged home in stable condition. Radiography Diagnostic Testing: Clinical Impression(s) from Imaging Studies Ribs w/Chest X-Ray 07/13/24 13:45 IMPRESSION: RIBS: Normal x-ray examination of the ribs. CHEST: Degenerative changes, as described above. No demonstrated acute cardiopulmonary process. Electronically Signed: Nick Brown MD at 14:42 EST , Discharge Plan Triage Chief Complaint: Chest Other ED Provider: Rika Pavon Dx/Rx/DC Orders Clinical Impression: Acute chest wall pain, Multiple fractures of ribs, right side, subsequent encounter for fracture with routine healing, Cough Instructions: ED Rib Fracture Prescriptions: New benzonatate 200 mg capsule 200 mg PO TID PRN (Reason: cough) Qty: 20 0RF guaifenesin [Mucinex] 600 mg tablet extended release 12hr 600 mg PO Q12H PRN (Reason: cough) Qty: 20 0RF No Action desmopressin 0.2 mg tablet 0.1 mg PO QHS Cimcza .Route Rx Instructions: 400mg q month gabapentin 400 mg capsule 400 mg PO TID 60 Days Qty: 180 1RF folic acid 1 MG tablet 1 mg PO DAILY@0800 cholecalciferol (vitamin D3) [Vitamin D3] 1,000 UNIT tablet 1,000 unit PO MOFR multivitamin with folic acid [Thera] 1 TABLET tablet 1 tab PO DAILY methotrexate sodium 2.5 MG tablet 6 tab PO WE Rx Instructions: on wednesdays ascorbic acid (vitamin C) 1,000 mg Tablet 1 g PO DAILY famotidine [Pepcid] 20 mg tablet 20 mg PO BID oxycodone 5 mg capsule 5 mg PO Q6H PRN (Reason: pain) 4 Days Qty: 16 0RF simvastatin 20 mg tablet 20 mg PO QHS Qty: 90 3RF (DME) Handicap Placard See Rx Instructions .ROUTE .MEDSUPPLY Qty: 1 0RF Rx Instructions: As directed, length of time 3 years duloxetine 30 mg capsule,delayed release(DR/EC) 30 mg PO BID Qty: 180 2RF Primary Care Provider: Melissa Laura Referrals: Melissa Laura MD [Primary Care Provider] - Activity Restrictions/Additional Instructions: Your chest x-ray is stable with no acute abnormalities. I suspect you do have COVID based on your symptoms and your exposure. You are outside any treatment window. You been prescribed cough medicine and Mucinex to help thin the secretions in your lungs for when you do cough. Continue to use your incentive spirometer. If you develop a fever or worsening respiratory symptoms please return the emergency room. Print Language: Senegalese Disposition Disposition: Home, Self Care
[2024-07-13] MEDS: Benzonatate 100 MG Capsule 200 MG PO (14:48)
[2024-07-13] MEDS: guaiFENesin 600 MG Tablet PO (14:49)
[2024-07-13 15:10] VITALS: BP 136/76; PULSE 64; RESP 18; TEMP 36.7; O2SAT 97
--- NOTE | 2024-07-13 15:33 | ED.RN ---
wheelchair at dc
== END 2024-07-13 15:33 | disposition home or self-care (01) ==
PROVIDERS: Emergency Provider Emergency Medicine; PCP Internal Medicine; Visit Provider Emergency Medicine
DX: R07.89 Other chest pain (principal); R05.9 Cough, unspecified; S22.41XA Multiple fractures of ribs, right side, initial encounter for closed fracture; W19.XXXA Unspecified fall, initial encounter; Z20.828 Contact with and (suspected) exposure to other viral communicable diseases; Z87.891 Personal history of nicotine dependence
CPT/HCPCS: 71101; 99282

== ENCOUNTER → 2024-07-26 | Outpatient (CLI) | payer MEDICARE, OTHER, SELFPAY ==
--- NOTE | 2024-07-26 09:53 | BI_ITS ---
MAMMOGRAPHY - BILATERAL SCREENING REASON FOR EXAM: Female, 78 years old. Routine annual screening examination. PERTINENT HISTORY: Personal history of breast cancer. Prior left lumpectomy with chemotherapy and radiation therapy. TECHNIQUE: Digital bilateral breast almita (3D mammographic acquisition) in the CC and MLO projections. 2-D mediolateral oblique (MLO) and craniocaudad (CC) views of both breasts were obtained. CAD: Full Field Digital Mammography with Computer Added Detection was performed. COMPARISON: Comparison is made with prior study dated July 24, 2023 and July 23, 2022. FINDINGS: Breast Composition: The breasts are heterogeneously dense, which may obscure small masses. There are no dominant masses or suspicious calcifications. The patient is status post lumpectomy in the deep central lateral aspect of the left breast with resultant postoperative scarring and breast deformity. A tissue clip marker is seen along the anterior upper lateral aspect of the right breast. No other significant abnormalities are identified. There has been no significant change since the prior study. BI/SCRN MAMM (CAD)W/ALMITA BILAT IMPRESSION: Stable bilateral screening mammogram. Yearly follow-up mammogram recommended. (A) ASSESSMENT CATEGORY: BIRADS Category 2: Benign. A letter regarding these results will be sent to the patient by the facility within 30 days. Approximately 10% of breast cancers are not detected by mammography. A normal mammogram should not delay biopsy of a clinically suspicious abnormality. [id number] Electronically Signed: Ramiro Gilman MD at 10:37 EST ,
== END | disposition home or self-care (01) ==
LOC: OPBI 09:51
PROVIDERS: PCP Internal Medicine; Referring Provider Internal Medicine Medical Oncology; Visit Provider Internal Medicine Medical Oncology
DX: Z12.31 Encounter for screening mammogram for malignant neoplasm of breast (principal)
CPT/HCPCS: 77063; 77067

== ENCOUNTER → 2024-12-16 | Outpatient (CLI) | payer MEDICARE, OTHER, SELFPAY ==
--- NOTE | 2024-12-16 15:35 | RAD_ITS ---
PROCEDURE: CHEST PA AND LATERAL 12/16/2024 REASON FOR EXAM: COUGH, CHEST CONGESTION TECHNIQUE: Frontal and lateral views of the chest. COMPARISON: 07/13/2024 FINDINGS: Hardware: Stable right-sided port catheter. Heart: Heart size is mildly enlarged. Mediastinum: There are atherosclerotic calcifications of the thoracic aorta. Lungs: No focal consolidation. No pneumothorax. No pleural effusion. Bones: Degenerative changes are identified within the thoracic spine. Multiple healing right rib fractures. RAD/Chest PA and Lateral IMPRESSION: NO ACUTE FINDINGS. [facility]
[2024-12-16 16:49] LABS: Absolute Lymphocyte Count 2.53 X10^3/uL (0.83-4.51); Absolute Neutrophil Count 2.6 X10^3/uL (2.0-7.7); Basophil# 0.03 X10^3/uL; Basophil% 0.5 % (0-1); Eosinophil# 0.18 X10^3/uL; Hemoglobin 11.9 g/dL (12.0-15.0); Lymphocyte # 2.53 X10^3/ul (0.83-4.51); Lymphocyte % 42.6 % (19-41); Mean Corp Hgb Conc 33.1 g/dL (32-36); Mean Corpuscular Hgb 30.9 pg (27.0-32.0); Mean Corpuscular Volume 93.5 fL (81-99); Mean Platelet Vol. 9.7 fl (6.2-12.0); Monocyte# 0.55 X10^3/uL; Monocyte% 9.3 % (0-10); NRBC Flagged by Analyzer 0 % (0-5); Neutrophil # 2.63 X10^3/uL (2.7-7.7); Neutrophil % 44.3 % (47-70); Platelet Count 221 K/mm3 (150-450); RBC Distribution Width SD 47.1 fl (35.1-43.9); Red Blood Count 3.85 M/mm3 (4.2-5.4); White Blood Count 5.9 K/mm3 (4.4-11.0)
[2024-12-16 17:33] LABS: ALB/GLOB Ratio 1.2 RATIO (0.9-2.4); AST(SGOT) 25 U/L (<=31); Alanine Aminotransfer ALT/SGPT 17 U/L (<=34); Albumin, Serum 4.1 g/dL (3.4-4.8); Alkaline Phosphatase 62 U/L (35-104); Anion Gap 12 (5-15); BUN 26 mg/dL (4-19); BUN/Creat Ratio 42.6 RATIO (10-20); Calcium,Total 10.1 mg/dL (7.6-11.0); Carbon Dioxide 22.5 mmol/L (21.0-32.0); Chloride 102 mmol/L (98-108); Creatinine, Serum 0.61 mg/dL (0.70-1.20); EST Glomerular Filtration Rate 92 (>60); Globulin 3.5 g/dL (2.2-4.2); Glucose 103 mg/dL (70-99); Potassium 4.1 mmol/L (3.3-5.1); Protein, Total 7.6 g/dL (5.9-8.4); Sodium Level 137 mmol/L (133-145); Total Bilirubin 0.27 mg/dL (0.00-1.30)
== END | disposition home or self-care (01) ==
PROVIDERS: PCP Internal Medicine; Referring Provider Internal Medicine; Visit Provider Internal Medicine
DX: E78.2 Mixed hyperlipidemia (principal); R05.9 Cough, unspecified; R09.89 Other specified symptoms and signs involving the circulatory and respiratory systems
CPT/HCPCS: 36415; 71046; 80053; 85025

== ENCOUNTER → 2025-03-10 | Outpatient (CLI) | payer MEDICARE, OTHER, SELFPAY | END | disposition home or self-care (01) | PROVIDERS: PCP Internal Medicine; Visit Provider Podiatrist | DX: L03.032 Cellulitis of left toe (principal) | CPT/HCPCS: 87070; 87075; 87077; 87186; 87205 ==

== ENCOUNTER → 2025-03-15 | Outpatient (CLI) | payer MEDICARE, OTHER, SELFPAY ==
[2025-03-15 09:29] LABS: Hematocrit 38.8 % (37-47); Hemoglobin 12.7 g/dL (12.0-15.0); Immature Granulocytes Count 0.030 X10^3/uL (0.0-0.0); Mean Corp Hgb Conc 32.7 g/dL (32-36); Mean Corpuscular Volume 94.9 fL (81-99); Mean Platelet Vol. 9.4 fl (6.2-12.0); NRBC Flagged by Analyzer 0 % (0-5); POSITIVE MORPHOLOGY YES; Platelet Count 248 K/mm3 (150-450); RBC Distribution Width CV 14.4 % (11.6-14.6); RBC Distribution Width SD 49.2 fl (35.1-43.9); Red Blood Count 4.09 M/mm3 (4.2-5.4); White Blood Count 8.8 K/mm3 (4.4-11.0)
[2025-03-15 09:32] LABS: Differential Indicated SCAN CRITERIA MET
[2025-03-15 10:04] LABS: Reactive Lymphocyte 1+
[2025-03-15 10:11] LABS: AST(SGOT) 21 U/L (<=31); Alanine Aminotransfer ALT/SGPT 14 U/L (<=34); Albumin, Serum 4.3 g/dL (3.4-4.8); Alkaline Phosphatase 68 U/L (35-104); Anion Gap 10 (5-15); BUN 28 mg/dL (4-19); BUN/Creat Ratio 47.1 RATIO (10-20); Calcium,Total 9.6 mg/dL (7.6-11.0); Carbon Dioxide 23.9 mmol/L (21.0-32.0); Chloride 102 mmol/L (98-108); Globulin 3.0 g/dL (2.2-4.2); Glucose 107 mg/dL (70-99); Potassium 5.1 mmol/L (3.3-5.1)
== END | disposition home or self-care (01) ==
PROVIDERS: PCP Internal Medicine; Referring Provider Podiatrist; Visit Provider Podiatrist
DX: L03.116 Cellulitis of left lower limb (principal)
CPT/HCPCS: 36415; 80053; 85025

== ENCOUNTER → 2025-03-16 | Outpatient (CLI) | payer MEDICARE, OTHER, SELFPAY ==
--- NOTE | 2025-03-16 12:25 | US_ITS ---
PROCEDURE: THYROID 03/16/2025 REASON FOR EXAM: FU THYROID NODULE TECHNIQUE: Imaging of the thyroid gland was performed. COMPARISON: Prior study dated April 15, 2024. FINDINGS: Right thyroid lobe size: 4.6 cm x 1.3 cm 1.4 cm Left thyroid lobe size: 4.8 cm 1.2 cm 1 cm Isthmus: 0.2 cm Background parenchymal echotexture is homogeneous. Nodules: . Lobe: Left, Location: Upper pole, Size: 1.5 cm x 1 cm x 1.2 cm, Stability: Stable Composition: Solid or almost completely solid (+2) Echogenicity: Hypoechoic (+2) Margin: Smooth (+0) Shape: Wider than tall (+0) Echogenic Foci: Peripheral calcification (+2) TI-RADS: 4 . Lobe: Right, Location: Upper pole, Size: 0.5 cm x 0.4 cm x 0.2 cm, Stability: Stable Composition: Mixed cystic and solid (+1) Echogenicity: Hypoechoic (+2) Margin: Smooth (+0) Shape: Wider than tall (+0) Echogenic Foci: None (+0) TI-RADS: 3 US/Thyroid IMPRESSION: Stable examination. RECOMMENDATION: Based on most suspicious nodule. Nodule size = largest diameter Only evaluate nodule if =>5 mm. Growth > 20% in 2 dimensions = worsening. Follow up to 4 nodules. Recommend biopsy for no more than 2 nodules. Reading Location: [facility]
== END | disposition home or self-care (01) ==
LOC: US 12:20
PROVIDERS: PCP Internal Medicine; Referring Provider Internal Medicine; Visit Provider Internal Medicine
DX: E04.1 Nontoxic single thyroid nodule (principal)
CPT/HCPCS: 76536

== ENCOUNTER 2025-04-15 05:55 | Day surgery (SDC) | payer MEDICARE, OTHER, SELFPAY ==
--- NOTE | 2025-04-12 12:08 | EKG12_ITS ---
Test Reason : PREOP Blood Pressure : */* mmHG Vent. Rate : 70 BPM Atrial Rate : 70 BPM P-R Int : 134 ms QRS Dur : 70 ms QT Int : 390 ms P-R-T Axes : 0 -12 15 degrees QTcB Int : 421 ms Normal sinus rhythm Normal ECG When compared with ECG of 16-Feb-2023 14:56, Sinus rhythm has replaced Junctional rhythm Confirmed by Maurizio Crawford ([id number]), scientific editor [facility] ([id number]) on 04/13/2025 6:34:17 AM Referred By: Chai Mercer Confirmed By: Maurizio Crawford
--- NOTE | 2025-04-13 09:00 | PAT.ANE_ITS ---
Pre-Assessment Diagnosis/Proposed Procedure Planned Operative Procedure(s): RESECTION OF BONE FROM THE LEFT FIRST AND SECOND DIGIT,ARTHROPLASTY OF THE LEFT SECOND DIGIT AND ADALI OSTEOTOMY OF THE LEFT FIRST DIGIT Anesthesia History Anesthesia History - front end developer javascript html css: Anesthesia History - front end developer javascript html css Hx Hospitalization No 04/08/25 09:21 Any Problems With Anesthesia No 04/08/25 09:21 Cholinesterase deficiency No 04/08/25 09:21 You/Your Family Experience No 04/08/25 09:21 fever (hyperthermia) with Relationship Recent Exposure to Contagious No 08/26/23 06:48 Disease Does patient have nerve No 04/08/25 09:21 stimulator Patient instructed to have device shut off --Does patient have Pacemaker or ICD? When Was Last Pacemaker Check QUESTION #4 FULL TEXT: You/Your Family Experience fever (hyperthermia) with Anesthesia Last Oral Intake Last Oral intake: Last Oral Intake NPO since Meds taken in AM with sips of water? Meds patient instructed to take am of surgery PONV PONV - front end developer javascript html css: PONV - front end developer javascript html css Female Yes 04/08/25 09:21 HX of Motion Sickness No 04/08/25 09:21 HX of N/V After Surgery No 04/08/25 09:21 Non-Smoker Yes 04/08/25 09:21 Duration of Surgery greater Yes 04/08/25 09:21 than 60 minutes Number of Risk Factors 3 04/08/25 09:21 PONV Score Moderate Risk 04/08/25 09:21 Height & Weight Height & Weight: Anesthesia: Height & Weight Height 5 ft 1 in 12/16/24 14:27 Respiratory Assessment Respiratory Assessment - front end developer javascript html css: Respiratory Tract Infection Hx - front end developer javascript html css Hx Respiratory Tract Infection No 04/08/25 09:21 STOP Sleep Apnea STOP Sleep Apnea - front end developer javascript html css: STOP Sleep Apnea - front end developer javascript html css Hx Hypertension No 04/08/25 09:21 Hx Sleep Apnea No 04/08/25 09:21 CPAP No 04/08/25 09:21 BIPAP No 04/08/25 09:21 Do you snore loudly (louder No 04/08/25 09:21 than talking or can be heard Do you often feel tired/ Yes 04/08/25 09:21 fatigued/ sleepy during daytime? Has anyone observed you stop No 04/08/25 09:21 breathing during sleep? STOP Results Negative 04/08/25 09:21 QUESTION #5 FULL TEXT : Do you snore loudly (louder than talking or can be heard through closed doors)? Tobacco Use History Tobacco Use History - front end developer javascript html css: Tobacco Use History - front end developer javascript html css Tobacco Use Non-smoker 03/22/21 02:56 Smoking Status Former smoker 04/08/25 09:21 Hx Tobacco Use No 04/08/25 09:21 Years Smoking Packs Smoked per Day Smoking Cessation Date was No - quit smoking greater 04/08/25 09:21 within the last 15 years than 15 years ago Hx Smoking Cessation Date 12/30/79 04/08/25 09:21 Hx Smoking Cessation No 04/08/25 09:21 Counseling Hematologic Medial History Hematologic Hx - front end developer javascript html css: Hematologic 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 Specify any problems Hx of Preganancy in last 3 No 04/08/25 09:21 Months Nurse Filling Out Transfusion DSCHRIBER 04/08/25 09:21 & Questions: Date: 04/08/25 04/08/25 09:21 Time: 09:22 04/08/25 09:21 Patient unable to answer at this time (ie. confused, unrespo /Reproduction History /Reproductive History - front end developer javascript html css: /Reproductive Hx- front end developer javascript html css Hx Now No 04/08/25 09:21 Gestational Age (in weeks): EDC: Hx Hx Para Hx Section SAB No 04/08/25 09:21 PFSH Medical History History of hiatal hernia Chest congestion Lumbar radiculopathy, right Thyroid nodule Positive hepatitis serology Preoperative evaluation to rule out surgical contraindication Ambulates with cane Rheumatoid arthritis Back pain Injury of head and neck History of pain when walking Osteopenia with high risk of fracture Flu vaccine need Pain of right lower extremity Right-sided chest wall pain Nocturia MRSA infection Hepatitis Former smoker History of stress test Fatigue Debility Balance problems Port-A-Cath in place Urinary frequency Dysuria Health care maintenance Osteoporosis Anxiety and depression History of echocardiogram Wears partial dentures Wears glasses Post-menopausal Cancer Rheumatoid arthritis High cholesterol History of hiatal hernia Gastric reflux Screening for breast cancer History of breast cancer Interstitial cystitis Neoplasm of unspecified behavior of bladder med port placement Rheumatoid arthritis pain Depression Hyperlipidemia Breast cancer Home Medications ?Medication ?Instructions ?Recorded ?Last Taken ?Type cholecalciferol (vitamin D3) 25 1,000 unit PO MOFR sup plement 09/01/15 02/16/23 History mcg (1,000 unit) tablet (Vitamin D3) folic acid 1 mg tablet 1 mg PO DAILY@0800 supplemen t 09/01/15 02/16/23 History multivitamin with folic acid 400 1 tab PO DAILY supple ment 09/01/15 02/16/23 History mcg tablet (Thera) methotrexate sodium 2.5 mg tablet 6 tab PO WE RA 01/2102/12/23 History ascorbic acid (vitamin C) 1,000 mg 1 g PO DAILY SUPPLE MENT 03/21/21 02/16/23 History tablet desmopressin 0.2 mg tablet 0.1 mg PO QHS urination 02/15/23 History famotidine 20 mg tablet (Pepcid) 20 mg PO DAILY heartb urn 02/19/23 Unknown History Handicap Placard #1 ea 02/08/24 Unknown Rx Cimcza 400 mg .Route QMONTH 4 Unknown History alendronate 70 mg tablet 70 mg PO QWEEK BONES #10 tab s 10/06/24 Unknown Rx simvastatin 20 mg tablet 20 mg PO QHS for cholesterol #90 10/28/24 Unknown Rx TABLETS duloxetine 30 mg capsule,delayed 30 mg PO BID #180 ea 01/06/25 Unknown Rx release Allergy/AdvReac Type Severity Reaction Status Date / Time No Known Allergies Allergy Verified 04/08/25 09:17 Family History Father Diabetes Prostate CA Mother Arthritis Lupus Other Cancer Heart disease Parkinsons disease Surgical History History of vascular access device History of back surgery History of hip surgery History of bladder surgery History of cystoscopy Hx of colonoscopy Hx of breast lump removal History of bladder surgery Social History household members: spouse current occupational status: retired Smoking Status: Former smoker alcohol intake: never substance use type: does not use Audit: Pertinent Findings Pertinent Findings EKG Perinent findings: Normal sinus rhythm Normal ECG When compared with ECG of 16-Feb-2023 14:56, Sinus rhythm has replaced Junctional rhythm Confirmed by Maurizio Crawford ([id number]), editor greeting card [facility] ([id number]) on 04/13/2025 6:34:17 AM Echo (EF%) pertinent findings: 03/2021: EF 60%, no evidence of diastolic dysfxn Recommendation Anesthesia Recommendation Anesthesia recommendation: OPTIMIZED for anesthesia
[2025-04-15] VITALS (9 sets, daily range): BP systolic 97–146; BP diastolic 59–79; PULSE 67–88; RESP 16; TEMP 36.1–37; O2SAT 96–98; BMI 24.1
[2025-04-15] MEDS: Lactated Ringers 1,000 ML 15 ML IV (06:40)
--- NOTE | 2025-04-15 07:15 | RAD_ITS ---
PROCEDURE: FOOT 2 VIEWS 04/15/2025 REASON FOR EXAM: RESECTION OF BONE FROM LEFT FIRST AND SECOND DIGIT, ARTHROPLASTY TECHNIQUE: Procedure Code: RADFO2 Modality: DX Procedure: FOOT 2 VIEWS Laterality: Left FINDINGS: 3 fluoroscopic images. Fluoroscopy time was 17 seconds. Cumulative dose was 0.1037 mGy. RAD/Foot 2 Views IMPRESSION: Administrative dictation for intraoperative fluoroscopy. Please see the operat carmen report for details. Reading Location: [facility]
--- NOTE | 2025-04-15 07:26 | PRE.ANES_ITS ---
ASA Classification* ASA Classification ASA Classification: 3 Assessment & Plan Anesthesia* Anesthesia Assessment Anesthesia Assessment: Discussed sedation and/or anesthesia options, risks, benefits, and alternatives with patient/parents/legal guardian/POA. Questions invited. The patient/parents/legal guardian/POA seems to understand and agrees to proceed with anesthesia plan. Reviewed the physical assessment, medical history, allergy history and patient home medications list prior to surgery/procedure/anesthetic and documented any changes. Performed airway and anesthesia risk assessments. Anesthesia Type Anesthesia Type: MAC (Backup) Anesthesia Focused Assessment* Temperature: 97.2 F Pulse Rate: 80 Blood Pressure: 131/74 Respiratory Rate: 16 Pulse Ox: 97 Airway Assessment Mouth opens: >3 cm Mallampati Score: II Labs Anesthesia Preop lab: CBC WBC 8.8 K/mm3 (4.4-11.0) 03/15/25 09:16 03/15/25 RBC 4.09 M/mm3 (4.2-5.4) L 03/15/25 09:16 03/15/25 Hgb 12.7 g/dL (12.0-15.0) 03/15/25 09:16 03/15/25 Hct 38.8 % (37-47) 03/15/25 09:16 03/15/25 Plt Count 248 K/mm3 (150-450) 03/15/25 09:16 03/15/25 CHEMISTRY Potassium 5.1 mmol/L (3.3-5.1) 03/15/25 09:16 03/15/25 Sodium 136 mmol/L (133-145) 03/15/25 09:16 03/15/25 Magnesium 2.0 mg/dL (1.6-2.6) 03/04/23 05:37 03/04/23 Phosphorus 3.6 mg/dL (2.5-4.9) 02/20/23 05:36 02/20/23 BUN 28 mg/dL (4-19) H 03/15/25 09:16 03/15/25 Creatinine 0.60 mg/dL (0.70-1.20) L 03/15/25 09:16 Glucose 107 mg/dL (70-99) H 03/15/25 09:16 03/15/25 TSH 1.750 uIU/mL (0.358-3.740) 04/09/24 10:26 08/ 0 COAG PT 13.5 SECONDS (11.7-14.9) 02/16/23 15:15 Pre-Assessment Diagnosis/Proposed Procedure Planned Operative Procedure(s): RESECTION OF BONE FROM THE LEFT FIRST AND SECOND DIGIT,ARTHROPLASTY OF THE LEFT SECOND DIGIT AND ADALI OSTEOTOMY OF THE LEFT FIRST DIGIT Anesthesia History Anesthesia History - accounts supervisor: Anesthesia History - accounts supervisor Hx Hospitalization No 04/08/25 09:21 Any Problems With Anesthesia No 04/08/25 09:21 Cholinesterase deficiency No 04/08/25 09:21 You/Your Family Experience No 04/08/25 09:21 fever (hyperthermia) with Relationship Recent Exposure to Contagious No 04/15/25 06:31 Disease Does patient have nerve No 04/08/25 09:21 stimulator Patient instructed to have device shut off --Does patient have Pacemaker No 04/15/25 06:31 or ICD? When Was Last Pacemaker Check QUESTION #4 FULL TEXT: You/Your Family Experience fever (hyperthermia) with Anesthesia Last Oral Intake Last Oral intake: Last Oral Intake NPO since 19:00 04/15/25 06:31 Meds taken in AM with sips of Yes 04/15/25 06:31 water? Meds patient instructed to take am of surgery PONV PONV - accounts supervisor: PONV - accounts supervisor Female Yes 04/08/25 09:21 HX of Motion Sickness No 04/08/25 09:21 HX of N/V After Surgery No 04/08/25 09:21 Non-Smoker Yes 04/08/25 09:21 Duration of Surgery greater Yes 04/08/25 09:21 than 60 minutes Number of Risk Factors 3 04/08/25 09:21 PONV Score Moderate Risk 04/08/25 09:21 Height & Weight Height & Weight: Anesthesia: Height & Weight Height 5 ft 1 in 04/15/25 06:31 Weight: 58 kg 04/15/25 06:31 Body Mass Index (BMI) 24.1 04/15/25 06:31 Respiratory Assessment Respiratory Assessment - accounts supervisor: Respiratory Tract Infection Hx - accounts supervisor Hx Respiratory Tract Infection No 04/08/25 09:21 STOP Sleep Apnea STOP Sleep Apnea - accounts supervisor: STOP Sleep Apnea - accounts supervisor Hx Hypertension No 04/08/25 09:21 Hx Sleep Apnea No 04/08/25 09:21 CPAP No 04/08/25 09:21 BIPAP No 04/08/25 09:21 Do you snore loudly (louder No 04/08/25 09:21 than talking or can be heard Do you often feel tired/ Yes 04/08/25 09:21 fatigued/ sleepy during daytime? Has anyone observed you stop No 04/08/25 09:21 breathing during sleep? STOP Results Negative 04/08/25 09:21 QUESTION #5 FULL TEXT : Do you snore loudly (louder than talking or can be heard through closed doors)? Tobacco Use History Tobacco Use History - accounts supervisor: Tobacco Use History - accounts supervisor Tobacco Use Non-smoker 03/22/21 02:56 Smoking Status Former smoker 04/08/25 09:21 Hx Tobacco Use No 04/08/25 09:21 Years Smoking Packs Smoked per Day Smoking Cessation Date was No - quit smoking greater 04/08/25 09:21 within the last 15 years than 15 years ago Hx Smoking Cessation Date 12/30/79 04/08/25 09:21 Hx Smoking Cessation No 04/08/25 09:21 Counseling Hematologic Medial History Hematologic Hx - accounts supervisor: Hematologic Medical Hx - learning program manager Hx of Blood Transfusion No 04/08/25 09:21 Hx of Transfusion in last 3 No 04/08/25 09:21 Months Date of Last Transfusion (if within last 3 months) Ever experience any problems No 04/08/25 09:21 with transfusion(s)? Specify any problems Hx of Preganancy in last 3 No 04/08/25 09:21 Months Nurse Filling Out Transfusion DSCHRIBER 04/08/25 09:21 & Questions: Date: 04/08/25 04/08/25 09:21 Time: 09:22 04/08/25 09:21 Patient unable to answer at this time (ie. confused, unrespo /Reproduction History /Reproductive History - accounts supervisor: /Reproductive Hx- accounts supervisor Hx Now No 04/08/25 09:21 Gestational Age (in weeks): EDC: Hx Hx Para Hx Section SAB No 04/08/25 09:21 Active Medications Active Medications: Current Medications Generic Name Dose Route Start Last Admin Trade Name Glendy PRN Reason Stop Dose Admin Cefazolin Sodium 2 gm/ Sodium 110 mls @ 200 mls/hr 04/15/25 07:30 Chloride IV 04/15/25 08:02 INTRAOP ONE Lactated Ringer's 1,000 mls @ 15 mls/hr 04/15/25 06:15 04/15/25 06:40 IV 15 mls/hr .Q48H CECILIA Administration PFSH Medical History History of hiatal hernia Chest congestion Lumbar radiculopathy, right Thyroid nodule Positive hepatitis serology Preoperative evaluation to rule out surgical contraindication Ambulates with cane Rheumatoid arthritis Back pain Injury of head and neck History of pain when walking Osteopenia with high risk of fracture Flu vaccine need Pain of right lower extremity Right-sided chest wall pain Nocturia MRSA infection Hepatitis Former smoker History of stress test Fatigue Debility Balance problems Port-A-Cath in place Urinary frequency Dysuria Health care maintenance Osteoporosis Anxiety and depression History of echocardiogram Wears partial dentures Wears glasses Post-menopausal Cancer Rheumatoid arthritis High cholesterol History of hiatal hernia Gastric reflux Screening for breast cancer History of breast cancer Interstitial cystitis Neoplasm of unspecified behavior of bladder med port placement Rheumatoid arthritis pain Depression Hyperlipidemia Breast cancer Home Medications ?Medication ?Instructions ?Recorded ?Last Taken ?Type cholecalciferol (vitamin D3) 25 1,000 unit PO MOFR sup plement 09/01/15 02/16/23 History mcg (1,000 unit) tablet (Vitamin D3) folic acid 1 mg tablet 1 mg PO DAILY@0800 supplemen t 09/01/15 02/16/23 History multivitamin with folic acid 400 1 tab PO DAILY supple ment 09/01/15 02/16/23 History mcg tablet (Thera) methotrexate sodium 2.5 mg tablet 6 tab PO WE RA 01/2102/12/23 History ascorbic acid (vitamin C) 1,000 mg 1 g PO DAILY SUPPLE MENT 03/21/21 02/16/23 History tablet desmopressin 0.2 mg tablet 0.1 mg PO QHS urination 02/15/23 History famotidine 20 mg tablet (Pepcid) 20 mg PO DAILY heartb urn 02/19/23 04/15/25 05:30 History Handicap Placard #1 ea 02/08/24 Unknown Rx Cimcza 400 mg .Route QMONTH 4 Unknown History alendronate 70 mg tablet 70 mg PO QWEEK BONES #10 tab s 10/06/24 Unknown Rx simvastatin 20 mg tablet 20 mg PO QHS for cholesterol #90 10/28/24 Unknown Rx TABLETS duloxetine 30 mg capsule,delayed 30 mg PO BID #180 ea 01/06/25 04/15/25 05:30 Rx release Allergy/AdvReac Type Severity Reaction Status Date / Time No Known Allergies Allergy Verified 04/15/25 06:29 Family History Father Diabetes Prostate CA Mother Arthritis Lupus Other Cancer Heart disease Parkinsons disease Surgical History History of vascular access device History of back surgery History of hip surgery History of bladder surgery History of cystoscopy Hx of colonoscopy Hx of breast lump removal History of bladder surgery Social History household members: spouse current occupational status: retired Smoking Status: Former smoker alcohol intake: never substance use type: does not use Review of Systems (Anesthesia) ROS Narrative System reviewed and no additional complaints, except as documented.
--- NOTE | 2025-04-15 07:30 | BON_PTH ---
PATIENT: CHARMAINE DÍAZ LOC: [facility] [place] U#:[id number] AGE/SX: 79/F ROOM: RE04/15/[address]: Dr. Chai Mercer DPM : 1945 BED: DIS: 04/15/2025 SPEC #: [id number] RECD: 04/15/25 10:43 STATUS: PARKER ROBB #: [id number] DARIO: 04/15/25 07:[address]: Chai Mercer DEPT: SURGICAL PATHOLOGY RECD BY: Edmundo Garcia ENTERED: 04/15/25 14:57 SP TYPE: Bone OTHR DR: Dr. Melissa Laura MD Tissues: A - Toe, NOS Procedures: Decalcification bone/plaque Surgery Specimen Level IV HEADER OPERATION: Resection of bone from the left first and second digits PRE-OP DIAGNOSIS: Exostosis left 1st toe, exostosis left 2nd toe, left hallux valgus, left 2nd digit hammer toe TISSUE SUBMITTED: A- Bone - 1st and 2nd left toes MICROSCOPIC DIAGNOSIS A. Bone, toes, left 1st and 2nd, excision: Articular bone and soft tissue with reactive changes. MICROSCOPIC DESCRIPTION Slides are reviewed. GROSS DESCRIPTION A. Received in formalin labeled with the patient's name and date of . Designated as bone 1st and 2nd left toes are 3 undesignated yellow-hernandez pink bone fragments, 0.9 x 0.3 x 0.1 cm to 1.1 x 0.7 x 0.7 cm. The largest bone fragment is surfaced by hernandez glistening cartilage. The specimen is entirely submitted in 2 cassettes, following decalcification. MD 04/15/2025 CPT:[id number]
[2025-04-15] MEDS: Cefazolin 1 GM/5 ML Vial 2 GM IV (07:32)
[2025-04-15] MEDS: Lidocaine 1% (5 ml sdv) 5 ML Vial 6 ML IV (07:37)
--- NOTE | 2025-04-15 08:50 | OP.PCM_ITS ---
Operative Report (Standard) Operative Information Date of Procedure: 04/15/25 Pre-Operative Diagnosis: Hallux valgus, left 2nd digit hammer toe, left Post-Operative Diagnosis: Same Surgery/Procedure Performed: Sky osteotomy left 1st toe Arthroplasty left 2nd toe perioperative manager: No Type of Anesthesia: Local MAC RN Documented Start/Stop Times: Operation Date: 04/15/25 07:30 Case Time Into Pre-Op 04/15/25 06:05 Out of Pre-Op 04/15/25 07:29 Anesthesia Start 04/15/25 07:32 Into Room 04/15/25 07:32 Procedure Start 04/15/25 07:53 Procedure End 04/15/25 08:43 Anesthesia End 04/15/25 08:51 Out of Room 04/15/25 08:51 Into Recovery 04/15/25 08:53 Out of Recovery 04/15/25 09:39 Into Phase II Recovery 04/15/25 09:40 Out of Phase II 04/15/25 11:41 Procedure Start Time: 07:53 Procedure Stop Time: 08:43 Select all DRAINS/GRAFTS/IMPLANTS that apply: Implanted device Implanted device details: Aptara [id number] staple Estimated Blood Loss: < 1 mL Specimen collected: Yes Description of specimen(s) removed: Bone from left 1st and 2nd toes sent to pathology Description of surgery: Indications: 79 year old female with history of rheumatoid arthritis, with deformity of toes left foot. She has chronic on and off ulceration to the medial aspect of left 2nd toe due to rubbing. This causes pain and wounds and has resulted in infection. Currently the wound is healed and infection resolved however she has elected to proceed with surgical intervention to help try to prevent recurrence and to reduce pain. The procedures were discussed with her in detail, reviewed possible benefits vs risks, goals, expectations and estimated healing time. The consent forms were reviewed with her and she freely signed them. No guarantees or warranties were given nor implied. Operative Procedure: Patient was brought back into the operating room and was placed on the operating room table in the supine position. Patient was carefully secured to the operating room table with a safety belt around her waist. A timeout was performed and patient was properly identified and surgical plan confirmed. A well padded pneumatic tourniquet was applied around the patient's left ankle. The patient received MAC anesthesia per the anesthesia team. A total of 10mL of 0.5% Bupivacaine plain was given as a local nerve block around the patient's left 1st and 2nd toes after the overlying skin was cleansed with 70% Isopropyl alcohol. The patient's left foot was scrubbed, prepped and draped in the usual aseptic fashion. Attention was directed to the patient's left foot, the 1st toe was in hallux valgus and laterally deviated into the 2nd toe. The 2nd toe was a hammer toe. The area of maximal rubbing between the toes is the medial 2nd toe at level of the head of the proximal phalanx. The ulceration is healed, no drainage or evidence of active infection at this time. The patient's left foot was elevated for several minutes and the left ankle pneumatic tourniquet was inflated to 250mmHg. Left 1st toe Sky Osteotomy: Attention was directed to the dorsal medial aspect of the first toe. A longitudinal linear skin incision was made over the proximal phalanx and deepened through sharp dissection. Periosteal structures were partially reflected to expose the proximal phalanx. Using a sagittal saw, a medially-based closing wedge osteotomy was performed through the proximal phalanx. A wedge of bone was removed, and the osteotomy was closed to correct the hallux valgus deformity. The bone that was resected was sent to pathology. The tissues in the surgical site were noted to be healthy and viable. The osteotomy was fixated using a [employer] 10 mm x 10 mm staple, which provided stable internal fixation. Alignment was confirmed both clinically and fluoroscopically. The wound was irrigated with copious amounts of normal sterile saline and closed in layered fashion using 3-0 Vicryl for deep tissues and 4-0 Monocryl for skin. Left 2nd toe arthroplasty: Attention was directed to the dorsal aspect of the second toe. A longitudinal linear incision was made over the proximal interphalangeal joint and carried down through sharp dissection. The long flexor tendon was split down the middle in line with the fibers, and left intact, exposing the head of the proximal phalanx. The head of the proximal phalanx was then resected using a sagittal saw, creating a smooth surface. The resected bone was sent to pathology with bone from the 1st toe. No implant or fixation was required. The digit was evaluated and noted to be in corrected alignment. The surgical site was irrigated with copious amounts of normal sterile saline. There was no evidence of deep infection, and tissues were healthy and viable. The skin was reapproximated using 4-0 Monocryl. The pneumatic tourniquet was deflated (total time was 48 minutes), and there was immediate return of warmth and perfusion to the patient's foot and to all five toes. CFT < 2 seconds to all toes. A dressing was applied which consisted of betadine soaked adaptic, 4x4 gauze, kerlix and aleyda dressing. The patient tolerated the above procedure well and anesthesia well with no complications. The patient was transported from the operating room to the recovery room with vital signs stable and in good condition. Post operative orders were placed. Reviewed discharge instructions were patient both verbally and written. The patient will follow up as as outpatient. Surgical Findings: As noted above Complications Complications: No
--- NOTE | 2025-04-15 08:56 | PCM.POST.ANE ---
Anesthesia: Postop Eval I Current Vital Signs Temperature: 98.6 F Pulse Rate: 88 Blood Pressure: 135/65 Respiratory Rate: 16 Pulse Ox: 98 Assessment Airway patent: Yes Spontaneous unlabored respirations: Yes nausea: No Vomiting: No Anesthesia Complication: No Fluid Hydration Crystalloid volume administer (ml): 700 Total IV fluid infused: 700 Progress Note Anesthesia document: Postop Eval 1 completed: Yes
--- NOTE | 2025-04-15 09:00 | PCM.DC ---
Discharge Instructions DC O2, CPAP, BIPAP needs Home O2 Discharge instructions: No Dressing / Incision Discharge Activity: May Not Drive and Use Walker Weight Bearing Status: Partial weight bearing (Left foot: avoid weight to toes, ok to put weight on left heel for short distances with assistance of walker) Keep extremity elevated above heart level: Operative Extremity (Keep left foot elevated at least 50 minutes of every hour with pillows) Dressing / Incision Call your doctor if your incision/area has: Sudden Increased Bleeding and Foul Smelling Discharge Call your doctor if you observe: Fever of 101 or Higher, Shortness of breath, Chest pain, Increased palpitations (irregular heartbeat), Calf discomfort and Uncontrolled pain Change Dressing in: do not change dressing Remove Dressing in: do not remove dressing Cleanse incision/area with: Keep Dressing Clean & Dry Follow Up Care Please Follow Up With: Chai Mercer DPM When: in office at [facility], call Dr. Mercer sooner if needed Office: [phone] Test Results: Test results from this visit will be discussed in further detail at your follow-up appointment, if applicable. Discharge Plan Admission Attending Provider: Chai Mercer Primary Care Provider: Melisas Laura Instructions Print Language: Citizen [place] Discharge Orders/Prescriptions Prescriptions: New hydrocodone-acetaminophen 5-300 mg tablet 1 tab PO Q8H PRN (Reason: pain) 2 Days Qty: 6 0RF Continued desmopressin 0.2 mg tablet 0.1 mg PO QHS Cimcza 400 mg .Route QMONTH Rx Instructions: 400 mg every month; 400mg q month alendronate 70 mg tablet 70 mg PO QWEEK Qty: 10 1RF folic acid 1 MG tablet 1 mg PO DAILY@0800 cholecalciferol (vitamin D3) [Vitamin D3] 1,000 UNIT tablet 1,000 unit PO MOFR multivitamin with folic acid [Thera] 1 TABLET tablet 1 tab PO DAILY methotrexate sodium 2.5 MG tablet 6 tab PO WE Rx Instructions: on wednesdays ascorbic acid (vitamin C) 1,000 mg Tablet 1 g PO DAILY famotidine [Pepcid] 20 mg tablet 20 mg PO DAILY (DME) Handicap Placard See Rx Instructions .ROUTE .MEDSUPPLY Qty: 1 0RF Rx Instructions: As directed, length of time 3 years simvastatin 20 mg tablet 20 mg PO QHS Qty: 90 3RF duloxetine 30 mg capsule,delayed release(DR/EC) 30 mg PO BID Qty: 180 2RF Referrals / Follow Up: Melissa Laura MD [Primary Care Provider] - Disposition Disposition (needs filled in before D/C Order can be placed): Home, Self Care
--- NOTE | 2025-04-15 09:20 | RAD_ITS ---
PROCEDURE: FOOT MIN 3 VIEWS 04/15/2025 REASON FOR EXAM: POST OP PODIATRY SURGERY TECHNIQUE: Procedure Code: RADFO Modality: DX Procedure: FOOT MIN 3 VIEWS Laterality: Left foot COMPARISON: Prior study done earlier in the day. FINDINGS: Bones: The patient is status post osteotomy and fusion at the base of the proximal phalanx of the 1st toe. Joints: Degenerative changes at the 1st metatarsophalangeal joint. Soft tissues: Soft tissue swelling. Other: RAD/Foot min 3 Views IMPRESSION: Status post osteotomy and fusion at the base of the proximal phalanx of the 1st toe. Postoperative soft tissue swelling. Reading Location: [place] [id number]
--- NOTE | 2025-04-15 11:38 | SUR.PHASEII ---
changed pt surgical dressing
--- NOTE | 2025-04-15 21:22 | POSTOPAN2_ITS ---
Anesthesia Postop Eval I Sum Postop Eval Completion status Anesthesia document: Postop Eval 1 completed: Yes Anesthesia Postop Eval I Summary Anesthesia Postop Eval I Summary: Anesthesia Postop Eval I: Assessment Summary Airway patent Yes 04/15/25 08:56 [email or web address] [email or web address] Spontaneous unlabored Yes 04/15/25 08:56 HEMATOLOGIST [email or web address] respirations Mental status nausea No 04/15/25 08:56 HEMATOLOGIST [email or web address] Vomiting No 04/15/25 08:56 HEMATOLOGIST [email or web address] Anesthesia Postop Eval I: Fluid Summary Crystalloid volume administer 700 04/15/25 08:56 [email or web address] [email or web address] (ml) Colloids volume administered ( ml) Blood Product volume administered (ml) Total IV fluid infused 700 04/15/25 08:56 [email or web address] [email or web address] Anesthesia Postop Eval I: Summary Notes Anesthesia Complication No 04/15/25 08:56 [email or web address] [email or web address] Anesthesia Complication Comment: Post-operative progress note Anesthesia: Postop Eval II Evaluation Mental status: Awake and Calm Pain Level: 1 nausea: No Vomiting: No Complications Anesthesia Complication: No
--- NOTE | 2025-04-15 21:22 | PCM.POSTANE2 ---
Anesthesia Postop Eval I Sum Postop Eval Completion status Anesthesia document: Postop Eval 1 completed: Yes Anesthesia Postop Eval I Summary Anesthesia Postop Eval I Summary: Anesthesia Postop Eval I: Assessment Summary Airway patent Yes 04/15/25 08:56 CRIME [email or web address] Spontaneous unlabored Yes 04/15/25 08:56 CRIME [email or web address] [email or web address] respirations Mental status nausea No 04/15/25 08:56 CRIME [email or web address] [email or web address] Vomiting No 04/15/25 08:56 CRIME [email or web address] [email or web address] Anesthesia Postop Eval I: Fluid Summary Crystalloid volume administer 700 04/15/25 08:56 CRIME [email or web address] [email or web address] (ml) Colloids volume administered ( ml) Blood Product volume administered (ml) Total IV fluid infused 700 04/15/25 08:56 CRIME [email or web address] [email or web address] Anesthesia Postop Eval I: Summary Notes Anesthesia Complication No 04/15/25 08:56 CRIME [email or web address] [email or web address] Anesthesia Complication Comment: Post-operative progress note Anesthesia: Postop Eval II Evaluation Mental status: Awake and Calm Pain Level: 1 nausea: No Vomiting: No Complications Anesthesia Complication: No
== END 2025-04-15 11:42 | disposition home or self-care (01) ==
LOC: SDC 05:55 → AC 05:55
PROVIDERS: PCP Internal Medicine; Referring Provider Podiatrist; Visit Provider Podiatrist
PROC: (CPT 28306; principal; 2025-04-15 07:15)
DX: M20.12 Hallux valgus (acquired), left foot (principal); L97.529 Non-pressure chronic ulcer of other part of left foot with unspecified severity; F41.9 Anxiety disorder, unspecified; E04.1 Nontoxic single thyroid nodule; F32.A Depression, unspecified; E78.00 Pure hypercholesterolemia, unspecified; K21.9 Gastro-esophageal reflux disease without esophagitis; Z87.891 Personal history of nicotine dependence; Z79.899 Other long term (current) drug therapy
CPT/HCPCS: 28306; 28285; 01480; 73620; 73630; 76000; 88305; 88311; 93005; C1713; J2405

== ENCOUNTER → 2025-05-17 | Outpatient (CLI) | payer MEDICARE, OTHER, SELFPAY | END | disposition home or self-care (01) | LOC: LABSPEC 12:07 | PROVIDERS: PCP Internal Medicine; Referring Provider Surgery; Visit Provider Surgery | DX: E04.1 Nontoxic single thyroid nodule (principal) | CPT/HCPCS: 88108; 88161; 88313 ==

== ENCOUNTER → 2025-05-19 | Outpatient (CLI) | payer MEDICARE, OTHER, SELFPAY ==
[2025-05-19 14:21] LABS: Free T3 2.9 pg/mL (2.18-3.98)
== END | disposition home or self-care (01) ==
LOC: LAB 12:43
PROVIDERS: PCP Internal Medicine; Referring Provider Surgery; Visit Provider Surgery
DX: E04.1 Nontoxic single thyroid nodule (principal)
CPT/HCPCS: 36415; 84439; 84443; 84481